=== PATIENT | female | born 1940 | race Caucasian/White ===

== ENCOUNTER 2017-08-20 11:13 | Outpatient (CLI) | payer MEDICARE ==
--- NOTE | 2017-08-20 16:34 | CT ---
CT THORACIC SPINE WITHOUT CONTRAST: Technique: Multiple axial tomograms were obtained through the thoracic spine with multiplanar reconst ructions. History: Follow up compression fracture. Comparison: MRI 06-04-17. That exam revealed edema and mild compression of the T7 vertebra. FINDINGS: Mild anterior wedging of the T7 vertebra is again noted with loss of central and anterior height ron mated in the 30% range. The degree of height loss has progressed slightly since the 06-04-17 exam. The re is some mottled sclerosis within this vertebra. The other thoracic vertebra maintain height and alignment. Degenerative changes are seen with anterio r and lateral osteophytes. Hemangioma is noted involving the T1 vertebra which corresponds to MRI fin dings. No evidence of disc bulge or disc protrusion seen at the T6-7 or T7-8 levels. IMPRESSION: Compression fracture involving the T7 vertebra is again noted. There is also central and anterior hei ght loss which has slightly progressed when compared to the prior MRI. No retropulsion. POS: [facility]
== END 2017-08-20 11:14 | disposition home or self-care (01) ==
LOC: TBSIIMAG 11:13
PROVIDERS: ATTEND Surgery
DX: M48.54XA Collapsed vertebra, not elsewhere classified, thoracic region, initial encounter for fracture (principal)
CPT/HCPCS: 72128

== ENCOUNTER 2019-12-16 11:53 | Outpatient (CLI) | payer MEDICARE ==
--- NOTE | 2019-12-17 11:03 | PET ---
PET CT: HISTORY: An 79-year-old female with moderately differentiated pancreatic adenocarcinoma. Exam requested for i nitial staging. TECHNIQUE: PET scanning with CT attenuation was performed from the base of the brain through the proximal thighs following the intravenous administration of 12.4 mCi [id number] in the left antecubital fossa. CORRELATION: CT abdomen and pelvis of 11/20/2019. FINDINGS: There is hypermetabolic activity in the pancreatic body mass with an SUV of 5.8. No sylvia hypermetabolism is seen in the neck, chest, abdomen, or pelvis. No hypermetabolic pulmonary nodules, liver, adrenal, or skeletal lesions are seen. There are a couple of FDG intense foci in the sigmoid colon with an SUV of 9.1. Also noted is a focu s of intense uptake in the small bowel loop in the mid abdomen just anterior to the abdominal aorta w ith an SUV of 6.7. There is physiologic activity in the GI and tracts. The CT scan used for attenuation correction demonstrates no evidence of pleural effusions or ascites. IMPRESSION: 1. Pancreatic malignancy. 2. Further evaluation with colonoscopy and capsule endoscopy is recommended to evaluate the bowel fi ndings. POS: [facility]ICK[facility]
== END 2019-12-16 11:54 | disposition home or self-care (01) ==
LOC: PET 11:53
PROVIDERS: ATTEND Internal Medicine Hematology & Oncology
DX: C25.9 Malignant neoplasm of pancreas, unspecified (principal)
CPT/HCPCS: 78815; A9552

== ENCOUNTER 2020-02-27 07:21 | Outpatient (CLI) | payer MEDICARE, OTHER ==
[2020-02-27 15:49] LABS: #Eosinphils 0.2 thou/uL (0.0-0.7); #Lymphocytes 2.9 thou/uL (1.20-3.40); #Neutrophils 6.3 thou/uL (1.40-6.50); %Basophils 0.5 % (0.0-1.0); %Eosinophils 1.8 % (0.0-10.0); %Lymphocytes 27.7 % (21.0-51.0); %Monocytes 9.9 % (0.0-10.0); %Neutrophils 60.1 % (42.0-75.0); Hemoglobin 10.9 g/dL (12.0-16.0); Mean Corpuscular HGB CONC 31.9 g/dL (32.0-36.0); Mean Corpuscular Hemoglobin 29.9 pg (27.0-31.0); Mean Corpuscular Volume 93.8 fL (78.0-98.0); Platelet Count 458 thou/uL (130-400); RBC Distribution Width 12.4 % (11.5-14.5); Red Blood Cell (RBC) Count 3.66 mill/uL (4.20-5.40); White Blood Cell (WBC) Count 10.5 thou/uL (4.8-10.8)
--- NOTE | 2020-02-27 16:07 | RAD ---
PA AND LATERAL OF THE CHEST: 02/27/20 INDICATION: Preadmission chest radiograph. COMPARISON: Prior exam dated 02/18/20. FINDINGS: Chronic lung changes are stable appearing. Heart size is normal. The aorta is tortuous. There is mild spondylosis of the thoracic spine. Mild wedge compression abnormality of T8 is stable appearing. IMPRESSION: No acute cardiopulmonary abnormality. POS: [facility]
[2020-02-27 16:12] LABS: Anion Gap 14 mmol/L (10-20); BUN (Urea Nitrogen) 10 mg/dL (9.8-20.1); Calc. Creatinine Clearance 0 mL/min (70-130); Calcium 8.9 mg/dL (7.8-10.44); Carbon Dioxide 21 mmol/L (23-31); Chloride 102 mmol/L (98-107); Estimated GFR-MDRD 51; Glucose 285 mg/dL (83-110); Potassium 3.7 mmol/L (3.5-5.1); Sodium 133 mmol/L (136-145)
[2020-02-28 16:49] LABS: SARS-CoV-2 MS2 Positive; SARS-CoV-2 N Gene Negative; SARS-CoV-2 S Gene Negative; SARS-CoV-2 orf1ab Negative
== END 2020-02-27 07:22 | disposition home or self-care (01) ==
LOC: LABBT 07:21
PROVIDERS: ATTEND Surgery
DX: Z01.818 Encounter for other preprocedural examination (principal); Z11.59 Encounter for screening for other viral diseases; C25.9 Malignant neoplasm of pancreas, unspecified
CPT/HCPCS: 71046; 80048; 85025; U0003; 87635

== ENCOUNTER 2020-03-01 09:38 | Day surgery (SDC) | payer MEDICARE ==
[2020-02-27 14:39] VITALS: BMI 26.4
[2020-03-01] MEDS ORDERED: Propofol 500 MG/50 ML VIAL ONE (10:49)
[2020-03-01] MEDS ORDERED: Lidocaine 1% w/Epinephrine 1:100K 20 ML VIAL ONE (11:03)
[2020-03-01] MEDS ORDERED: Bupivacaine 0.25% HCL 30 ML VIAL ONE (11:03)
--- NOTE | 2020-03-01 12:22 | RAD ---
RADIOGRAPH CHEST 1 VIEW: DATE: 03/01/2020 HISTORY: Status post MediPort placement in 79-year-old female with pancreatic cancer. COMPARISON: 02/27/2020 FINDINGS: The thoracic aorta is tortuous and ectatic. There is no evidence of airspace density, cardiomegaly, p ulmonary edema, or pneumothorax. The lateral costophrenic angles are not effaced. There is a new right vascular access port loops and descending from the right medial neck, with distal tip overlying the right hilum. IMPRESSION: 1) No acute pulmonary findings. 2) ectasia of thoracic aorta. 3) right-sided implantable vascular access port placement without pneumothorax.
[2020-03-01] MEDS ORDERED: Lidocaine 1% PF 5 ML VIAL ONE (13:10)
--- NOTE | 2020-03-01 23:45 | OP ---
DATE OF PROCEDURE: 03/01/2020 PREOPERATIVE DIAGNOSIS: Pancreatic cancer. POSTOPERATIVE DIAGNOSIS: Pancreatic cancer. PROCEDURE PERFORMED: Tunneled central line with subcutaneous port (MediPort). ANESTHESIA: General. ESTIMATED BLOOD LOSS: Minimal. COMPLICATIONS: None. SPECIMEN: None. FINDINGS: Tip of the catheter is at atriocaval junction. DESCRIPTION OF PROCEDURE: The patient was taken to the operating room and laid supine on the operating room table. After general anesthetic was obtained, the bladder, neck, and chest were prepped and draped in a sterile fashion. Local anesthetic was infiltrated over the right internal jugular vein. Internal jugular vein was cannulated using a 22-gauge spinal needle followed by a Seldinger needle. Wire was passed into the superior vena cava under fluoro guidance. A small link was made at the wire entrance side. A separate 3 cm incision was made in the right upper chest. Subcutaneous pocket was made the lower incision, tubing for the MediPort tunnel from the inferior to the superior incision, an introducer sheath was placed over the wire into the superior vena cava under fluoro guidance. The dilator and wire were removed. The end of the catheter sewed into the sheath. The sheath was peeled away. The tip of the catheter was at the atriocaval junction. The MediPort tubing was cut to fit the MediPort at the lower incision, connected to the MediPort, which was sewn to the chest wall in the subcutaneous pocket using Prolene. The MediPort flushes and blaine blood without difficulties, flushed with a heparin solution. The wounds were all irrigated and closed using 3-0 Vicryl, 4-0 Monocryl and Dermabond. The patient was sent to Recovery in stable condition. All instrument counts, needle counts, and lap counts were correct. Job ID: [id number]
--- NOTE | 2020-03-02 11:39 | EKG ---
Test Reason : PREOP Blood Pressure : / mmHG Vent. Rate : 080 BPM Atrial Rate : 080 BPM P-R Int : 172 ms QRS Dur : 072 ms QT Int : 394 ms P-R-T Axes : 049 000 016 degrees QTc Int : 454 ms Normal sinus rhythm Cannot exclude Inferior infarct , age undetermined Low voltage QRS Abnormal ECG Confirmed by JOANN MAYNARD ([id number]) on 03/02/2020 11:39:24 AM Referred By: AMY Confirmed By:JOANN MAYNARD
== END 2020-03-01 13:30 | disposition home or self-care (01) ==
LOC: SDC 09:38
PROVIDERS: ATTEND Surgery
PROC: 0JH60WZ Insertion of Totally Implantable Vascular Access Device into Chest Subcutaneous Tissue and Fascia, Open Approach (ICD-10-PCS; principal; 2020-03-01)
PROC: 02HV33Z Insertion of Infusion Device into Superior Vena Cava, Percutaneous Approach (ICD-10-PCS; 2020-03-01)
PROC: B518ZZA Fluoroscopy of Superior Vena Cava, Guidance (ICD-10-PCS; 2020-03-01)
DX: C25.9 Malignant neoplasm of pancreas, unspecified (principal); K21.9 Gastro-esophageal reflux disease without esophagitis; E78.5 Hyperlipidemia, unspecified; E11.9 Type 2 diabetes mellitus without complications; Z79.4 Long term (current) use of insulin; Z79.82 Long term (current) use of aspirin; Z79.899 Other long term (current) drug therapy; Z88.1 Allergy status to other antibiotic agents; Z88.2 Allergy status to sulfonamides; Z91.048 Other nonmedicinal substance allergy status
CPT/HCPCS: 36416; 71045; 76000; 93005; 93010; C1788; J0690; J1642; J2001; J2704; S0020

== ENCOUNTER 2020-03-31 08:07 | Inpatient (IN) | payer MEDICARE, OTHER ==
--- NOTE | 2020-03-31 08:43 | RAD ---
EXAM: CHEST ONE VIEW HISTORY: Altered mental status. Sepsis alert. Diarrhea. History of pancreatic cancer. COMPARISON: 03/01/2020 FINDINGS: Right-sided Mediport remains in place. The cardiac silhouette and pulmonary vasculature are within no rmal limits. No consolidation or pleural fluid is seen. Chest is stable when compared to prior exam. IMPRESSION: No acute cardiopulmonary process.
[2020-03-31 09:03] LABS: Base Excess-Venous -18.5 mmol/L (-2.0 to 3.0); Bicarbonate (HCO3v) 7.4 mmol/L (22.0-28.0); CO2 Tension (PvCO2) 18.3 mmHg (40.0-50.0); Calcium, Ionized 1.14 mmol/L (See Comments:); Chloride 88 mmol/L (98-107); Hemoglobin - Calc 10.2 g/dL (12.0-16.0); Potassium 5.3 mmol/L (3.5-5.1); Sodium 113 mmol/L (138-145); T. Carbon Dioxide 7.9 mmol/L (22.0-28.0); vO2 Saturation-calc 60.2 % (60.0-85.0)
[2020-03-31 09:03] LABS: Hemoglobin 10.4 g/dL (12.0-16.0); Mean Corpuscular HGB CONC 31.1 g/dL (32.0-36.0); Mean Corpuscular Hemoglobin 29.5 pg (27.0-31.0); Mean Corpuscular Volume 94.9 fL (78.0-98.0); Red Blood Cell (RBC) Count 3.52 mill/uL (4.20-5.40); White Blood Cell (WBC) Count 1.2 thou/uL (4.8-10.8)
[2020-03-31] MEDS ORDERED: Ondansetron PF 4 MG/2 ML Vial ONE (09:08)
[2020-03-31] MEDS ORDERED: Fentanyl 100 MCG/2 ML VIAL ONE ×2 (09:08→10:57)
[2020-03-31] MEDS ORDERED: Insulin Regular 300 UNITS/3 ML VIAL ONE (09:08)
[2020-03-31] MEDS ORDERED: Insulin Regular 100 units/100 ml in NS IVPB SCH (09:15)
[2020-03-31 09:20] LABS: Magnesium 2.1 mg/dL (1.6-2.6); Phosphorus 5.8 mg/dL (2.3-4.7)
[2020-03-31 09:23] LABS: ALT (SGPT) 18 U/L (8-55); AST (SGOT) 9 U/L (5-34); Alkaline Phosphatase 94 U/L (40-110); BUN (Urea Nitrogen) 58 mg/dL (9.8-20.1); Bilirubin, Total 1.1 mg/dL (0.2-1.2); Calc. Creatinine Clearance 0 mL/min (70-130); Calcium 7.6 mg/dL (7.8-10.44); Chloride 91 mmol/L (98-107); Estimated GFR-MDRD 21; Globulin 1.8 g/dL (2.4-3.5); Potassium 5.3 mmol/L (3.5-5.1); Protein, Total 4.8 g/dL (6.0-8.3)
[2020-03-31 09:24] LABS: Band 20 % (5-11); Burr Cells MODERATE= 6-15 cells (100X) (0-1/hpf); Lymphocytes 32 % (21-51); MDiff Complete? YES; Mean Platelet Volume 9.5 fL (7.4-10.4); Metamyelocyte 4 % (0-0); Monocytes 16 % (0-10); Neutrophil 28 % (42-75); Nucleated RBC 2 % (0); Platelet Count 92 thou/uL (130-400); Platelet Morphology Comment Appears Decreased; Polychromasia SLIGHT = 2-3 cells (100X) (0-2/hpf); RBC Distribution Width 12.3 % (11.5-14.5); Toxic Granulation SLIGHT
[2020-03-31 09:25] LABS: Carbon Dioxide Less than 8 mmol/L (23-31); Glucose 729 mg/dL (83-110); Sodium 116 mmol/L (136-145)
--- NOTE | 2020-03-31 10:26 | CT ---
CT ABDOMEN AND PELVIS WITHOUT CONTRAST: Date: 03/31/2020 HISTORY: 79-year-old female with diarrhea, nausea, and vomiting. Patient is undergoing chemotherapy for pancre atic cancer. COMPARISON: 11/20/2019. FINDINGS: Absence of oral and IV contrast reduces the sensitivity of exam, particularly for evaluation of solid organs and bowel. The lung bases are unremarkable. There is interval development of portal venous gas in the liver. The pattern of gas is peripheral. Th ere is pneumatosis in the small bowel sams in the right lower quadrant with a small amount of extral uminal air. There is a small to moderate amount of free fluid in the pelvis. There is colonic diverti culosis. There is thickening of the wall of the descending colon with pericolonic inflammatory change s in the left upper quadrant and mid abdomen. No calcified gallstones are seen. No calculi seen in the kidneys, ureters, or the urinary bladder. No hydroureteronephrosis noted on either side. There are vascular calcifications without evidence of aneurysmal dilatation of the abdominal aorta. A hiatal hernia is present. There are degenerative changes in the spine. IMPRESSION: 1. Portal venous gas, pneumatosis with bowel perforation. Findings are highly suspicious for ischemi c bowel. 2. Colonic diverticulosis with diverticulitis on the left. Discussed over the phone with LAURENCE Winston, in the ER at [address] Bustamante at 10:35 am. CODE CR.
[2020-03-31] MEDS ORDERED: PROPOFOL 200 MG/20 ML VIAL ONE (10:42)
[2020-03-31] MEDS ORDERED: PHENYLEPHRINE-NS 100 MCG/ML 10 ML SYRINGE ONE (10:42)
[2020-03-31] MEDS ORDERED: EPHEDRINE 25 MG/5 ML SYRINGE ONE ×2 (10:42)
[2020-03-31] MEDS ORDERED: Rocuronium Bromide 10 MG/ML (10ML VIAL) ONE (10:42)
[2020-03-31] MEDS ORDERED: Lidocaine 1% PF 5 ML VIAL ONE (10:42)
[2020-03-31] MEDS ORDERED: Succinylcholine Chloride 20 MG/ML 10 ml SYRINGE FS ONE (10:42)
[2020-03-31] MEDS ORDERED: Calcium Chloride 1 GM/10 ML Abboject SYRINGE ONE ×3 (10:42→12:07)
[2020-03-31] MEDS ORDERED: Piperacillin/Tazobactam 4.5 GM VIAL ONE (10:57)
[2020-03-31] MEDS ORDERED: Phenylephrine 10 MG/ML VIAL ONE (11:04)
[2020-03-31] MEDS ORDERED: Ketamine 50 MG/ML (10ML VIAL) ONE (11:04)
[2020-03-31] MEDS ORDERED: Fentanyl 250 MCG/5 ML VIAL ONE (11:04)
[2020-03-31] MEDS ORDERED: Albumin 5% 500 ML ONE ×2 (11:04→12:16)
[2020-03-31] MEDS ORDERED: Midazolam HCl 2 mg/2 ml Vial ONE (11:04)
[2020-03-31 11:06] LABS: Actual Bicarbonate (HCO3a) 5.6 mEq/L (22-28); Analyzer IN Cardio ER; Base Excess (BEa) -20.6 mEq/L (-2.0 to +3.0); Calcium, Ionized (arterial) 1.12 mmol/L (1.12-1.30); Carboxyhemoglobin (COHb) 0.3 gm% (0.0-3.0); Hemoglobin (Hb) 9.9 g/dL (12.0-16.0); O2 Tension (PaO2), arterial 107.5 mmHg (> 60.0); Potassium - ABG Lab 4.07 mmol/L (3.70-5.30)
[2020-03-31 11:11] LABS: pH, Arterial 7.19 (7.35-7.45)
[2020-03-31 11:12] LABS: Puncture Site RRA
[2020-03-31] MEDS ORDERED: Sodium Bicarb 50 MEQ/50 ML VIAL ONE ×3 (11:32→12:07)
[2020-03-31 11:35] LABS: INR-International Normal Ratio 2.2; PTT 28.1 sec (22.9-36.1); Prothrombin Time 24.1 sec (12.0-14.7)
[2020-03-31] MEDS ORDERED: Norepinephrine 4 MG/4 ML VIAL ONE (11:42)
--- NOTE | 2020-03-31 11:54 | PDOC.FPRHP ---
- History of Present Illness Chief Complaint: Abdominal Pain, N/V History of Present Illness: Patient is an 79 yo female who was sent to the emergency department by her oncologist Dr. Gamble due to continued diarrhea, nausea, and vomiting that started approximately 1 week ago on March 23. Yesterday she developed severe abdominal pain which has gotten progressively worse since. She developed some additional SOB this morning which prompted the patient to come to the ER. The patient is currently undergoing chemotherapy for pancreatic cancer. Her last chemo was March 23. Patient currently states she is in severe pain, having difficulty forming sentences secondary to this. Also continues to complain of having some difficulty breathing. Per ED physician, preliminary report of CT abdomen was called in and shows possible bowel perforation and ischemic bowel. Dr. Vicente at bedside evaluating patient during this dictation and preparing to take patient back to OR for emergent exploratory laparotomy. Consents were signed. 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 ED Course: Given Zosyn, Fentanyl, 2L NS bolus, Novolin 6 units/hr insulin drip, Zofran. - Allergies/Adverse Reactions Allergies Allergy/AdvReac Type Severity Reaction Status Date / Time azithromycin Allergy Verified 02/27/20 14:40 cedar leaf Allergy Verified 02/27/20 14:40 cedarwood Allergy Verified 02/27/20 14:40 Sulfa (Sulfonamide Allergy Verified 02/27/20 14:40 Antibiotics) - Home Medications Medication Instructions Recorded Confirmed Type Aspirin [Children's Aspirin] 81 mg PO DAILY 06/03/17 02/27/20 History Esomeprazole Magnesium [NexIUM] 40 mg PO QAM 06/03/17 02/27/20 History Lisinopril [Zestril] 2.5 mg PO DAILY 06/03/17 02/27/20 History Simvastatin [Zocor] 20 mg PO QPM 06/03/17 02/27/20 History glipiZIDE [glipiZIDE XL] 2 tab PO BID-AC 06/03/17 02/27/20 History ALPRAZolam [Xanax] 1 tab PO ASDIR PRN 02/27/20 02/27/20 History Insulin Lispro [Humalog Kwikpen] unit SQ TID 02/27/20 History Lipase/Protease/Amylase [Creon DR 1 tab PO AC 02/27/20 02/27/20 History 36,000 Units] Mometasone/Formoterol 100/5 2 puff INH BID PRN 02/27/20 02/27/20 History [Dulera 100 Mcg/5 Mcg Inhaler] Ondansetron [Zofran ODT] 1 tab PO ASDIR PRN 02/27/20 02/27/20 History Polyethylene Glycol 3350 [Miralax] 17 gm PO DAILY 02/27/20 02/27/20 History Vit A/Vit C/Vit E/Zinc/Copper 1 tablet PO BID 02/27/20 02/27/20 History [PreserVision AREDS] - History PMHx: Pancreatic Cancer, HTN, HLD, IDDM, Anxiety, Sciatica, GERD PSHx: MARVIN-BSO, Tonsillectomy FHx: unobtainable Social: Denies tobacco, EtOH use. 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 - Review of Systems General: reports: weight/appetite/sleep changes (decreased appetite), fatigue. denies: fever/chills ENT: denies: nasal congestion Respiratory: reports: shortness of breath. denies: cough, congestion Cardiovascular: denies: chest pain, palpitation Gastrointestinal: reports: nausea, vomiting, diarrhea, abdominal pain Genitourinary: denies: dysuria Skin: denies: rashes, lesions Musculoskeletal: denies: pain Neurological: reports: weakness. denies: numbness - Vital signs BP: 98.4F HR: 109 RR: 26 Tmax: 98.4F Pox: 95% on RA Wt: 68 kg - Physical Exam Constitutional: awake, alert and oriented (moderate distress) HEENT: normocephalic and atraumatic, EOMI, conjunctiva clear, grossly normal vision, grossly normal hearing -HEENT: dry mucous membranes Neck: supple, no JVD Chest: no-tender to palpation, no lesions Heart: normal S1/S2, no murmurs/rubs/gallops, pulses present, no edema -Heart: tachycardic Lungs: good air movement, no wheezing -Lungs: occasional crackles -Abdomen: severe TTP in all quadrants Musculoskeletal: normal structure, normal tone Neurological: no focal deficit Skin: no rash/lesions Heme/Lymphatic: no unusual bruising or bleeding -Psychiatric: anxious affect FMR H&P: Results - Labs Result Diagrams: 03/31/20 08:30 03/31/20 08:30 Lab results: WBC 1.2 thou/uL (4.8-10.8) L 03/31/20 08:30 Hgb 10.4 g/dL (12.0-16.0) L 03/31/20 08:30 Hct 33.4 % (36.0-47.0) L 03/31/20 08:30 MCV 94.9 fL (78.0-98.0) 03/31/20 08:30 Plt Count 92 thou/uL (130-400) L 03/31/20 08:30 Band Neuts % (Manual) 20 % (5-11) H 03/31/20 08:30 ABG pH 7.19 (7.35-7.45) L* 03/31/20 10:53 ABG pCO2 15.0 mmHg (35.0-45.0) L* 03/31/20 10:53 ABG pO2 107.5 mmHg (> 60.0) H 03/31/20 10:53 VBG pCO2 18.3 mmHg (40.0-50.0) L* 03/31/20 09:00 VBG pO2 36.5 mmHg (35.0-45.0) 03/31/20 09:00 Sodium 116 mmol/L (136-145) L* 03/31/20 08:30 Potassium 5.3 mmol/L (3.5-5.1) H 03/31/20 08:30 Chloride 91 mmol/L (98-107) L 03/31/20 08:30 Carbon Dioxide Less than 8 mmol/L (23-31) L* 03/31/20 08:30 BUN 58 mg/dL (9.8-20.1) H 03/31/20 08:30 Creatinine 2.21 mg/dL (0.6-1.1) H 03/31/20 08:30 Glucose 729 mg/dL (83-110) H* 03/31/20 08:30 Lactic Acid 6.6 mmol/L (0.5-2.2) H* 03/31/20 08:30 Calcium 7.6 mg/dL (7.8-10.44) L 03/31/20 08:30 Total Bilirubin 1.1 mg/dL (0.2-1.2) 03/31/20 08:30 AST 9 U/L (5-34) 03/31/20 08:30 ALT 18 U/L (8-55) 03/31/20 08:30 Alkaline Phosphatase 94 U/L (40-110) 03/31/20 08:30 Serum Total Protein 4.8 g/dL (6.0-8.3) L 03/31/20 08:30 Albumin 3.0 g/dL (3.4-4.8) L 03/31/20 08:30 - Radiology Interpretation CT scan - abdomen Status: image reviewed by me, report reviewed by me (Portal venous gas, pneumatosis with bowel perforation. Findings are highly suspicious for ischemic bowel. Colonic diverticulosis with diverticulitis on the left.) Chest x-ray Status: report reviewed by me (No acute cardiopulmonary process.) FMR H&P: A/P - Problem List (1) Large bowel perforation Current Visit: Yes Status: Acute Code(s): K63.1 - PERFORATION OF INTESTINE ( NONTRAUMATIC) (2) Ischemia, bowel Current Visit: Yes Status: Acute Code(s): K55.9 - VASCULAR DISORDER OF INTESTINE, UNSPECIFIED (3) DKA (diabetic ketoacidoses) Current Visit: Yes Status: Acute Code(s): E11.10 - TYPE 2 DIABETES MELLITUS WITH KETOACIDOSIS WITHOUT COMA Qualifiers: Diabetes mellitus type: type 2 Diabetes mellitus complication detail: without coma Qualified Code(s): E11.10 - Type 2 diabetes mellitus with ketoacidosis without coma (4) Hyponatremia Current Visit: Yes Status: Acute Code(s): E87.1 - HYPO-OSMOLALITY AND HYPONATREMIA (5) Hyperkalemia Current Visit: Yes Status: Acute Code(s): E87.5 - HYPERKALEMIA (6) IDDM (insulin dependent diabetes mellitus) Current Visit: Yes Status: Acute Code(s): NME1236 - (7) Pancreatic cancer Current Visit: Yes Status: Acute Qualifiers: Pancreatic malignancy location: unspecified Qualified Code(s): C25.9 - Malignant neoplasm of pancreas, unspecified - Plan Patient is an 79 yo female who presents with N/V/D and SOB is admitted for suspected bowel perforation and DKA: DKA -admission glucose 729, Beta-hydroxybutyrate 4.42 -admission ABG: pH 7.19, pCO2 15, pO2 107.5, HCO3 7.4, base excess -20.5 -lactic acid 6.6 -admission to CCU, placed DKA protocol -insulin gtt started at 6 u/hr by ED, will continue -glucose checks q1h Bowel Perforation, Ischemic Bowel -symptoms since 03/23, abdominal pain developed 03/29 -CT abd shows ischemic large bowel, free air suggestive of bowel perforation, left sided diverticulitis -Consult General Surgery-Dr. Vicente, appreciate recommendations -plans to take patient from ED directly to OR for exploratory laparotomy -await further recs after surgery RENETTA -likely 2/2 above -admission BUN 58, Cr 2.21 -s/p 2L NS bolus in ED, continue IVF hydration Hyponatremia -admission Na 119, corrected to 126 -follow with serial BMPs per DKA protocol Hyperkalemia -K 5.3 on admission, likely 2/2 DKA -monitor on serial BMPs Thrombocytopenia -Plt 92 on admission, per Dr. Vicente does not need platelet transfusion prior to surgery -likely 2/2 chemo Neutropenia -likely 2/2 chemo -Neutropenic precautions placed Diet: NPO for surgery VTE: pending surgery Code status: FULL PCP: Joshua Dispo: Guarded, admission to CCU. General surgery consulted, plan to take patient to OR now for ex lap, await further recommendations after surgery. DKA protocol in place. Anticipate LOS >48 hrs. Disposition/LOS: Marcelle Hawkins, PGY-2 Addendum - Attending - Attending Attestation Date/Time: 03/31/20 3123 I personally evaluated the patient and discussed the management with Dr. Hawkins. I agree with the History, Examination, Assessment and Plan documented above with any addition or exceptions noted below. Patient with history of Pancreatic cancer s/p Whipple procedure now on chemotherapy with Dr. Gamble presenting with worsening abdominal pain and malaise. Upon lab investigation, patient found to be neutropenic, pseudohyponatremic, severe metabolic acidemia with lactic acidosis, suspected DKA with hyperglycemia to 700s, and RENETTA. This is a change in her labs from the trends over the last few days. CT scan showed suspected intestinal perforation with intestinal ischemia. Patient is being taken emergently to the OR for exploratory laparotomy. She will need aggressive fluid management and management of her DKA. Antibiotics, blood cultures, further mgmt pending Surgery team recs after surgery. Suspect guarded to poor prognosis but that could change depending on how the surgery progresses.
--- NOTE | 2020-03-31 12:18 | CON ---
DATE OF CONSULTATION: 03/31/2020 REQUESTING PHYSICIAN: Terrence Mercedes MD HISTORY OF PRESENT ILLNESS: This is an 79-year-old woman with recent history of pancreatic carcinoma, status post Whipple's, currently on chemotherapy to prevent recurrence. Apparently, the patient is in remission. The patient was recently seen by her oncologist complaining of diarrhea, but no abdominal pain at that time, but she looked well. Over the last 5 days, she started with abdominal pain, which intensified 3 days ago. She now rates the pain at "12/10" and is generalized. The patient was seen in the emergency department this morning with complaint of severe abdominal pain associated with malaise, tachycardia, and tachypnea. She was relatively hypotensive. PAST MEDICAL HISTORY: Pertinent for pancreatic carcinoma, diverticulosis coli, hyperlipidemia, gastroesophageal reflux disease, type 2 diabetes mellitus, and chronic back pain. PAST SURGICAL HISTORY: Significant for recent Whipple procedure 3 months ago, total abdominal hysterectomy with bilateral salpingo-oophorectomy, breast biopsy for benign disease, tonsillectomy and adenoidectomy as a child. She also had a Port-A-Cath placement recently for chemotherapy. SOCIAL HISTORY: She denies any cigarette smoking, ethanol, or illicit drug abuse. PREHOSPITALIZATION MEDICATIONS: Include: 1. Alprazolam 0.25 mg p.o. p.r.n. 2. Aspirin 81 mg p.o. daily. 3. Nexium 40 mg p.o. daily. 4. Glipizide 10 mg p.o. b.i.d. 5. Regular insulin sliding scale. 6. Lisinopril 2.5 mg p.o. daily. 7. Creon DR 36,000 units p.o. a.c. 8. Simvastatin 20 mg p.o. daily. 9. Multiple vitamins. ALLERGIES: 1. AZITHROMYCIN. 2. SULFA DRUGS. REVIEW OF SYSTEMS: Ten-point review of systems is essentially unremarkable except as stated in past medical history and chief complaint. PHYSICAL EXAMINATION: GENERAL: This reveals an 79-year-old, normally-developed woman, who is otherwise coherent and interactive and appears stated age. The patient is alert and oriented x3. She appears to be in acute distress secondary to severe abdominal pain. VITAL SIGNS: Include blood pressure of 109/50, pulse 109, respiratory rate is 26, temperature 98.4 degrees Fahrenheit, oxygen saturation 95% on room air. HEENT: Pupils are equal, round, and reactive to light bilaterally. HEART: Reveals regular rate with sinus tachycardia. No murmurs or gallops auscultated. LUNGS: Clear to auscultation bilaterally. Breathing, regular and nonlabored. ABDOMEN: Soft with diffuse tenderness to palpation and a positive rebound present. Liver and spleen are nonpalpable below costal margin. EXTREMITIES: Reveal 2+ radial and pedal pulses bilaterally. No ankle edema is present. NEUROLOGIC: Reveals no focal deficits present. LABORATORY FINDINGS: Today include CBC with 1200 white blood cells, hemoglobin and hematocrit 10.4 and 33.4 respectively. Platelet count is 92,000. Her white blood cell count was 10,500 on 02/27/2020, at which time, her platelet count was 458, 000. Metabolic profile today; sodium 116, potassium 5.3, chloride is 91, bicarb is 8 , BUN 58, creatinine is 2.21, glucose is 729. Lactic acid 6.6. Calcium is 7.6. Phosphorus is 5.8. Magnesium is 2.1. AST and ALT are normal at 9 and 18 respectively. Beta-hydroxybutyrate is elevated at 4.42. Please note that creatinine yesterday was 1.57 and was 1.13 on 03/24/2020. I have personally reviewed the CT scan of the abdomen and pelvis, which is remarkable for extensive portal venous gas with pneumatosis intestinalis involving a loop of small bowel with punctate extraluminal gas suggestive of perforation. Also noted is extensive calcification of the aorta, celiac and superior mesenteric artery at origin in this noncontrast CT scan of the abdomen and pelvis. There is diverticulosis coli with thickened bowel wall, which could be reactive to the current intraperitoneal process versus an acute sigmoid colon diverticulitis. IMPRESSION: 1. Acute ischemic bowel necrosis. 2. Acute peritonitis secondary to #1. 3. Acute kidney injury. 4. Acute diabetic ketoacidosis. 5. Acute neutropenia. 6. Acute thrombocytopenia. 7. Acute lactic acidosis secondary to #3 above. 8. Pseudohyponatremia. PLAN: 1. Exploratory laparotomy with bowel resection. 2. Continue with aggressive fluid resuscitation and insulin to treat the DKA. 3. Consider postoperative anticoagulation. Above findings and plan have been discussed with the patient and her power of erisa attorney at bedside. I have informed the patient of the risks and benefits of the proposed surgery to include, but not limited to, bleeding, infection, injury to bowel or surrounding structures. Abdomen will be left open today with the plan to return to the operating room for second-look prior to re-establishing bowel continuity. The patient is made aware that there is high likelihood that she will remain on mechanical ventilatory support postoperatively. She indicates understanding of information given. I have answered their questions. The patient has granted consent for this surgical intervention. Thank you again Dr. Mercedes for allowing me the opportunity to participate in the care of this patient. Total Critical Care time is 70 minutes. Job ID: [id number]
[2020-03-31 12:27] LABS: INR-International Normal Ratio 2.7; PTT 32.6 sec (22.9-36.1); Prothrombin Time 28.3 sec (12.0-14.7)
--- NOTE | 2020-03-31 13:03 | OP ---
DATE OF PROCEDURE: 03/31/2020 PREOPERATIVE DIAGNOSES: 1. Acute ischemic bowel necrosis. 2. Acute peritonitis secondary to #1. 3. Acute diabetic ketoacidosis secondary to #1. 4. Acute post-chemotherapy neutropenia. 5. Acute thrombocytopenia. POSTOPERATIVE DIAGNOSES: 1. Acute ischemic bowel necrosis. 2. Acute peritonitis secondary to #1. 3. Acute diabetic ketoacidosis secondary to #1. 4. Acute post-chemotherapy neutropenia. 5. Acute thrombocytopenia. PROCEDURES PERFORMED: 1. Exploratory laparotomy. 2. Partial small-bowel resection. 3. Abdominal washout. 4. Temporary abdominal closure with wound VAC. ANESTHESIA: General endotracheal. ESTIMATED BLOOD LOSS: 20 mL. FLUIDS GIVEN: 3000 mL crystalloids and 500 mL of 5% albumin. COUNTS: Sponge and instrument counts were verified as correct x2. COMPLICATIONS: None apparent at the time of operation. INDICATIONS FOR OPERATION: This is an 79-year-old woman, recently diagnosed with pancreatic carcinoma, in remission, on chemotherapy for suppression. The patient presented with a 3- to 5-day history of worsening abdominal pain, which she now rates at 12/10. Clinical and radiographic examinations were consistent with acute ischemic bowel necrosis, for which the patient was brought to the operating room for exploration. The findings are consistent with necrotic segment of jejunum, measuring approximately 75 cm in length. DESCRIPTION OF PROCEDURE: Informed consent was obtained from the patient who was brought to the operating room and placed in supine position. Following general anesthesia, a Saldana catheter was inserted and placed to bedside drain. Nasogastric tube inserted and placed to wall suction. Abdomen was sterilely prepped and draped in the usual fashion. A midline incision was made using a 10 scalpel. Incision was carried through subcutaneous tissues and maintained hemostasis using cautery. Fascia was incised in line of the incision using cautery, exposing the peritoneum beneath, which was grasped x2 with hemostats. The peritoneal cavity was sharply entered using Metzenbaum scissors. The incision was then extended superiorly and inferiorly. A Bookwalter retractor was put in place to gain exposure. Small bowel was run from the ligament of Treitz down to midjejunum where the bowel was necrotic to a length of approximately 75 cm. We created a rent through the mesentery of the small bowel proximal and distal to the involved segment. Through these rent, WALTER stapler was introduced and bowel was divided. Mesentery of the specimen was serially divided using LigaSure device with good hemostasis. Specimen was passed off the operative field for transmission to Pathology. Small bowel was then run distal to this involved segment all the way down to the ileocecal junction. The large intestine inspected from the cecum through the ascending, transverse, descending, sigmoid colon, and rectum. No other pathology was evident. Finding no other pathology, exploration was terminated. The abdomen was irrigated with saline. Small bowel returned to normal anatomic location. I then used an ABThera dressing to cover the viscera. Next, a wound VAC sponge was placed over this. An external wound VAC dressing was drawn over the entire abdomen and connected to vacuum assisted device with good suction at 25 mmHg. The patient tolerated this operation without any apparent complication and was returned to the intensive care unit in critical, but stable condition. Job ID: [id number]
[2020-03-31] MEDS ORDERED: HUMULIN R 100 UNITS in Sodium Chloride 0.9% 100 ML IVPB SCH (13:12)
[2020-03-31] MEDS ORDERED: Electrolyte Replacement Protoc 1 EACH EACH IVPB ONE (13:12)
[2020-03-31] MEDS ORDERED: Ventilator Sedation Protocol 1 EACH FS ONE (13:12)
[2020-03-31] MEDS ORDERED: NS 0.9% w/ 20 MEQ KCL 1,000 ML IV PRN ×2 (13:12)
[2020-03-31] MEDS ORDERED: D5 1/2 NS w/20 mEq KCL 1,000 ML IV PRN (13:12)
[2020-03-31] MEDS ORDERED: Dextrose 5 %-0.45 % NaCl 1,000 ML IV PRN (13:12)
[2020-03-31] MEDS ORDERED: Sodium Chloride 0.9% 1,000 ML IV PRN ×4 (13:12)
[2020-03-31] MEDS ORDERED: Morphine 4 MG/ML VIAL ONE (13:18)
[2020-03-31] MEDS ORDERED: Morphine 2 MG/ML VIAL SLOW IVP PRN (13:22)
[2020-03-31] MEDS ORDERED: Propofol BOLUS 1,000 MG/100 ML VIAL IV PRN (13:22)
[2020-03-31] MEDS ORDERED: Fentanyl BOLUS 250 ML IVPB PRN (13:22)
[2020-03-31] MEDS ORDERED: Propofol 1,000 MG/100 ML VIAL IV PRN (13:22)
[2020-03-31] MEDS ORDERED: Lorazepam 2 MG/ML VIAL SLOW IVP PRN (13:22)
[2020-03-31] MEDS ORDERED: DISCONTINUE PREVIOUS NARCOTIC PAIN MEDICATIONS AND BENZODIAZEPINES FS SCH (13:22)
[2020-03-31 13:23] LABS: Actual Bicarbonate (HCO3a) 12.9 mEq/L (22-28); Base Excess (BEa) -13.9 mEq/L (-2.0 to +3.0); CO2 Tension 33.7 mmHg (35.0-45.0); Calcium, Ionized (arterial) 1.36 mmol/L (1.12-1.30); Hemoglobin (Hb) 8.5 g/dL (12.0-16.0); O2 Tension (PaO2), arterial 246.7 mmHg (> 60.0); Potassium - ABG Lab 3.19 mmol/L (3.70-5.30)
[2020-03-31 13:26] LABS: ALV-art Gradient 138.975 (0-20); Puncture Site LINE
[2020-03-31] MEDS ORDERED: Electrolyte Replacement Protocol FS PRN (13:30)
[2020-03-31] MEDS: Sodium Bicarb 50 MEQ/50 ML Abboject 8.4% SYRINGE ONE (13:35)
[2020-03-31] MEDS: fentaNYL Citrate/PF 2,000 MCG in Sodium Chloride 0.9% 60 ML IV SCH (13:42)
[2020-03-31 13:47] LABS: Hemoglobin 8.2 g/dL (12.0-16.0); Platelet Count 69 thou/uL (130-400)
[2020-03-31] MEDS: Heparin 25,000 units/D5W 500 ML IVPB SCH (13:55)
[2020-03-31] MEDS: Heparin 10,000 UNITS/ 10 ML VIAL SLOW IVP SCH (14:02)
[2020-03-31 14:09] LABS: Anion Gap 18 mmol/L (10-20); BUN (Urea Nitrogen) 51 mg/dL (9.8-20.1); Calc. Creatinine Clearance 0 mL/min (70-130); Carbon Dioxide 14 mmol/L (23-31); Chloride 101 mmol/L (98-107); Estimated GFR-MDRD 27; Glucose 353 mg/dL (83-110); Potassium 3.2 mmol/L (3.5-5.1); Sodium 130 mmol/L (136-145)
[2020-03-31] MEDS: Sodium Chloride 0.9% 1,000 ML IV SCH ×2 (14:30→15:20)
[2020-03-31] MEDS ORDERED: Potassium Chloride 40 MEQ in Sodium Chloride 0.9% 250 ML 250 ML IVPB SCH (14:30)
[2020-03-31 15:14] LABS: Anion Gap 16 mmol/L (10-20); BUN (Urea Nitrogen) 46 mg/dL (9.8-20.1); Calc. Creatinine Clearance 35 mL/min (70-130); Carbon Dioxide 17 mmol/L (23-31); Chloride 104 mmol/L (98-107); Estimated GFR-MDRD 32; Glucose 294 mg/dL (83-110); Magnesium 1.5 mg/dL (1.6-2.6); Sodium 135 mmol/L (136-145)
[2020-03-31 15:19] LABS: Phosphorus 1.7 mg/dL (2.3-4.7); Potassium 2.4 mmol/L (3.5-5.1); Troponin I 0.026 ng/mL (< 0.028)
[2020-03-31] MEDS ORDERED: Hydrocortisone Sod Succ/PF 100 mg/2 ml Vial IVP SCH (15:45)
[2020-03-31] MEDS ORDERED: Magnesium Sulfate 3 GM in Sodium Chloride 0.9% 250 ML 250 ML IVPB SCH ×3 (15:45→17:30)
[2020-03-31] MEDS ORDERED: Albumin 5% 250 ML ONE (16:22)
[2020-03-31] MEDS ORDERED: Potassium Phosphate 30 MMOL in Sodium Chloride 0.9% 250 ML 250 ML IVPB SCH (16:45)
[2020-03-31] MEDS: Hydrocortisone Sod Succ/PF 100 mg/2 ml Vial IVP SCH (17:25)
[2020-03-31] MEDS: Piperacillin/Tazobactam 3.375 GM in Sodium Chloride 0.9% 100 ML IVPB SCH ×2 (17:38→22:04)
[2020-03-31 17:46] LABS: Anion Gap 16 mmol/L (10-20); BUN (Urea Nitrogen) 49 mg/dL (9.8-20.1); Calc. Creatinine Clearance 34 mL/min (70-130); Calcium 8.4 mg/dL (7.8-10.44); Carbon Dioxide 16 mmol/L (23-31); Chloride 104 mmol/L (98-107); Estimated GFR-MDRD 30; Glucose 271 mg/dL (83-110); Sodium 133 mmol/L (136-145)
[2020-03-31 17:55] LABS: Potassium 2.5 mmol/L (3.5-5.1)
[2020-03-31 18:35] LABS: Potassium 2.6 mmol/L (3.5-5.1)
[2020-03-31 19:34] LABS: Lactic Acid 8.8 mmol/L (0.5-2.2)
[2020-03-31 19:37] LABS: PTT Greater than 250.0 sec (22.9-36.1)
[2020-03-31 19:40] LABS: Troponin I 0.025 ng/mL (< 0.028)
[2020-03-31] MEDS ORDERED: Sodium Chloride 0.9% 500 ML IV SCH (20:00)
[2020-03-31 21:35] LABS: PTT 139.5 sec (22.9-36.1)
[2020-03-31 21:38] LABS: Anion Gap 15 mmol/L (10-20); BUN (Urea Nitrogen) 44 mg/dL (9.8-20.1); Calc. Creatinine Clearance 42 mL/min (70-130); Calcium 8.3 mg/dL (7.8-10.44); Carbon Dioxide 18 mmol/L (23-31); Chloride 107 mmol/L (98-107); Estimated GFR-MDRD 39; Glucose 148 mg/dL (83-110); Sodium 137 mmol/L (136-145)
[2020-03-31 21:40] LABS: Potassium 2.8 mmol/L (3.5-5.1)
[2020-03-31] MEDS: Potassium Chloride 40 MEQ in Premix Bag 1 BAG IVPB SCH (22:04)
[2020-03-31 23:56] LABS: Actual Bicarbonate (HCO3a) 15.5 mEq/L (22-28); Calcium, Ionized (arterial) 1.13 mmol/L (1.12-1.30); Carboxyhemoglobin (COHb) 0.2 gm% (0.0-3.0); O2 Tension (PaO2), arterial 101.7 mmHg (> 60.0); Potassium - ABG Lab 3.22 mmol/L (3.70-5.30); pH, Arterial 7.52 (7.35-7.45)
[2020-03-31 23:59] LABS: CO2 Tension 19.5 mmHg (35.0-45.0)
[2020-04-01] LABS: ALV-art Gradient 87.825 (0-20); Puncture Site ALINE
[2020-04-01] MEDS: Potassium Chloride 40 MEQ in Premix Bag 1 BAG IVPB SCH (00:05)
[2020-04-01] MEDS: Hydrocortisone Sod Succ/PF 100 mg/2 ml Vial IVP SCH (00:05)
[2020-04-01 00:10] LABS: Lactic Acid 5.2 mmol/L (0.5-2.2)
[2020-04-01] MEDS ORDERED: Sodium Chloride 0.9% 500 ML IV SCH (01:15)
[2020-04-01] MEDS ORDERED: Norepinephrine 8 MG/0.9% NS 250 ML IVPB SCH (01:32)
[2020-04-01 05:07] LABS: Lactic Acid 3.4 mmol/L (0.5-2.2)
[2020-04-01] MEDS: Piperacillin/Tazobactam 3.375 GM in Sodium Chloride 0.9% 100 ML IVPB SCH ×4 (05:12→22:13)
[2020-04-01 05:42] LABS: Hemoglobin 9.3 g/dL (12.0-16.0); Mean Corpuscular HGB CONC 33.9 g/dL (32.0-36.0); Mean Corpuscular Hemoglobin 29.6 pg (27.0-31.0); Mean Corpuscular Volume 87.4 fL (78.0-98.0); Mean Platelet Volume 11.6 fL (7.4-10.4); Platelet Count 55 thou/uL (130-400); RBC Distribution Width 12.4 % (11.5-14.5); Red Blood Cell (RBC) Count 3.15 mill/uL (4.20-5.40); White Blood Cell (WBC) Count 0.9 thou/uL (4.8-10.8)
[2020-04-01 06:06] LABS: ALT (SGPT) 14 U/L (8-55); AST (SGOT) 20 U/L (5-34); Albumin 2.9 g/dL (3.4-4.8); Alkaline Phosphatase 55 U/L (40-110); Anion Gap 15 mmol/L (10-20); BUN (Urea Nitrogen) 45 mg/dL (9.8-20.1); Bilirubin, Total 2.6 mg/dL (0.2-1.2); Calc. Creatinine Clearance 46 mL/min (70-130); Calcium 7.7 mg/dL (7.8-10.44); Carbon Dioxide 15 mmol/L (23-31); Chloride 109 mmol/L (98-107); Estimated GFR-MDRD 44; Globulin 1.4 g/dL (2.4-3.5); Glucose 133 mg/dL (83-110); Magnesium 2.1 mg/dL (1.6-2.6); Phosphorus 3.2 mg/dL (2.3-4.7); Potassium 4.2 mmol/L (3.5-5.1); Protein, Total 4.3 g/dL (6.0-8.3); Sodium 135 mmol/L (136-145)
[2020-04-01 06:24] LABS: Band 6 % (5-11); Lymphocytes 44 % (21-51); MDiff Complete? YES; Monocytes 24 % (0-10); Neutrophil 24 % (42-75); Platelet Morphology Comment Appears Decreased; Reactive Lymphocytes 2 % (0-10)
[2020-04-01 07:09] LABS: Actual Bicarbonate (HCO3a) 16.2 mEq/L (22-28); Calcium, Ionized (arterial) 1.08 mmol/L (1.12-1.30); Carboxyhemoglobin (COHb) 0.1 gm% (0.0-3.0); Hemoglobin (Hb) 8.5 g/dL (12.0-16.0); O2 Tension (PaO2), arterial 99.3 mmHg (> 60.0); Potassium - ABG Lab 3.86 mmol/L (3.70-5.30); pH, Arterial 7.49 (7.35-7.45)
[2020-04-01] MEDS: Pantoprazole 40 MG VIAL IVP SCH (08:07)
[2020-04-01] MEDS ORDERED: Calcium Chloride 13.6 MEQ in Sodium Chloride 0.9% 100 ML IVPB SCH (08:15)
[2020-04-01 08:17] LABS: CO2 Tension 21.9 mmHg (35.0-45.0)
[2020-04-01 08:18] LABS: Puncture Site ALINE
[2020-04-01 08:20] LABS: ALV-art Gradient 87.225 (0-20)
[2020-04-01] MEDS ORDERED: Prevnar 13-Val Conj/PF 0.5 ML SYRINGE IM ONE (09:00)
--- NOTE | 2020-04-01 09:10 | PDOC.FM ---
- Subjective Subjective: Patient intubated, has light sedation with some alertness (opens eyes when you start talking to her). Some moaning when replacing bedsheet over her abdomen. Has had approx. 1000 ML output from wound vac overnight. UOP average of 30 mL/ hr. Night RN attempted to stop Levophed overnight with BP systolic dropping to 70 and so was restarted, currently titrated Levophed up to 4 units. Night RN also reports that temp dropped to 95.5F with rectal temp of 93.8F overnight, has improved this morning. Insulin gtt stopped at approx. 0030 when sugar 89, but then next sugar 230 and so restarted drip around 0400 with insulin at 2.5 units/hr. Heparin gtt also currently running. - Objective MAR Reviewed: Yes Vital Signs & Weight: Vital Signs (12 hours) Temp Pulse Resp BP 04/01/20 08:00 98.2 F 24 H 04/01/20 07:03 99 105/39 L 04/01/20 06:00 24 H 04/01/20 04:00 98.2 F 24 H 04/01/20 02:00 24 H 04/01/20 01:00 97.1 F L 04/01/20 00:00 96.0 F L 24 H 03/31/20 22:00 93.8 F L 24 H Weight Weight 78 kg Most Recent Monitor Data Heart Rate from ECG 92 NIBP 104/56 NIBP BP-Mean 72 Respiration from ECG 24 SpO2 98 I&O: 03/31/20 04/01/20 04/02/20 06:59 06:59 06:59 Intake Total 5387.9 100 Output Total 2090 95 Balance 3297.9 5 Result Diagrams: 04/01/20 04:00 04/01/20 04:00 Phys Exam - Physical Examination intubated, light sedation HEENT: moist MMs Neck: supple Respiratory: clear to auscultation bilateral Cardiovascular: no significant murmur tachycardic wound vac in place over surgical site, significant TTP, hypoactive BS Musculoskeletal: no edema, pulses present light sedation, opens eyes to verbal stimulation Skin: no rash Dx/Plan (1) Large bowel perforation Code(s): K63.1 - PERFORATION OF INTESTINE (NONTRAUMATIC) Status: Acute (2) Ischemia, bowel Code(s): K55.9 - VASCULAR DISORDER OF INTESTINE, UNSPECIFIED Status: Acute (3) DKA (diabetic ketoacidoses) Code(s): E11.10 - TYPE 2 DIABETES MELLITUS WITH KETOACIDOSIS WITHOUT COMA Status: Acute Qualifiers: Diabetes mellitus type: type 2 Diabetes mellitus complication detail: without coma Qualified Code(s): E11.10 - Type 2 diabetes mellitus with ketoacidosis without coma (4) Hyponatremia Code(s): E87.1 - HYPO-OSMOLALITY AND HYPONATREMIA Status: Acute (5) Hyperkalemia Code(s): E87.5 - HYPERKALEMIA Status: Acute (6) IDDM (insulin dependent diabetes mellitus) Code(s): [id number] - Status: Acute (7) Pancreatic cancer Status: Acute Qualifiers: Pancreatic malignancy location: unspecified Qualified Code(s): C25.9 - Malignant neoplasm of pancreas, unspecified - Plan Plan: Patient is an 79 yo female who presents with N/V/D and SOB is admitted for suspected bowel perforation and DKA: DKA -admission glucose 729, Beta-hydroxybutyrate 4.42 -attempted off insulin drip around 0030 with sugars subsequently rising to 230-250, drip restarted at 2.5 units/hr -Beta hydroxybutyrate improved to 0.27 this AM -admission ABG: pH 7.19, pCO2 15, pO2 107.5, HCO3 7.4, base excess -20.5 -lactic acid 6.6 > 3.4 -admission to CCU, placed DKA protocol which ended around 0030 on 04/01 -glucose checks q1h Bowel Perforation, Ischemic Bowel -symptoms since 03/23, abdominal pain developed 03/29 -CT abd shows ischemic large bowel, free air suggestive of bowel perforation, left sided diverticulitis -Consult General Surgery-Dr. Vicente, appreciate recommendations -exploratory laparotomy on 03/31 with approx. 2 feet necrotic bowel removed -further surgery planned for 04/02 RENETTA -likely 2/2 above -admission BUN 58, Cr 2.21 -this AM BUN 45, Cr 1.18 -s/p 2L NS bolus in ED, continue IVF hydration Hyponatremia -admission Na 119, corrected to 126 -follow with serial BMPs Hyperkalemia -K 5.3 on admission, likely 2/2 DKA -monitor on serial BMPs Pancreatic Cancer -previously had whipple procedure -Consult Oncology, Dr. Gamble, appreciate recs -Dr. Gamble started Granix daily -hold off on any further chemotherapy Thrombocytopenia -Plt 92 on admission, per Dr. Duvalju does not need platelet transfusion prior to surgery -likely 2/2 chemo Neutropenia -likely 2/2 chemo -Neutropenic precautions placed -WBC 1.2 > 0.9 this AM Diet: NPO VTE: Heparin gtt Code status: FULL PCP: Joshua Tubes: ETT Lines: central line placed 03/31 Dispo: Guarded, admission to CCU. General surgery consulted, plan to take patient to OR again on 04/02, await further recommendations. Continue to monitor glucose checks. Anticipate discharge in >48 hrs. Addendum - Attending - Attending Attestation Date/Time: 04/01/20 9119 I personally evaluated the patient and discussed the management with Dr. Hawkins. I agree with the History, Examination, Assessment and Plan documented above with any addition or exceptions noted below. Patient continues to be critically ill. She is POD1 s/p ExLap with small bowel resection due to ischemic injury. She is no longer in DKA. She continues to have severe hypotension requiring Levophed, which is not helping with gut perfusion. MPOA updated. Monitor blood sugars and further mgmt per Surgery team.
--- NOTE | 2020-04-01 09:22 | CON ---
DATE OF CONSULTATION: 04/01/2020 HISTORY OF PRESENT ILLNESS: Ms. Miramontes is an 79-year-old female with a history of stage III pancreatic adenocarcinoma, which was recently resected via Whipple approximately 3 months prior to this admission. She was started on adjuvant chemotherapy 3 weeks ago with Xeloda and gemcitabine and presented to my office the day before the admission with complaints of 2 to 3 days of diarrhea as well as some cramping abdominal pain. She did ambulate into the office on that day and her vitals were stable. She was given IV fluids, but notably her sodium came back quite low that evening at 119. I called the patient that evening and instructed her to be admitted to the hospital that night or the next morning and she came to the emergency room the next morning around 8 a.m. On that presentation, she had had increasing abdominal pain that she had gotten much worse over the last 24 hours. She notably had ischemic colitis on CT scan with a perforation and was also in diabetic ketoacidosis with a lactic acidosis. She was taken to the operating room immediately and 2 feet of small bowel was found to be because of ischemia. This was resected and is now healing via secondary intention. She is currently on a ventilator, but is complaining of pain and is arousable. Notably, the chemotherapy that she is on has caused some pancytopenia as well as can cause diarrhea, which was thought to be the cause of this prior to the admission. PAST MEDICAL HISTORY: 1. Stage III pancreatic adenocarcinoma, currently in remission, receiving adjuvant chemotherapy with Xeloda and gemcitabine. 2. Diabetes mellitus, exacerbated by recent Whipple. 3. Hypertension. 4. Hypercholesterolemia. 5. Peripheral vascular disease. 6. Anxiety. 7. Sciatica. 8. Gastroesophageal reflux disease. PAST SURGICAL HISTORY: She has had a MARVIN-BSO as well as a tonsillectomy and the recent Whipple. CURRENT MEDICATIONS: 1. Fentanyl drip for pain and sedation. 2. Insulin drip. 3. Propofol drip. 4. Zosyn 3.375 g IV q.6 hours. 5. Protonix 40 mg IV daily. 6. Levophed drip, titrated for blood pressure. 7. Morphine IV p.r.n. 8. Granix 480 mcg subcu given yesterday. ALLERGIES: AZITHROMYCIN, CEDAR, SULFA. 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 She denies tobacco or alcohol use. REVIEW OF SYSTEMS: Unobtainable secondary to her being on the ventilator. Please see the history of present illness. PHYSICAL EXAMINATION: VITAL SIGNS: Current blood pressure 104/56, on Levophed, pulse 84, O2 saturation 100% on the ventilator, and respiratory rate 20 to 24. GENERAL: She is arousable and does answer when I ask if she has pain, to which she says yes. NECK: Supple without lymphadenopathy. CARDIOVASCULAR: Regular rhythm, somewhat tachy. LUNGS: Clear to auscultation anteriorly. ABDOMEN: Not examined due to it is dressed. EXTREMITIES: No edema. No cyanosis. LABORATORY DATA: White blood cell count 0.9, hemoglobin 9.3, platelets 55. INR 2.7, PTT greater than 250, but she is on heparin. Sodium 135, potassium 4.2, chloride 109, CO2 15, BUN 45, creatinine 1.1, glucose 133, calcium 7.7, phosphorus 3.2, total bilirubin 2.6, AST 20, ALT 14, total protein 4.3, albumin 2.9. CT of the abdomen and pelvis done on this admission showed portal venous gas with pneumatosis and bowel perforation, highly suspicious for ischemic bowel. ASSESSMENT: Ms. Miramontes is an 79-year-old female with: 1. History of stage III pancreatic cancer, currently on adjuvant chemotherapy with Xeloda and gemcitabine. 2. Acute bowel perforation secondary to ischemic colitis. 3. Hypertension and hypercholesterolemia. 4. Anxiety. 5. Leukopenia and thrombocytopenia secondary to chemotherapy as well as consumption. PLAN: 1. I have discussed the case with Dr. Vicente as well as the patient's primary care physician. The etiology of the ischemia is unclear and likely unrelated to chemotherapy. This has obviously been resected and we will have to see how she does over the next several days to see if she improves. Her kidney function is holding, which is a good sign. Her liver function tests are stable, although her bilirubin is slightly elevated. 2. I have initiated Granix daily, I suspect her white blood cell count will improve over the next few days. 3. We will watch her blood counts closely, she may need a platelet transfusion if she has to go back to the operating room tomorrow. 4. Obviously, she will not receive any further chemotherapy at this time, we will discuss this with her family. 5. We will follow peripherally and make sure that her blood counts do recover. Job ID: [id number]
[2020-04-01] MEDS ORDERED: Dextrose 5% in Water 1,000 ML IV PRN (09:23)
[2020-04-01] MEDS ORDERED: Dextrose 50% Abboject 50 ML SYRINGE SLOW IVP PRN (09:23)
[2020-04-01] MEDS ORDERED: Albumin 25% 25 GM/100 ML BOT IVPB SCH (09:25)
[2020-04-01] MEDS ORDERED: Sodium Bicarb 50 MEQ/50 ML Abboject 8.4% SYRINGE IVP SCH (09:25)
[2020-04-01] MEDS: Sodium Chloride 0.9% 1,000 ML IV SCH ×2 (10:17→14:35)
[2020-04-01 14:48] LABS: Lactic Acid 2.1 mmol/L (0.5-2.2)
[2020-04-01 14:54] LABS: ALT (SGPT) 17 U/L (8-55); AST (SGOT) 30 U/L (5-34); Albumin 3.1 g/dL (3.4-4.8); Alkaline Phosphatase 50 U/L (40-110); Anion Gap 15 mmol/L (10-20); BUN (Urea Nitrogen) 42 mg/dL (9.8-20.1); Bilirubin, Total 2.2 mg/dL (0.2-1.2); Calc. Creatinine Clearance 45 mL/min (70-130); Calcium 8.1 mg/dL (7.8-10.44); Carbon Dioxide 18 mmol/L (23-31); Chloride 110 mmol/L (98-107); Estimated GFR-MDRD 43; Globulin 1.1 g/dL (2.4-3.5); Glucose 199 mg/dL (83-110); Magnesium 2.1 mg/dL (1.6-2.6); Phosphorus 3.8 mg/dL (2.3-4.7); Potassium 4.6 mmol/L (3.5-5.1); Protein, Total 4.2 g/dL (6.0-8.3); Sodium 138 mmol/L (136-145)
--- NOTE | 2020-04-01 15:59 | PRG ---
DATE OF SERVICE: 04/01/2020 SUBJECTIVE: The patient is an 79-year-old woman, who is postoperative day #1, status post exploratory laparotomy, partial small-bowel resection with temporary abdominal closure. The surgery was for ischemic bowel necrosis. The patient was also noted to have DKA secondary to ischemic bowel necrosis. DKA has resolved. By this morning, she was only on 1 unit of insulin per hour. Blood glucose was in the 130s. She is sedated on fentanyl at 75 mcg/hour this morning. With that, she awakens to touch, moves all extremities, and follows commands. Urinary output is adequate for the patient's age and weight. OBJECTIVE: VITAL SIGNS: This morning included blood pressure 100/55, pulse is 97, respiratory rate 24, maximum temperature in the last 24 hours is 98.7 degrees Fahrenheit, oxygen saturation is 98% on FiO2 of 40%. HEENT: Pupils are equal, round, and reactive to light and accommodation. She has no jugular venous distention noted. HEART: Reveals regular rate and rhythm. No murmurs or gallops auscultated. LUNGS: Clear to auscultation bilaterally. Her breathing is regular and nonlabored. ABDOMEN: Soft and nondistended. Wound VAC is in place, returns large amount of serous fluid. NEUROLOGIC: Reveals no focal deficits present. LABORATORY FINDINGS: Today includes a CBC with 900 white blood cells, hemoglobin and hematocrit 9.3 and 27.5 respectively. Platelet count is 55,000. Arterial blood gas; pH 7.49, pCO2 of 22, PO2 of 99, base excess -6.0, ionized calcium 1.08. Metabolic profile; sodium is 135, potassium 4.2, chloride is 109, bicarb is 15, BUN is 45, creatinine is 1.18, glucose 133. Lactic acid is normal at 2.1, this is a significant improvement from a high 9.4 yesterday. AST and ALT remain normal at 20 and 14 respectively. IMPRESSION: 1. Postop day #1, status post exploratory laparotomy, partial bowel resection for ischemic bowel necrosis. There is no clinical evidence of ongoing ischemic insult. 2. Acute kidney injury, resolving. 3. Resolved diabetic ketoacidosis. 4. Acute hypocalcemia. 5. Acute blood loss anemia. 6. Acute neutropenia. 7. Acute thrombocytopenia. 8. Acute respiratory failure, stable. PLAN: 1. Continue with full mechanical ventilator support and begin ventilatory wean as tolerated. 2. We will wean vasopressor support off, monitor the patient's mean arterial pressure and end-organ perfusion as endpoint. 3. Correct abnormal electrolytes. 4. There is no clinical indication for blood transfusion at this time. 5. Continue with heparin infusion due to this patient's significant risk for further ischemic insult given diffuse atherosclerotic vascular disease. 6. The patient will return to the operating room tomorrow for second-look laparotomy and possible re-establishment of bowel continuity at that time. We will return to the operating room earlier if a physiologic derangement evolves. TIME SPENT: Total critical care time is 45 minutes. Job ID: [id number]
[2020-04-01] MEDS: HumaLOG 300 UNITS/3 ML VIAL SC PRN ×2 (16:11→20:16)
--- NOTE | 2020-04-01 16:59 | PDOC.PALPN ---
Palliative Progress Note - Subjective sedated, responds to stimulation. Mechanical ventilation, wound vac to abdomen. - Objective Vital Signs: Vital Signs - Most Recent Temp Pulse Resp BP Pulse Ox 98.5 F 102 H 12 112/36 L 96 04/01/20 16:00 04/01/20 14:19 04/01/20 16:00 04/01/20 14:19 04/01/20 08:00 - Physical Exam Constitutional: encephalitic, ill appearing HEENT: moist MMs Respiratory: no wheezing, unlabored breathing Deviation from normal: mechanical ventilation Cardiovascular: RRR Deviation from normal: wound vac to abdominal surgical wound site Genitourinary: plaza catheter Musculoskeletal: no cyanosis, no clubbing Neurology: no focal deficits Skin: cap refill <2 seconds, normal turgor Deviation from normal: sedated - Assessment (1) Palliative care encounter Code(s): Z51.5 - ENCOUNTER FOR PALLIATIVE CARE Current Visit: Yes Status: Acute (2) DKA (diabetic ketoacidoses) Code(s): E11.10 - TYPE 2 DIABETES MELLITUS WITH KETOACIDOSIS WITHOUT COMA Current Visit: Yes Status: Acute Qualifiers: Diabetes mellitus type: type 2 Diabetes mellitus complication detail: without coma Qualified Code(s): E11.10 - Type 2 diabetes mellitus with ketoacidosis without coma (3) IDDM (insulin dependent diabetes mellitus) Code(s): [id number] - Current Visit: Yes Status: Acute (4) Ischemia, bowel Code(s): K55.9 - VASCULAR DISORDER OF INTESTINE, UNSPECIFIED Current Visit: Yes Status: Acute (5) Large bowel perforation Code(s): K63.1 - PERFORATION OF INTESTINE (NONTRAUMATIC) Current Visit: Yes Status: Acute - Plan Plan: Palliative coordinated family meeting with Sisters, Dr Vicente, Dr Hawkins, Jordon Hollis PA, Father Gerald. Overview of presentation, surgery, current status, and plan for repair of bowel. Questions answered. Emotional Support, Therapeutic Listening. Will ensure blue tooth speaker placed in room to facilitate communication to patient from supportive friends and family. [40] minutes spent on this encounter with >50% of the time in counseling and coordination of care. - ROS Non Response: due to endotracheal tube, due to mental status
[2020-04-01 18:04] LABS: PTT 204.3 sec (22.9-36.1)
[2020-04-02] MEDS: HumaLOG 300 UNITS/3 ML VIAL SC PRN ×5 (00:22→20:45)
[2020-04-02] MEDS: Piperacillin/Tazobactam 3.375 GM in Sodium Chloride 0.9% 100 ML IVPB SCH ×4 (04:07→22:27)
[2020-04-02] MEDS: Sodium Chloride 0.9% 1,000 ML IV SCH ×2 (04:09→15:53)
[2020-04-02 05:19] LABS: Phosphorus 3.3 mg/dL (2.3-4.7)
[2020-04-02 05:23] LABS: ALT (SGPT) 18 U/L (8-55); AST (SGOT) 28 U/L (5-34); Albumin 2.8 g/dL (3.4-4.8); Alkaline Phosphatase 57 U/L (40-110); Anion Gap 12 mmol/L (10-20); BUN (Urea Nitrogen) 46 mg/dL (9.8-20.1); Bilirubin, Total 1.4 mg/dL (0.2-1.2); Calc. Creatinine Clearance 45 mL/min (70-130); Calcium 7.3 mg/dL (7.8-10.44); Carbon Dioxide 20 mmol/L (23-31); Chloride 111 mmol/L (98-107); Estimated GFR-MDRD 43; Globulin 1.3 g/dL (2.4-3.5); Glucose 232 mg/dL (83-110); Magnesium 2.2 mg/dL (1.6-2.6); Protein, Total 4.1 g/dL (6.0-8.3); Sodium 139 mmol/L (136-145)
[2020-04-02 05:28] LABS: Band 22 % (5-11); Hemoglobin 8.6 g/dL (12.0-16.0); Hypochromia SLIGHT = 6-15 cells (100X) (0-5/hpf); Lymphocytes 44 % (21-51); MDiff Complete? YES; Mean Corpuscular HGB CONC 32.6 g/dL (32.0-36.0); Mean Corpuscular Volume 89.1 fL (78.0-98.0); Mean Platelet Volume 11.7 fL (7.4-10.4); Metamyelocyte 4 % (0-0); Monocytes 14 % (0-10); Neutrophil 16 % (42-75); Platelet Count 45 thou/uL (130-400); Platelet Morphology Comment Appears Decreased; RBC Distribution Width 12.5 % (11.5-14.5); Red Blood Cell (RBC) Count 2.96 mill/uL (4.20-5.40); White Blood Cell (WBC) Count 1.3 thou/uL (4.8-10.8)
[2020-04-02] MEDS: Pantoprazole 40 MG VIAL IVP SCH (08:41)
[2020-04-02] MEDS ORDERED: Furosemide 40 MG/4 ML VIAL ONE (08:44)
--- NOTE | 2020-04-02 08:48 | PDOC.FM ---
- Subjective Subjective: Patient intubated, has light sedation with precedex and has some alertness upon stimulation. Has had approx. 500 ML output from wound vac overnight. UOP average of 35 mL/hr. Levophed drip stopped around 1600 yesterday. BP systolic holding around 90. Insulin gtt stopped yesterday morning and transitioned to Humalog sliding scale. Heparin gtt stopped at around 0345 this morning in preparation for surgery. Patient's night RN reports patient with significant/ severe abdominal pain overnight. 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 Additionally some nuns in [place] available by phone. Met with surgeon Dr. Vicente & his team, Palliative Care team, Father Gerald , and myself. Dr. Vicente provided care plan in detail with all those present. - Objective MAR Reviewed: Yes Vital Signs & Weight: Vital Signs (12 hours) Temp Pulse Resp BP 04/02/20 07:16 76 04/02/20 06:00 17 04/02/20 04:00 98.6 F 22 H 04/02/20 02:15 86 124/66 04/02/20 02:00 17 04/02/20 00:36 87 109/49 L 04/02/20 00:00 98.0 F 15 04/01/20 22:00 15 04/01/20 21:56 113 H 110/54 L Weight Admit Weight 78 kg Weight 78 kg Most Recent Monitor Data Heart Rate from ECG 79 NIBP 90/49 NIBP BP-Mean 62 Respiration from ECG 18 SpO2 96 I&O: 04/01/20 04/02/20 04/03/20 06:59 06:59 06:59 Intake Total 5387.9 3158.3 Output Total 2090 977 Balance 3297.9 2181.3 Result Diagrams: 04/02/20 04:10 04/02/20 04:10 Phys Exam - Physical Examination Constitutional: NAD HEENT: moist MMs Neck: no JVD, supple Respiratory: no wheezing ventilated breath sounds throughout Cardiovascular: RRR, no significant murmur grossly TTP Musculoskeletal: no edema, pulses present Deviation from normal: sedated but arousable Skin: no rash, normal turgor Dx/Plan (1) Large bowel perforation Code(s): K63.1 - PERFORATION OF INTESTINE (NONTRAUMATIC) Status: Acute (2) Ischemia, bowel Code(s): K55.9 - VASCULAR DISORDER OF INTESTINE, UNSPECIFIED Status: Acute (3) DKA (diabetic ketoacidoses) Code(s): E11.10 - TYPE 2 DIABETES MELLITUS WITH KETOACIDOSIS WITHOUT COMA Status: Acute Qualifiers: Diabetes mellitus type: type 2 Diabetes mellitus complication detail: without coma Qualified Code(s): E11.10 - Type 2 diabetes mellitus with ketoacidosis without coma (4) Hyponatremia Code(s): E87.1 - HYPO-OSMOLALITY AND HYPONATREMIA Status: Acute (5) Hyperkalemia Code(s): E87.5 - HYPERKALEMIA Status: Acute (6) IDDM (insulin dependent diabetes mellitus) Code(s): [id number] - Status: Acute (7) Pancreatic cancer Status: Acute Qualifiers: Pancreatic malignancy location: unspecified Qualified Code(s): C25.9 - Malignant neoplasm of pancreas, unspecified - Plan Plan: Patient is an 79 yo female who presents with N/V/D and SOB is admitted for suspected bowel perforation and DKA: DKA, resolved -admission glucose 729, Beta-hydroxybutyrate 4.42 -insulin drip stopped at 0900 on 04/01, started SC Humalog SSI moderate scale -Beta hydroxybutyrate improved to 0.27 on 04/01 -admission ABG: pH 7.19, pCO2 15, pO2 107.5, HCO3 7.4, base excess -20.5 -lactic acid 6.6 > 3.4 -admission to CCU, placed DKA protocol which ended around 0030 on 04/01 -glucose checks q4h Bowel Perforation, Ischemic Bowel -symptoms since 03/23, abdominal pain developed 03/29 -CT abd shows ischemic large bowel, free air suggestive of bowel perforation, left sided diverticulitis -Consult General Surgery-Dr. Vicente, appreciate recommendations -exploratory laparotomy on 03/31 with approx. 2 feet necrotic bowel removed -further surgery planned for this morning, will also anticipate another surgery on Thursday 04/05 pending results from today RENETTA -likely 2/2 above -admission BUN 58, Cr 2.21 -this AM BUN 46, Cr 1.20 -s/p 2L NS bolus in ED, continue IVF hydration Hyponatremia -admission Na 119, corrected to 126 -follow with serial BMPs Hyperkalemia -K 5.3 on admission, likely 2/2 DKA -monitor on serial BMPs Pancreatic Cancer -previously had whipple procedure -Consult Oncology, Dr. Gamble, appreciate recs -Dr. Gamble started Granix daily -hold off on any further chemotherapy Thrombocytopenia -Plt 92 on admission, was down to 45 this AM -likely 2/2 chemo Neutropenia -likely 2/2 chemo -Neutropenic precautions placed -WBC 1.2 > 0.9 > 1.3 this AM Social: Palliative Care team consulted to discuss goals of care. Sister Sameera is MPOA for patient, presents with advanced directive documents signed by patient. Family meeting held 04/01 with all patient's provider team in attendance, discussed plan of care moving forward. Sister Sameera requests frequent updates. Diet: NPO VTE: Heparin gtt (currently held for surgery) Code status: FULL PCP: Joshua MPOA: "Sister Sameera", cell [phone] Tubes: ETT Lines: central line placed 03/31 Dispo: Guarded, admission to CCU. General surgery consulted, plan to take patient to OR again this morning, await further recommendations. Continue to monitor glucose checks. Anticipate discharge in >48 hrs. Addendum - Attending - Attending Attestation Date/Time: 04/02/20 1130 I personally evaluated the patient and discussed the management with Dr. Hawkins. I agree with the History, Examination, Assessment and Plan documented above with any addition or exceptions noted below. Patient overall stable. Off Levophed and off insulin drip. BS a little high but covering currently with SSI. Back to OR today and further mgmt pending that procedure.
[2020-04-02] MEDS ORDERED: Furosemide 40 MG/4 ML VIAL SLOW IVP SCH (09:00)
[2020-04-02] MEDS ORDERED: Fentanyl 100 MCG/2 ML VIAL ONE (09:33)
[2020-04-02] MEDS ORDERED: Insulin Glargine 10 UNITS in Pre-Filled Syringe 1 EACH SC SCH (10:00)
--- NOTE | 2020-04-02 10:05 | PRG ---
DATE OF SERVICE: 04/02/2020 SUBJECTIVE: Ms. Miramontes is an 79-year-old woman, postop day #2 status post exploratory laparotomy, partial small bowel resection for ischemic bowel necrosis. The patient is awake and alert on mechanical ventilator support. She is on no vasopressor or inotropic support. Urinary output is adequate for the patient's age and weight. OBJECTIVE: VITAL SIGNS: This morning include blood pressure 104/56, pulse is 79, respiratory rate is 17, maximum temperature in last 24 hours is 98.7 degrees Fahrenheit, and oxygen saturation is 100% on FiO2 of 30%. HEENT: Bilateral scleral edema. NECK: She has no jugular venous distention noted. HEART: Regular rate and rhythm. No murmurs or gallops auscultated. LUNGS: Clear to auscultation bilaterally. Her breathing is regular and nonlabored. ABDOMEN: Soft, moderately distended. Wound VAC is in place, returns moderate amount of serous fluid. SKIN: She has generalized anasarca. NEUROLOGIC: No focal deficits present. LABORATORY FINDINGS: Today include a CBC with 1300 white blood cells, hemoglobin and hematocrit stable at 8.6 and 26.3 respectively. Platelet count is 45,000. Metabolic profile; sodium is 139, potassium is 4.0, chloride is 111, bicarb is 20, BUN is 46, creatinine is 1.20, glucose is 232, calcium is 7.3, and magnesium is 2.2. Total bilirubin is 1.4, AST and ALT are 28 and 18 respectively. Serum cortisol level is 39.30. Lactic acid is 2.0. IMPRESSION: 1. Ischemic bowel necrosis, postop day #2 status post exploratory laparotomy and partial bowel resection. 2. Resolved acute kidney injury. 3. Acute hyperglycemia. 4. Acute blood loss anemia, stable. 5. Acute respiratory failure, improving. 6. Acute septic shock, resolved. 7. Resolved diabetic ketoacidosis. PLAN: 1. Return to the operating room today for second-look laparotomy and possible re-establish bowel continuity. 2. Continue with mechanical ventilator support until the patient is stable postoperatively. 3. The patient will be given some diuretics this morning and monitor urinary output as endpoint. Total critical care time : 35 minutes Job ID: [id number] MTDD
[2020-04-02] MEDS ORDERED: PHENYLEPHRINE-NS 100 MCG/ML 10 ML SYRINGE ONE ×2 (11:07→11:59)
[2020-04-02] MEDS ORDERED: Glycopyrrolate 0.2 MG/ML 5 ML SYRINGE ONE (11:59)
[2020-04-02] MEDS ORDERED: EPHEDRINE 25 MG/5 ML SYRINGE ONE (11:59)
[2020-04-02] MEDS ORDERED: Esmolol 100 MG/10 ML VIAL ONE (11:59)
--- NOTE | 2020-04-02 12:41 | RAD ---
Chest AP view INDICATION: Respiratory failure and aspiration COMPARISON: March 31, 2020 FINDINGS: Lungs: There is new airspace opacity within the posterior medial right lower lobe which can be seen with aspiration pneumonitis. Superimposed on chronic lung changes. Cardiac silhouette: The cardiomediastinal silhouette appears within normal limits. Pulmonary vasculature: Normal Pleural spaces: There are tiny bilateral pleural effusions Upper abdomen: There is a feeding tube and gastric catheter in place. The feeding tube projects in t he region of the jejunum. Gastric catheter projects in the region of the gastric body. Osseous structures: No acute osseous abnormality. Additional findings: Patient is intubated with the ET tube tip seen at the thoracic inlet. IMPRESSION: Right lower lobe airspace opacities suspicious for aspiration pneumonitis.. Interval intubation, gastric catheter and feeding tube placement. Small bilateral pleural effusions are new
--- NOTE | 2020-04-02 12:44 | RAD ---
KUB INDICATION: Feeding tube COMPARISON: None FINDINGS: Bowel gas: Nonspecific. There is gaseous distention of loops of small and large bowel without overt e vidence of obstruction. Lung bases: Not well seen Additional findings: There is a Dobbhoff feeding tube tip projecting in the region of the jejunum. Ga stric catheter projects in the region of the gastric body. Osseous structures: No acute osseous abnormality is demonstrated. IMPRESSION: 1. . ET tube and gastric catheter as above.
[2020-04-02 13:41] LABS: Hemoglobin 10.4 g/dL (12.0-16.0); Platelet Count 40 thou/uL (130-400)
--- NOTE | 2020-04-02 14:32 | PDOC.MOPN ---
Interval History: remains sedated on vent. - Vital Signs Vital Signs: Vital Signs (12 hours) Temp Pulse Resp Pulse Ox 04/02/20 14:17 107 H 04/02/20 12:00 98.9 F 21 H 04/02/20 10:00 20 04/02/20 08:00 97.4 F L 21 H 97 04/02/20 07:16 76 04/02/20 06:00 17 04/02/20 04:00 98.6 F 22 H Weight Admit Weight 171 lb 15.369 oz Weight 171 lb 15.369 oz Most Recent Monitor Data Heart Rate from ECG 85 NIBP 110/57 NIBP BP-Mean 74 Respiration from ECG 20 SpO2 97 - Physical Exam General: No acute distress Lungs: Clear to auscultation, Normal air movement Cardiovascular: Regular rate, Normal S1, Normal S2, No murmurs, Gallops, Rubs Abdomen: Other Neurological: Other - Labs Result Diagrams: 04/02/20 13:31 04/02/20 04:10 Lab results: Laboratory Results - last 24 hr 04/02/20 13:31: Hgb 10.4 L, Hct 31.0 L, Plt Count 40 L 04/02/20 08:52: POC Glucose 212 H 04/02/20 08:23: Cortisol 39.30 04/02/20 08:22: Lactic Acid 2.0 04/02/20 04:21: POC Glucose 230 H 04/02/20 04:10: Phosphorus 3.3 04/02/20 04:10: Sodium 139, Potassium 4.0, Chloride 111 H, Carbon Dioxide 20 L, Anion Gap 12, BUN 46 H, Creatinine 1.20 H, Estimated GFR (MDRD) 43, Glucose 232 H, Calcium 7.3 L, Magnesium 2.2, Total Bilirubin 1.4 H, AST 28, ALT 18, Alkaline Phosphatase 57, Serum Total Protein 4.1 L, Albumin 2.8 L, Globulin 1.3 L, Albumin/Globulin Ratio 2.2 04/02/20 04:10: WBC 1.3 L, RBC 2.96 L, Hgb 8.6 L, Hct 26.3 L, MCV 89.1, MCH 29.0 , MCHC 32.6, RDW 12.5, Plt Count 45 L, MPV 11.7 H, Neutrophils % (Manual) 16 L, Band Neuts % (Manual) 22 H, Lymphocytes % (Manual) 44, Monocytes % (Manual) 14 H , Metamyelocytes % (Man) 4 H, Hypochromia SLIGHT = 6-15 cells, Plt Morphology Comment Appears Decreased L 04/02/20 01:43: APTT 108.2 H 04/02/20 00:17: POC Glucose 240 H 04/01/20 20:19: POC Glucose 240 H 04/01/20 20:01: APTT 69.4 H 04/01/20 17:37: APTT 204.3 H* 04/01/20 16:14: POC Glucose 222 H 04/01/20 14:09: Sodium 138, Potassium 4.6, Chloride 110 H, Carbon Dioxide 18 L, Anion Gap 15, BUN 42 H, Creatinine 1.20 H, Estimated GFR (MDRD) 43, Glucose 199 H, Calcium 8.1, Phosphorus 3.8, Magnesium 2.1, Total Bilirubin 2.2 H, AST 30, ALT 17, Alkaline Phosphatase 50, Serum Total Protein 4.2 L, Albumin 3.1 L, Globulin 1.1 L, Albumin/Globulin Ratio 2.8 H 04/01/20 14:09: Lactic Acid 2.1 04/01/20 12:10: POC Glucose 149 H 04/01/20 06:04: POC Glucose 136 H 04/01/20 05:24: POC Glucose 131 H 04/01/20 04:03: POC Glucose 135 H 04/01/20 03:19: POC Glucose 106 04/01/20 02:21: POC Glucose 97 Status: lab reviewed by me A/P - Problem (1) Large bowel perforation Current Visit: Yes Code(s): K63.1 - PERFORATION OF INTESTINE (NONTRAUMATIC) Status: Acute (2) Pancreatic cancer Current Visit: Yes Status: Acute Qualifiers: Pancreatic malignancy location: unspecified Qualified Code(s): C25.9 - Malignant neoplasm of pancreas, unspecified - Plan Plan: 1. Continue granix daily 2. monitor CBC, transfuse prn. 3. supportive care
[2020-04-02 17:19] LABS: ALV-art Gradient 180.175 (0-20); Actual Bicarbonate (HCO3a) 15.1 mEq/L (22-28); Base Excess (BEa) -8.3 mEq/L (-2.0 to +3.0); CO2 Tension 24.5 mmHg (35.0-45.0); Calcium, Ionized (arterial) 1.06 mmol/L (1.12-1.30); Carboxyhemoglobin (COHb) 0.2 gm% (0.0-3.0); Hemoglobin (Hb) 9.7 g/dL (12.0-16.0); O2 Tension (PaO2), arterial 74.4 mmHg (> 60.0); Potassium - ABG Lab 3.21 mmol/L (3.70-5.30); Puncture Site RRA; pH, Arterial 7.41 (7.35-7.45)
--- NOTE | 2020-04-02 17:36 | OP ---
DATE OF PROCEDURE: 04/02/2020 PREOPERATIVE DIAGNOSIS: Ischemic bowel necrosis, status post previous laparotomy with partial small-bowel resection. POSTOPERATIVE DIAGNOSES: 1. Ischemic bowel necrosis, status post previous laparotomy with partial small-bowel resection. 2. Ischemic necrosis of small segment anterior wall, small-bowel. PROCEDURES PERFORMED: 1. Second-look exploratory laparotomy. 2. Excision of ischemic small-bowel wall with primary enterorrhaphy. 3. Primary jejunojejunostomy. 4. Placement of feeding nasojejunal tube. 5. Abdominal washout and closure. ANESTHESIA: General endotracheal. ESTIMATED BLOOD LOSS: 25 mL. FLUIDS GIVEN: 700 mL crystalloid. COUNTS: Sponge and instrument counts were verified as correct x2. COMPLICATIONS: None apparent. INDICATIONS FOR PROCEDURE: An 79-year-old woman who 48 hours ago underwent exploratory laparotomy and partial resection for ischemic bowel necrosis. She was returned to operating room today for second-look. Findings are consistent with viable staple ends of the small bowel. There is also ischemic necrotic anterior wall of the small bowel approximately 20 cm from the most distal staple line. DESCRIPTION OF PROCEDURE: Informed consent was obtained from the patient's power of defense attorney. The patient was brought to the operating room and placed in supine position. Following general anesthesia, previous Saldana catheter was placed to bedside drain. Nasogastric tube placed to wall suction. External wound VAC dressing was removed, and abdomen was sterilely prepped and draped in usual fashion. The internal wound VAC dressings were then removed. Peritoneal cavity was entered and explored in all 4 quadrants. The previous staple lines were noted intact and viable. There is a segment of bowel with a small anterior wall necrosis approximately 20 cm from the most distal staple line. This was wedged out and the bowel was closed primarily using interrupted sutures of 3-0 silk vertically and imbricated with a second row of interrupted sutures of 3-0 silk. The abdominal cavity was then copiously irrigated clear with saline solution. The previous staple ends of the jejunum were approximated in a [id number] fashion using interrupted sutures of 3-0 silk. Enterotomies were made at both apices, through which free ends of WALTER stapler was introduced and a functional end-to-end, but anatomic [id number] jejunojejunostomy was perfected. Common enterotomy was closed using a reload of WALTER stapler. Resultant mesenteric defect was closed using a running stitch of 2-0 Vicryl. Again, the abdominal cavity was irrigated in all 4 quadrants. A large piece of Seprafilm was placed in the deep pelvis prior to returning small bowel to normal anatomic location. A second piece of Seprafilm was placed over this and omentum was drawn over remainder of the viscera. At this juncture, a feeding nasojejunal tube was inserted by Anesthesia, the tip of which was palpated by myself within the gastric lumen. I manipulated tip of this catheter into proximal small bowel without resistance. Finding no other pathology, exploration was terminated. All sponges and instruments were removed and accounted for. Fascia was approximated in midline using a running stitch of #1 single stranded PDS. Subcutaneous tissues were pulse lavaged with 5 L of sterile saline. I decided to temporary close the skin using wound VAC. Wound VAC sponge was placed over the fascia. External wound VAC dressing was drawn over this and connected to vacuum assisted device with good suction. The patient tolerated the operation without any apparent complication and returned to the intensive care unit in stable condition. Job ID: [id number]
[2020-04-02] MEDS ORDERED: Calcium Chloride 1 GM/10 ML Abboject SYRINGE ONE ×2 (17:42)
[2020-04-02] MEDS ORDERED: Sodium Bicarb 50 MEQ/50 ML Abboject 8.4% SYRINGE ONE (17:42)
[2020-04-02 17:46] LABS: Hemoglobin 9.6 g/dL (12.0-16.0); Mean Corpuscular Hemoglobin 30.3 pg (27.0-31.0); Mean Corpuscular Volume 89.2 fL (78.0-98.0); RBC Distribution Width 12.7 % (11.5-14.5); Red Blood Cell (RBC) Count 3.18 mill/uL (4.20-5.40)
[2020-04-02] MEDS ORDERED: Sodium Bicarb 50 MEQ/50 ML Abboject 8.4% SYRINGE IVP SCH (18:00)
[2020-04-02] MEDS ORDERED: Calcium Chloride 1 GM/10 ML Abboject SYRINGE IVP SCH (18:00)
[2020-04-02] MEDS ORDERED: Potassium Chloride 40 MEQ in Premix Bag 1 BAG IVPB SCH (18:00)
[2020-04-02 18:06] LABS: Anion Gap 13 mmol/L (10-20); BUN (Urea Nitrogen) 47 mg/dL (9.8-20.1); Calc. Creatinine Clearance 41 mL/min (70-130); Carbon Dioxide 18 mmol/L (23-31); Chloride 113 mmol/L (98-107); Estimated GFR-MDRD 39; Glucose 218 mg/dL (83-110); Magnesium 1.8 mg/dL (1.6-2.6); Phosphorus 2.9 mg/dL (2.3-4.7); Potassium 3.2 mmol/L (3.5-5.1); Sodium 141 mmol/L (136-145)
[2020-04-02 18:07] LABS: Troponin I 0.023 ng/mL (< 0.028)
[2020-04-02 18:09] LABS: Band 18 % (5-11); Burr Cells SLIGHT = 2-5 cells (100X) (0-1/hpf); Eosinophils 2 % (0-10); Large Platelets SLIGHT; Lymphocytes 30 % (21-51); MDiff Complete? YES; Mean Platelet Volume 13.2 fL (7.4-10.4); Metamyelocyte 14 % (0-0); Monocytes 20 % (0-10); Myelocyte 4 % (0-0); Neutrophil 8 % (42-75); Ovalocytes SLIGHT = 2-5 cells (100X) (0-1/hpf); Platelet Count 34 thou/uL (130-400); Platelet Morphology Comment Appears Decreased; Polychromasia SLIGHT = 2-3 cells (100X) (0-2/hpf); Reactive Lymphocytes 4 % (0-10)
[2020-04-02] MEDS ORDERED: Magnesium 2 GM/50 ML 2 GM in Premix Bag 1 BAG IVPB SCH (19:00)
[2020-04-03] MEDS: fentaNYL Citrate/PF 2,000 MCG in Sodium Chloride 0.9% 60 ML IV SCH (00:05)
[2020-04-03] MEDS ORDERED: Furosemide 20 MG/2 ML VIAL SLOW IVP SCH (02:15)
[2020-04-03] MEDS ORDERED: Metoprolol Tartrate 5 MG/5 ML VIAL IVP SCH (02:15)
[2020-04-03 02:18] LABS: Prothrombin Time 22.9 sec (12.0-14.7)
[2020-04-03] MEDS: Heparin 10,000 UNITS/ 10 ML VIAL SLOW IVP SCH (03:07)
[2020-04-03 03:14] LABS: Phosphorus 3.9 mg/dL (2.3-4.7)
[2020-04-03 03:15] LABS: ALT (SGPT) 15 U/L (8-55); AST (SGOT) 16 U/L (5-34); Albumin 2.8 g/dL (3.4-4.8); Alkaline Phosphatase 54 U/L (40-110); Anion Gap 15 mmol/L (10-20); BUN (Urea Nitrogen) 45 mg/dL (9.8-20.1); Bilirubin, Total 1.3 mg/dL (0.2-1.2); Calc. Creatinine Clearance 38 mL/min (70-130); Calcium 7.5 mg/dL (7.8-10.44); Carbon Dioxide 18 mmol/L (23-31); Chloride 116 mmol/L (98-107); Estimated GFR-MDRD 36; Globulin 1.4 g/dL (2.4-3.5); Glucose 158 mg/dL (83-110); Magnesium 2.2 mg/dL (1.6-2.6); Potassium 3.2 mmol/L (3.5-5.1); Protein, Total 4.2 g/dL (6.0-8.3); Sodium 146 mmol/L (136-145)
[2020-04-03] MEDS: Heparin 25,000 units/D5W 500 ML IVPB SCH (03:15)
[2020-04-03 03:29] LABS: Band 20 % (5-11); Hemoglobin 8.5 g/dL (12.0-16.0); Lymphocytes 30 % (21-51); MDiff Complete? YES; Mean Corpuscular HGB CONC 32.6 g/dL (32.0-36.0); Mean Corpuscular Hemoglobin 29.2 pg (27.0-31.0); Mean Corpuscular Volume 89.3 fL (78.0-98.0); Mean Platelet Volume 13.7 fL (7.4-10.4); Metamyelocyte 22 % (0-0); Monocytes 10 % (0-10); Myelocyte 8 % (0-0); Neutrophil 10 % (42-75); Platelet Count 32 thou/uL (130-400); Platelet Morphology Comment Appears Decreased; RBC Distribution Width 12.6 % (11.5-14.5); Red Blood Cell (RBC) Count 2.93 mill/uL (4.20-5.40); White Blood Cell (WBC) Count 1.1 thou/uL (4.8-10.8)
[2020-04-03] MEDS: Sodium Chloride 0.9% 1,000 ML IV SCH (03:29)
[2020-04-03] MEDS ORDERED: Potassium Chloride 40 MEQ in Premix Bag 1 BAG IVPB SCH (04:45)
[2020-04-03] MEDS: Piperacillin/Tazobactam 3.375 GM in Sodium Chloride 0.9% 100 ML IVPB SCH ×4 (05:05→23:37)
--- NOTE | 2020-04-03 06:51 | PDOC.FM ---
- Subjective Subjective: Pt intubated, appears to be in no distress. She follows commands. - Objective Vital Signs & Weight: Vital Signs (12 hours) Temp Pulse Resp Pulse Ox 04/03/20 06:00 25 H 04/03/20 04:00 98.5 F 04/03/20 02:37 83 04/03/20 02:00 18 04/03/20 00:26 97 18 97 04/03/20 00:25 101 H 04/03/20 00:00 98.6 F 18 04/02/20 22:09 93 04/02/20 22:00 18 04/02/20 20:00 99.1 F 20 98 04/02/20 19:31 126 H 27 H 97 Weight Admit Weight 78 kg Weight 83 kg Most Recent Monitor Data Heart Rate from ECG 116 NIBP 109/45 NIBP BP-Mean 66 Respiration from ECG 23 SpO2 97 I&O: 04/01/20 04/02/20 04/03/20 06:59 06:59 06:59 Intake Total 5387.9 3158.3 4070.0 Output Total 2090 977 3015 Balance 3297.9 2181.3 1055.0 Result Diagrams: 04/03/20 09:14 04/03/20 02:19 Phys Exam - Physical Examination Constitutional: NAD HEENT: sclera anicteric, TM's clear Neck: no JVD, supple Respiratory: no wheezing, clear to auscultation bilateral Cardiovascular: no significant murmur, irregular tachy Gastrointestinal: soft, non-tender Musculoskeletal: pulses present Neurological: moves all 4 limbs intubated Psychiatric: normal affect Deviation from normal: intubated Skin: no rash, normal turgor Dx/Plan (1) Ischemia, bowel Code(s): K55.9 - VASCULAR DISORDER OF INTESTINE, UNSPECIFIED Status: Acute (2) DKA (diabetic ketoacidoses) Code(s): E11.10 - TYPE 2 DIABETES MELLITUS WITH KETOACIDOSIS WITHOUT COMA Status: Acute Qualifiers: Diabetes mellitus type: type 2 Diabetes mellitus complication detail: without coma Qualified Code(s): E11.10 - Type 2 diabetes mellitus with ketoacidosis without coma (3) Hyperkalemia Code(s): E87.5 - HYPERKALEMIA Status: Acute (4) Hyponatremia Code(s): E87.1 - HYPO-OSMOLALITY AND HYPONATREMIA Status: Acute (5) IDDM (insulin dependent diabetes mellitus) Code(s): GWX8748 - Status: Acute (6) Large bowel perforation Code(s): K63.1 - PERFORATION OF INTESTINE (NONTRAUMATIC) Status: Acute (7) Palliative care encounter Code(s): Z51.5 - ENCOUNTER FOR PALLIATIVE CARE Status: Acute (8) Pancreatic cancer Status: Acute Qualifiers: Pancreatic malignancy location: unspecified Qualified Code(s): C25.9 - Malignant neoplasm of pancreas, unspecified - Plan Plan: Patient is an 79 yo female who presents with N/V/D and SOB is admitted for suspected bowel perforation and DKA: Afib with RVR A- pt is hemodynamically stable and starting on amiodarone drip this AM per surgery team P- amiodrip -anticoagulation per surgery team considering recent surgeries -will consider cardiology consult Bowel Perforation, Ischemic Bowel A- s/p two laprotomies on 03/31 and 04/03 with approx. 2 feet necrotic bowel removed jejunostomy. Pt seems to be doing well though still intubated. CT abd shows ischemic large bowel, free air suggestive of bowel perforation, left sided diverticulitis. Consult General Surgery-Dr. Vicente, appreciate recommendations P- mgmt and diet per surgery RENETTA A- likely 2/2 above. initial improvement, admission BUN 58, Cr 2.21. May be slightly volume down P- monitor Cr and I/Os, consider IVF Neutropenia and Thrombocytopenia 2/2 chemo/Pancreatic Cancer A- previously had whipple procedure P- Consult Oncology, Dr. Gamble, appreciate recs. Dr. Gamble started Granix daily. hold off on any further chemotherapy Hyponatremia -resolved Hyperkalemia -resolved, now hypokalemic will monitor electrolytes and replace as needed DKA, resolved -resolved Social: Palliative Care team consulted to discuss goals of care. Sister Sameera is MPOA for patient, presents with advanced directive documents signed by patient. Family meeting held 04/01 with all patient's provider team in attendance, discussed plan of care moving forward. Sister Sameera requests frequent updates. Diet: NPO VTE: Heparin Code status: FULL PCP: Joshua MPOA: "Sister Sameera", cell [phone] Tubes: ETT Lines: central line placed 03/31 Dispo: Guarded Addendum - Attending - Attending Attestation Date/Time: 04/03/20 [id number] I personally evaluated the patient and discussed the management with Dr. Houser. I agree with the History, Examination, Assessment and Plan documented above with any addition or exceptions noted below. Patient overall stable. Having some hypernatremia with tube feed initiation, recommend increasing free water flushes. Her blood sugars are overall stable on current regimen. General surgery is managing the rest of her active issues.
[2020-04-03] MEDS: Amiodarone 450 MG in Dextrose 5% in Water 250 ML IVPB SCH ×2 (07:25→16:04)
[2020-04-03] MEDS: Acetaminophen 500 MG TAB PER TUBE SCH ×3 (08:08→21:08)
[2020-04-03] MEDS: Metolazone 2.5 MG TAB PO SCH (08:09)
[2020-04-03] MEDS: Pantoprazole 40 MG VIAL IVP SCH (08:09)
[2020-04-03] MEDS: Insulin Glargine 10 UNITS in Pre-Filled Syringe 1 EACH SC SCH (08:09)
[2020-04-03] MEDS ORDERED: Digoxin 0.5 MG/2 ML AMP ONE (08:21)
[2020-04-03] MEDS ORDERED: Furosemide 40 MG/4 ML VIAL ONE (08:21)
[2020-04-03] MEDS ORDERED: Vasopressin 40 UNIT, Admixture Fee 1 EACH in Sodium Chloride 0.9% 98 ML IV SCH (09:00)
[2020-04-03] MEDS ORDERED: Calcium Chloride 1 GM/10 ML Abboject SYRINGE IVP SCH (09:00)
--- NOTE | 2020-04-03 09:11 | RAD ---
RADIOGRAPH CHEST 1 VIEW: DATE: 04/03/2020 TIME: 4:55 AM HISTORY: 79-year-old female with "congestive heart failure" COMPARISON: 04/02/2020 12:26 PM FINDINGS: The heart size is normal. Therefore, this is unlikely to represent congestive heart failure. Again noted is the left pleural effusion. No pulmonary edema. Left lung is relatively well aerated, except for mild left perihilar densities. Mild haziness at right medial lung base remains. Right IJ implantable vascular access port, endotracheal tube, esophagogastric tube, and Dobbhoff feed ing tube, remain. No pneumothorax. No interval change. IMPRESSION: No interval change.
[2020-04-03 09:29] LABS: Hemoglobin 9.2 g/dL (12.0-16.0); Platelet Count 28 thou/uL (130-400)
[2020-04-03 11:45] LABS: INR-International Normal Ratio 2.1; Prothrombin Time 23.1 sec (12.0-14.7)
[2020-04-03 11:46] LABS: PTT 60.8 sec (22.9-36.1)
--- NOTE | 2020-04-03 12:12 | PRG ---
DATE OF SERVICE: 04/03/2020 SUBJECTIVE: Ms. Miramontes is an 79-year-old woman, postoperative day #1, status post second-look exploratory laparotomy with enteroenterostomy, following partial small bowel resection for ischemic bowel necrosis. The patient remains on mechanical ventilator support. Overnight, she developed acute atrial fibrillation with rapid ventricular response and currently, on amiodarone by continuous infusion, rate is better controlled now. Otherwise, the patient is sedated with fentanyl at 40 mcg/hour. She moves all extremities. Follows commands. OBJECTIVE: VITAL SIGNS: This morning include blood pressure 89/51, pulse 105 and irregular, respiratory rate is 38, maximum temperature last 24 hours is 99.6 degrees Fahrenheit, and oxygen saturations 93% on FiO2 of 40% with a PEEP of 5. HEENT: Pupils are equal, round, and reactive to light bilaterally. NECK: She has no jugular venous distention noted. HEART: Reveals irregular rate and irregular rhythm. LUNGS: Reveal scattered rhonchi. Breathing, regular and nonlabored. ABDOMEN: Soft and nondistended. Wound VAC remains in place, returns scant amount of serous fluid. She has no peritoneal signs on examination. NEUROLOGIC: Reveals no focal deficits present. LABORATORY DATA: Laboratory findings today include a CBC with white blood cells 1100, hemoglobin and hematocrit remain stable at 8.5 and 26.1 respectively. Platelet count is 32,000. Metabolic profile; sodium 146, potassium 3.2, chloride is 116, bicarb is 18, BUN 45, creatinine is 1.42, glucose is 158, magnesium is 2.2, phosphorus is 3.9, and total bilirubin is 1.3. Chest x-ray reveals small bilateral pleural effusions, cardiomegaly, and increasing perihilar vascular markings. IMPRESSION: 1. Postop day #1, status post re-exploratory laparotomy with abdominal closure following enteroenterostomy. 2. Acute atrial fibrillation with rapid ventricular response. 3. Acute congestive heart failure exacerbation. 4. Acute hypokalemia. 5. Acute kidney injury. PLAN: 1. Continue with full mechanical ventilator support until the patient is hemodynamically stable. 2. The patient will be started on vasopressin drip to maintain better blood pressure. We will initiate gentle diuresis. 3. We will correct abnormal electrolytes. 4. Continue with amiodarone by continuous infusion and resume anticoagulation. 5. The patient was mobilized to a chair. 6. Initiate physical and occupational therapy. Total critical care time is 35 minutes. Job ID: [id number]
[2020-04-03] MEDS ORDERED: DOBUTamine 500 mg/250 ml 250 ML IVPB SCH (12:45)
[2020-04-03] MEDS: HumaLOG 300 UNITS/3 ML VIAL SC PRN ×3 (16:15→23:36)
[2020-04-03] MEDS ORDERED: Aluminum & Magnesium Hydroxide 60 ML, Lidocaine 2% Viscous Solution 30 ML, diphenhydrAM... SSW PRN (16:18)
[2020-04-03 18:23] LABS: INR-International Normal Ratio 2.3; Prothrombin Time 24.9 sec (12.0-14.7)
[2020-04-03 18:24] LABS: PTT 79.2 sec (22.9-36.1)
[2020-04-04 00:01] LABS: INR-International Normal Ratio 2.4; Prothrombin Time 25.6 sec (12.0-14.7)
--- NOTE | 2020-04-04 01:51 | PRG ---
DATE OF SERVICE: 04/04/2020 SUBJECTIVE: The patient remains in the critical care unit. She is status post re-exploratory laparotomy with abdominal closure following enteroenterostomy postop day one. Early this morning, she developed atrial fibrillation with a rapid ventricular response, and she was started on amiodarone. She also was having some hypotension necessitating her being started on vasopressin. Throughout the day, she has done well. She has continued to make adequate urine. She was able to be up out of bed into a neuro chair. She has had multiple loose stools and is tolerating small amount of tube feeds at this time. OBJECTIVE: VITAL SIGNS: At the time of my visit, her vital signs were stable. She was afebrile. She was resting comfortably in bed. She would open her eyes with gentle verbal stimuli and noted that she was not in pain. LUNGS: Clear to auscultation bilaterally. HEART: Irregularly irregular consistent with her atrial fibrillation. ABDOMEN: Soft, nondistended with active bowel sounds. Her dressing was clean, dry, and intact. Her wound VAC appeared to be functioning properly with serous drainage noted. EXTREMITIES: Neurovascularly intact x4. ASSESSMENT: 1. Status post re-exploratory laparotomy with abdominal closure following enteroenterostomy, postop day 1. 2. Acute atrial fibrillation with rapid ventricular response, stable. 3. Acute congestive heart failure exacerbation, stable. PLAN: Plan will be to continue supportive care including vasopressin, amiodarone, and heparin drips. Repeat labs in the morning and continue to follow her. The patient will likely start weaning to extubate in the next day or so. Job ID: [id number]
[2020-04-04 03:24] LABS: Band 4 % (5-11); Hemoglobin 7.9 g/dL (12.0-16.0); Hypochromia SLIGHT = 6-15 cells (100X) (0-5/hpf); Lymphocytes 48 % (21-51); MDiff Complete? YES; Mean Corpuscular HGB CONC 32.9 g/dL (32.0-36.0); Mean Corpuscular Hemoglobin 30.1 pg (27.0-31.0); Mean Corpuscular Volume 91.6 fL (78.0-98.0); Mean Platelet Volume 14.1 fL (7.4-10.4); Monocytes 36 % (0-10); Neutrophil 12 % (42-75); Platelet Count 32 thou/uL (130-400); Platelet Morphology Comment Appears Decreased; RBC Distribution Width 13.3 % (11.5-14.5); Red Blood Cell (RBC) Count 2.64 mill/uL (4.20-5.40); White Blood Cell (WBC) Count 1.5 thou/uL (4.8-10.8)
[2020-04-04 03:47] LABS: ALT (SGPT) 13 U/L (8-55); AST (SGOT) 12 U/L (5-34); Albumin 2.4 g/dL (3.4-4.8); Alkaline Phosphatase 52 U/L (40-110); Anion Gap 20 mmol/L (10-20); BUN (Urea Nitrogen) 53 mg/dL (9.8-20.1); Calc. Creatinine Clearance 27 mL/min (70-130); Calcium 7.5 mg/dL (7.8-10.44); Carbon Dioxide 13 mmol/L (23-31); Chloride 114 mmol/L (98-107); Estimated GFR-MDRD 22; Globulin 1.6 g/dL (2.4-3.5); Glucose 195 mg/dL (83-110); Magnesium 2.1 mg/dL (1.6-2.6); Potassium 2.7 mmol/L (3.5-5.1); Sodium 144 mmol/L (136-145)
[2020-04-04] MEDS ORDERED: Potassium Chloride 40 MEQ in Premix Bag 1 BAG IVPB SCH ×3 (04:00→12:15)
[2020-04-04] MEDS ORDERED: Albumin 25% 25 GM/100 ML BOT IVPB SCH (04:00)
[2020-04-04] MEDS: Piperacillin/Tazobactam 3.375 GM in Sodium Chloride 0.9% 100 ML IVPB SCH ×4 (04:13→22:48)
[2020-04-04] MEDS: Acetaminophen 500 MG TAB PER TUBE SCH ×4 (04:20→20:54)
[2020-04-04] MEDS: HumaLOG 300 UNITS/3 ML VIAL SC PRN ×2 (04:39→09:25)
--- NOTE | 2020-04-04 07:32 | PDOC.FM ---
- Subjective Subjective: Pt intubated. Did well overnight. Surg team added dobutamine and vasopressin yesterday. - Objective Vital Signs & Weight: Vital Signs (12 hours) Temp Pulse Resp Pulse Ox 04/04/20 07:14 115 H 15 96 04/04/20 06:00 21 H 04/04/20 04:00 97.6 F 20 04/04/20 02:48 139 H 04/04/20 02:00 18 04/04/20 00:29 93 22 H 100 04/04/20 00:27 98 04/04/20 00:00 20 04/03/20 22:44 104 H 04/03/20 22:00 20 04/03/20 20:00 97.1 F L 19 99 Weight Admit Weight 78 kg Weight 81.1 kg Most Recent Monitor Data Heart Rate from ECG 118 NIBP 134/59 NIBP BP-Mean 84 Respiration from ECG 19 SpO2 98 I&O: 04/03/20 04/04/20 04/05/20 06:59 06:59 06:59 Intake Total 4070.0 2198.9 Output Total 3015 2335 Balance 1055.0 -136.1 Result Diagrams: 04/04/20 02:45 04/04/20 02:45 Phys Exam - Physical Examination Constitutional: NAD HEENT: moist MMs, sclera anicteric Neck: no JVD, supple Respiratory: no wheezing, no rales Cardiovascular: no significant murmur, irregular Gastrointestinal: soft, non-tender Musculoskeletal: no edema, pulses present Neurological: non-focal, moves all 4 limbs Psychiatric: normal affect Deviation from normal: intubated Skin: no rash, normal turgor Dx/Plan (1) Ischemia, bowel Code(s): K55.9 - VASCULAR DISORDER OF INTESTINE, UNSPECIFIED Status: Acute (2) DKA (diabetic ketoacidoses) Code(s): E11.10 - TYPE 2 DIABETES MELLITUS WITH KETOACIDOSIS WITHOUT COMA Status: Acute Qualifiers: Diabetes mellitus type: type 2 Diabetes mellitus complication detail: without coma Qualified Code(s): E11.10 - Type 2 diabetes mellitus with ketoacidosis without coma (3) Hyperkalemia Code(s): E87.5 - HYPERKALEMIA Status: Acute (4) Hyponatremia Code(s): E87.1 - HYPO-OSMOLALITY AND HYPONATREMIA Status: Acute (5) IDDM (insulin dependent diabetes mellitus) Code(s): MOF1668 - Status: Acute (6) Large bowel perforation Code(s): K63.1 - PERFORATION OF INTESTINE (NONTRAUMATIC) Status: Acute (7) Palliative care encounter Code(s): Z51.5 - ENCOUNTER FOR PALLIATIVE CARE Status: Acute (8) Pancreatic cancer Status: Acute Qualifiers: Pancreatic malignancy location: unspecified Qualified Code(s): C25.9 - Malignant neoplasm of pancreas, unspecified - Plan Plan: Patient is an 79 yo female who presents with N/V/D and SOB is admitted for suspected bowel perforation and DKA: new onset Afib with RVR A- pt on amio drip, vasopressin, and dobutamin per surgical team. vitals are stable today P- will consider switching amio to digoxin for afib as amio is negative inotrop and may be contributing to low BPs -will consult cardiology for new onset afib -anticoagulation per surgery team considering recent surgeries, currently on heparin gtt per surgery for perioperative clot Ppx Bowel Perforation, Ischemic Bowel A- s/p two laprotomies on 03/31 and 04/03 with approx. 2 feet necrotic bowel removed jejunostomy. Pt seems to be doing well though still intubated. CT abd shows ischemic large bowel, free air suggestive of bowel perforation, left sided diverticulitis. Consult General Surgery-Dr. Vicente, appreciate recommendations. pt getting tube feeds P- mgmt and diet per surgery -diet per surgical mgmt RENETTA A- likely 2/2 above and low BPs yesterday. initial improvement, admission BUN 58 , Cr 2.21. May be slightly volume down P- monitor Cr and I/Os, consider IVF Neutropenia and Thrombocytopenia 2/2 chemo/Pancreatic Cancer A- previously had whipple procedure P- Consult Oncology, Dr. Gamble, appreciate recs. Dr. Gamble started Granix daily. hold off on any further chemotherapy Hyponatremia -resolved Hypokalemia -electrolyte replacement protocol, continue to monitor DKA, resolved -resolved Social: Palliative Care team consulted to discuss goals of care. Sister Sameera is MPOA for patient, presents with advanced directive documents signed by patient. Family meeting held 04/01 with all patient's provider team in attendance, discussed plan of care moving forward. Sister Sameera requests frequent updates. Diet: NPO VTE: Heparin gtt Code status: FULL PCP: Joshua MAXWELLA: "Sister Sameera", cell [phone] Tubes: ETT Lines: central line placed 03/31 Dispo: Guarded Addendum - Attending - Attending Attestation Date/Time: 04/04/20 [id number] I personally evaluated the patient and discussed the management with Dr. Houser. I agree with the History, Examination, Assessment and Plan documented above with any addition or exceptions noted below. Patient overall stable. We are managing her blood sugars which are stable. The trauma service is managing her post op course as well as her current Afib RVR. She is on Amiodarone, a known negative inotropic agent. Once she became hypotensive, likely from the amiodarone, she was started by the trauma service on Vasopressin and Dobutamine. I would recommend discontinuing the Amiodarone and we could likely control her HR with Diltiazem which would not have as drastic effect on her BP necessitating the Vasopressin and Dobutamine. She has good UOP. Further mgmt per Trauma service. Evidence of worsening renal function as well as hypokalemia, suspect the patient is having some volume issues and/or a mild bump in values from her short period of hypotension.
[2020-04-04] MEDS: Metolazone 2.5 MG TAB PO SCH (07:40)
[2020-04-04] MEDS: Insulin Glargine 10 UNITS in Pre-Filled Syringe 1 EACH SC SCH (09:25)
[2020-04-04] MEDS: Pantoprazole 40 MG VIAL IVP SCH (09:25)
[2020-04-04 09:36] LABS: Hemoglobin 7.6 g/dL (12.0-16.0); Mean Corpuscular HGB CONC 32.6 g/dL (32.0-36.0); Mean Corpuscular Hemoglobin 30.3 pg (27.0-31.0); Mean Corpuscular Volume 93.1 fL (78.0-98.0); Mean Platelet Volume 13.9 fL (7.4-10.4); Platelet Count 35 thou/uL (130-400); RBC Distribution Width 13.1 % (11.5-14.5); Red Blood Cell (RBC) Count 2.51 mill/uL (4.20-5.40); White Blood Cell (WBC) Count 1.3 thou/uL (4.8-10.8)
[2020-04-04 09:40] LABS: Anion Gap 20 mmol/L (10-20); BUN (Urea Nitrogen) 54 mg/dL (9.8-20.1); Calc. Creatinine Clearance 26 mL/min (70-130); Calcium 7.6 mg/dL (7.8-10.44); Carbon Dioxide 14 mmol/L (23-31); Chloride 113 mmol/L (98-107); Estimated GFR-MDRD 21; Glucose 192 mg/dL (83-110); Magnesium 2.1 mg/dL (1.6-2.6); Phosphorus 4.1 mg/dL (2.3-4.7); Potassium 3.1 mmol/L (3.5-5.1); Sodium 144 mmol/L (136-145)
[2020-04-04 10:04] LABS: Band 9 % (5-11); Burr Cells MARKED = >16 cells (100X) (0-1/hpf); Eosinophils 6 % (0-10); Hypochromia MARKED = >30 cells (100X) (0-5/hpf); Lymphocytes 38 % (21-51); MDiff Complete? YES; Metamyelocyte 3 % (0-0); Monocytes 31 % (0-10); Neutrophil 11 % (42-75); Platelet Morphology Comment Appears Decreased; Polychromasia SLIGHT = 2-3 cells (100X) (0-2/hpf); Reactive Lymphocytes 2 % (0-10); Target Cells MODERATE= 6-15 cells (100X) (0-1/hpf)
[2020-04-04] MEDS ORDERED: Sodium Bicarbonate 150 MEQ in Dextrose 5% in Water 1,000 ML IV SCH (12:15)
--- NOTE | 2020-04-04 12:23 | RAD ---
PORTABLE CHEST ONE VIEW: HISTORY: Line placement. FINDINGS: Gastric tubes and endotracheal tube and right central line and injection port remain in place. There is placement of a left subclavian catheter, the tip of which extends into the distal superior vena ca va. No pneumothorax or pleural effusion or other acute process. Stable to slightly improved perihilar and parenchymal changes. No pneumothorax. IMPRESSION: Placement of left subclavian catheter without pneumothorax or pleural effusion. Some increased markin gs, particularly in the perihilar region, showing slight improvement. Continue short-term followup. POS: [facility]
--- NOTE | 2020-04-04 12:36 | PRG ---
DATE OF SERVICE: 04/04/2020 SUBJECTIVE: Ms. Miramontes is an 79-year-old woman, status post exploratory laparotomy with partial bowel resection for ischemic bowel necrosis. She is awake, on mechanical ventilator support today. She moves all extremities. Follows commands. Although she is having bowel movements from trophic tube feeds, there is large residual from the nasogastric tube which is also tube feed tinged. She remains on vasopressin at 2.4 units/hour. Urinary output is adequate for the patient's age and weight. She is on dobutamine 2.5 mcg/kg per minute. OBJECTIVE: VITAL SIGNS: This morning include blood pressure 126/63, pulse 153 and irregular, respiratory rate is 19, maximum temperature in last 24 hours is 98.6 degrees Fahrenheit, oxygen saturation is 100% on FiO2 of 50%. HEENT: Pupils are equal, round, and reactive to light bilaterally. HEART: Reveals irregular rate and irregular rhythm, in atrial fibrillation with rapid ventricular response, on amiodarone by continuous infusion. LUNGS: Reveal scattered rhonchi. Breathing regular and nonlabored. ABDOMEN: Soft, nondistended. Wound VAC is in place. No output of fluids today. Bowel sounds are present in all 4 quadrants. She has no peritoneal signs on examination. NEUROLOGIC: Reveals no focal deficits present. LABORATORY FINDINGS: Today include a CBC with 1300 white blood cells, hemoglobin and hematocrit are 7.6 and 23.4 respectively, platelet count is 35,000. Metabolic profile; sodium 144, potassium 3.1, chloride is 113, bicarb is 14, BUN is 54, creatinine is 2.21, glucose is 192, magnesium is 2.1, and phosphorus is 4.1. IMPRESSION: 1. Postoperative day #2, status post re-exploratory laparotomy, enteroenterostomy, and abdominal closure for ischemic bowel necrosis. 2. Acute respiratory failure, improving. 3. Acute kidney injury. 4. Acute hypokalemia. 5. Atrial fibrillation with rapid ventricular response. 6. Acute blood loss anemia. 7. Thrombocytopenia. PLAN: 1. The patient will be transfused with 1 unit of packed red blood cells. 2. We will hold tube feeds and start TPN at this time. 3. We will wean and extubate the patient as tolerated. 4. Correct abnormal electrolytes. 5. We will monitor the patient's urinary output and renal function as endpoint of our resuscitation. TIME SPENT: Total critical care time is 35 minutes. Job ID: [id number]
--- NOTE | 2020-04-04 13:18 | PDOC.MOPN ---
Interval History: off ventilator today, c/o some pain but is not entirely oriented - Vital Signs Vital Signs: Vital Signs (12 hours) Temp Pulse Pulse Resp BP Pulse Ox 04/04/20 12:45 97.4 F L 144 H 18 91/42 L 98 04/04/20 11:00 97.5 F L 142 H 31 H 113/58 L 100 04/04/20 10:45 97.4 F L 153 H 28 H 126/63 96 04/04/20 10:27 146 H 04/04/20 10:00 26 H 04/04/20 08:00 97.4 F L 22 H 04/04/20 07:14 115 H 15 96 04/04/20 06:00 21 H 04/04/20 04:00 97.6 F 20 04/04/20 02:48 139 H 04/04/20 02:00 18 Weight Admit Weight 171 lb 15.369 oz Weight 178 lb 12.718 oz Most Recent Monitor Data Heart Rate from ECG 129 NIBP 89/53 NIBP BP-Mean 65 Respiration from ECG 18 SpO2 98 - Physical Exam General: Other (no acute distress, responds to voice and says hello but does not answer questions appropriately) HEENT: Atraumatic Lungs: Clear to auscultation Cardiovascular: Regular rate, Other (tachy) Abdomen: Other (wound vac in place, tender, nut no r/g) Extremities: Other (1-2+ edema jeanie LEs) Psych/Mental Status: Other (still seems to be coming off sedation) - Labs Result Diagrams: 04/04/20 08:55 04/04/20 08:55 Lab results: Laboratory Results - last 24 hr 04/04/20 09:30: Blood Type A POSITIVE, Antibody Screen NEGATIVE, Crossmatch See Detail 04/04/20 09:25: POC Glucose 155 H 04/04/20 08:55: APTT 72.3 H 04/04/20 08:55: WBC 1.3 L, RBC 2.51 L, Hgb 7.6 L, Hct 23.4 L, MCV 93.1, MCH 30.3 , MCHC 32.6, RDW 13.1, Plt Count 35 L, MPV 13.9 H, Neutrophils % (Manual) 11 L, Band Neuts % (Manual) 9, Lymphocytes % (Manual) 38, Reactive Lymphs % 2, Monocytes % (Manual) 31 H, Eosinophils % (Manual) 6, Metamyelocytes % (Man) 3 H , Lymphocytes # Not Reportable, Hypochromia MARKED = >30 cells H, Plt Morphology Comment Appears Decreased L, Polychromasia SLIGHT = 2-3 cells, Target Cells MODERATE= 6-15 cells H, Rosanne Cells MARKED = >16 cells H 04/04/20 08:55: Sodium 144, Potassium 3.1 L, Chloride 113 H, Carbon Dioxide 14 L , Anion Gap 20, BUN 54 H, Creatinine 2.21 H, Estimated GFR (MDRD) 21, Glucose 192 H, Calcium 7.6 L, Phosphorus 4.1, Magnesium 2.1 04/04/20 02:45: APTT 38.1 H 04/04/20 02:45: Phosphorus 4.0 04/04/20 02:45: Sodium 144, Potassium 2.7 L*, Chloride 114 H, Carbon Dioxide 13 L, Anion Gap 20, BUN 53 H, Creatinine 2.14 H, Estimated GFR (MDRD) 22, Glucose 195 H, Calcium 7.5 L, Magnesium 2.1, Total Bilirubin 1.0, AST 12, ALT 13, Alkaline Phosphatase 52, Serum Total Protein 4.0 L, Albumin 2.4 L, Globulin 1.6 L, Albumin/Globulin Ratio 1.5 04/04/20 02:45: WBC 1.5 L, RBC 2.64 L, Hgb 7.9 L, Hct 24.1 L, MCV 91.6, MCH 30.1 , MCHC 32.9, RDW 13.3, Plt Count 32 L, MPV 14.1 H, Neutrophils % (Manual) 12 L, Band Neuts % (Manual) 4 L, Lymphocytes % (Manual) 48, Monocytes % (Manual) 36 H , Hypochromia SLIGHT = 6-15 cells, Plt Morphology Comment Appears Decreased L 04/03/20 23:43: PT 25.6 H, INR 2.4, APTT 159.0 H* 04/03/20 23:39: POC Glucose 223 H 04/03/20 21:35: POC Glucose 248 H 04/03/20 18:06: PT 24.9 H, INR 2.3, APTT 79.2 H 04/03/20 16:14: POC Glucose 227 H 04/03/20 12:40: POC Glucose 200 H 04/03/20 10:00: POC Glucose 203 H 04/03/20 00:05: POC Glucose 150 H 04/02/20 20:48: POC Glucose 162 H 04/02/20 16:02: POC Glucose 214 H 04/02/20 13:35: POC Glucose 187 H 03/31/20 12:24: Crossmatch See Detail A/P - Problem (1) Pancytopenia due to chemotherapy Current Visit: Yes Code(s): D61.810 - ANTINEOPLASTIC CHEMOTHERAPY INDUCED PANCYTOPENIA Status: Acute (2) Ischemia, bowel Current Visit: Yes Code(s): K55.9 - VASCULAR DISORDER OF INTESTINE, UNSPECIFIED Status: Acute (3) Large bowel perforation Current Visit: Yes Code(s): K63.1 - PERFORATION OF INTESTINE (NONTRAUMATIC) Status: Acute (4) Pancreatic cancer Current Visit: Yes Status: Acute Qualifiers: Pancreatic malignancy location: unspecified Qualified Code(s): C25.9 - Malignant neoplasm of pancreas, unspecified (5) Anxiety Current Visit: Yes Code(s): F41.9 - ANXIETY DISORDER, UNSPECIFIED Status: Acute - Plan Plan: 1. cont to wean sedation, consider anxiolytics if necessary 2. cont neupogen 3. transfuse prn 4. cont abx 5. appreciate surgical ICU support
[2020-04-04 15:13] LABS: Anion Gap 19 mmol/L (10-20); BUN (Urea Nitrogen) 57 mg/dL (9.8-20.1); Calc. Creatinine Clearance 25 mL/min (70-130); Calcium 7.7 mg/dL (7.8-10.44); Carbon Dioxide 14 mmol/L (23-31); Chloride 115 mmol/L (98-107); Estimated GFR-MDRD 21; Glucose 137 mg/dL (83-110); Potassium 3.4 mmol/L (3.5-5.1); Sodium 145 mmol/L (136-145)
[2020-04-04] MEDS ORDERED: Sodium Bicarb 50 MEQ/50 ML Abboject 8.4% SYRINGE IVP SCH ×2 (15:15→20:15)
[2020-04-04] MEDS ORDERED: Calcium Chloride 1 GM/10 ML Abboject SYRINGE IVP SCH ×2 (15:15→20:15)
[2020-04-04] MEDS: Heparin 25,000 units/D5W 500 ML IVPB SCH (15:56)
[2020-04-04] MEDS: Heparin 10,000 UNITS/ 10 ML VIAL SLOW IVP SCH (15:57)
[2020-04-04] MEDS ORDERED: Potassium Chloride 20 MEQ in Premix Bag 1 BAG IVPB SCH (16:00)
[2020-04-04 16:29] LABS: Hemoglobin 8.1 g/dL (12.0-16.0); Platelet Count 27 thou/uL (130-400)
[2020-04-04] MEDS ORDERED: Digoxin 0.5 MG/2 ML AMP SLOW IVP SCH (16:45)
[2020-04-04] MEDS: Amiodarone 450 MG in Dextrose 5% in Water 250 ML IVPB SCH (17:25)
[2020-04-04] MEDS ORDERED: Sodium Chloride 0.9% 500 ML IV SCH (18:00)
[2020-04-04] MEDS ORDERED: traMADol HCl 50 MG TAB PO PRN (18:41)
[2020-04-04 19:04] LABS: Actual Bicarbonate (HCO3a) 14.4 mEq/L (22-28); Base Excess (BEa) -10.6 mEq/L (-2.0 to +3.0); CO2 Tension 28.8 mmHg (35.0-45.0); Calcium, Ionized (arterial) 1.15 mmol/L (1.12-1.30); Carboxyhemoglobin (COHb) 0.3 gm% (0.0-3.0); Hemoglobin (Hb) 8.7 g/dL (12.0-16.0); O2 Tension (PaO2), arterial 67.5 mmHg (> 60.0); Potassium - ABG Lab 4.13 mmol/L (3.70-5.30); pH, Arterial 7.32 (7.35-7.45)
[2020-04-04 19:06] LABS: Puncture Site LR
[2020-04-04 19:59] LABS: Lactic Acid 8.8 mmol/L (0.5-2.2)
[2020-04-04] MEDS ORDERED: Fentanyl 100 MCG/2 ML VIAL SLOW IVP SCH (21:45)
[2020-04-04] MEDS: Sodium Acetate 2 mEq/ml 40 MEQ, Sodium Chloride 30 MEQ, Potassium Chloride 20 MEQ, Pota... IV SCH (22:29)
--- NOTE | 2020-04-04 23:19 | CON ---
DATE OF CONSULTATION: 04/04/2020 INDICATION FOR CONSULTATION: An 79-year-old female, who is status post small bowel resection due to necrotic bowel, who went into atrial fibrillation with rapid ventricular response. We were asked to see her for the atrial fibrillation. HISTORY OF PRESENT ILLNESS: This is an 79-year-old female, who has stage III pancreatic cancer and underwent a recent Whipple procedure and also chemotherapy , has been readmitted with small-bowel obstruction and laparoscopic evaluation, was found to have necrotic bowel and underwent small bowel resection due to the ischemia and necrosis. After surgical procedure, I believe it was yesterday or the day before, she has now developed atrial fibrillation with rapid ventricular response. She has had no history in the past of atrial fibrillation. She was seen [place] [address] Mejia and had a stress test, I do not have the results of that, but I am assuming it was unremarkable. She also had an echocardiogram at that time, which showed an ejection fraction of 50% to 55% with mild diastolic dysfunction and mild tricuspid valve regurgitation. She underwent an echocardiogram on this admission, which showed an ejection fraction of 60% to 65%. She was tachycardic during the procedure and may have been on dobutamine at that time, it is unclear. She also had trace mitral and tricuspid valve regurgitation. At this time, with atrial fibrillation, her heart rate has been anywhere in the 130s to 140s. The blood pressure is also on the low side in the 80s. Previously, she was intubated after surgery, but now she is extubated, but she is unable to give any history. She can barely talk and does appear to be very ill. PAST MEDICAL HISTORY: Significant for the pancreatic cancer, small bowel necrosis with resection, diabetes, hypertension, peripheral vascular disease, gastroesophageal reflux disease, history of sciatica, anxiety, total abdominal hysterectomy, and bilateral salpingo-oophorectomy. 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 There is no alcohol or tobacco abuse. FAMILY HISTORY: Noncontributory at this time. ALLERGIES: SHE IS ALLERGIC TO SULFA, CODEINE, AND AZITHROMYCIN. MEDICATIONS: At this time include, 1. Amiodarone IV. 2. She is on etomidate. 3. She is on dobutamine. 4. Fentanyl. 5. Heparin for DVT prophylaxis. 6. She is also on insulin. 7. She is on piperacillin. 8. She is getting potassium replacement. 9. She has also been given sodium bicarb in the unit. 10. She has also been given albumin. 11. I will give her now 0.5 of digoxin. We will continue that and two more doses of 0.25 for a total dose of 1 mg of IV digoxin, then we will hold that medication. 12. She is also on ipratropium/albuterol. 13. She is on Zaroxolyn as needed, I think she was given at least 1 dose, I am not sure if that is a daily medication. 14. She is on Protonix. 15. She has also been given Granix via Dr. Gamble and she is on pain medications. FAMILY HISTORY: Noncontributory. Allergies as mentioned, sulfa, and azithromycin. REVIEW OF SYSTEMS: Not obtainable at this time. PHYSICAL EXAMINATION: GENERAL: Reveals an elderly female, who appears to be ill, uncomfortable. VITAL SIGNS: Blood pressure at this time is 90/40, heart rate is 135, respiratory rate is 21, and O2 saturation 98%. HEENT: She has an NG tube in the nares, otherwise I do not see any significant abnormalities. The carotid pulses are present. CARDIOVASCULAR: Reveals an irregular rapid rate. I do not hear any gross murmurs, heaves, thrills, bruits, or rubs. CHEST: Clear to auscultation. ABDOMEN: Surgical dressing in place. I do not hear any bowel sounds. EXTREMITIES: Show 2+ lower extremity edema. NEUROLOGIC: It is hard to determine. She is unable to get out of the bed. She could barely speak, so whether or not she is coherent or whether she is truly aware of her surroundings and what has happened is unclear, but otherwise I do not see any gross focal motor deficits that are appreciated. DIAGNOSTIC DATA: EKG shows atrial fibrillation with rapid ventricular response. Her chest x-ray did not show any acute findings. LABORATORY DATA: Showed a WBC of 1.3, hemoglobin 7.6, hematocrit was 23.4, platelet count 35,000. Sodium was 145, potassium 3.4, bicarb was 14, BUN 57, and creatinine is 2.28. Troponin I was 0.023 and BNP was 112. IMPRESSION: 1. An elderly female with stage III pancreatic cancer, who presented with necrotic bowel, small bowel, which underwent resection. This will be dealt with by the Surgery Department. 2. Atrial fibrillation with rapid ventricular response. She has been placed on IV amiodarone. I would agree with this. We will also stop the dobutamine as this may be contributing some to the tachycardia. We will add digoxin. We will only just give her a loading dose and hopefully, this will resolve the problem and once the blood pressure is more stable, we could start her on some beta blockers, but at this time, the blood pressure is too low to tolerate that. It may come up once we stop some of the other medications such as the dobutamine as well, and if necessary, may need to stop the amiodarone. She did not have atrial fibrillation when she came to the hospital, so hopefully she will be able to be converted out of it rather quickly, but she has been placed, I believe, on heparin. 3. Pancytopenia associated most likely with her chemotherapy due to the pancreatic cancer. 4. Renal insufficiency, uncertain if the etiology of this maybe contributing to overall some dehydration. She does appear to be somewhat prerenal. 5. Diabetes. The diabetes will be dealt with also by the primary service. The blood sugar has been in the 130s to 190 range. At this time, we will continue to monitor her very carefully. We will control the heart rate with the atrial fibrillation. Further care of the patient will be by Dr. Mejia when he visits with her tomorrow. Job ID: [id number] MTDD
--- NOTE | 2020-04-05 00:21 | PRG ---
DATE OF SERVICE: 04/04/2020 SUBJECTIVE: Patient was seen this evening during rounds. She was sitting up in bed. Earlier today, she was extubated. She reports that she was having some abdominal pain. Abdomen was tender with wound VAC in place. The patient did have some upper airway secretions which Nursing was having little difficulty clearing. Otherwise, she was oxygenating well and not tachypneic. The patient with lower hemodynamics this evening. Dr. Vicente has ordered 500 mL of normal saline to be given tonight. OBJECTIVE: VITAL SIGNS: Temperature 97.2, pulse 110, respirations 21, oxygen saturation 96% on nasal cannula, blood pressure 92/48. GENERAL: Ill and weak-appearing elderly female, sitting up in bed with no signs of acute pulmonary distress. CARDIAC: Equal chest rise and fall. Clear breath sounds bilaterally with associated upper airway rattle. No signs of acute respiratory distress. CARDIAC: Irregular rate and rhythm, currently in atrial fibrillation. No murmurs, gallops, or rubs. GASTROINTESTINAL: Abdomen is soft, tender to palpation and nondistended. Wound VAC in place with no output in canister. EXTREMITIES: 2+ pulses in all extremities. Gross motor and sensation intact. She has edematous extremities throughout. NEUROLOGIC: GCS is 14, -1 for verbal. LABORATORY FINDINGS: Hemoglobin 8.1, from 7.6; hematocrit 24.8, from 23.4; platelets 27, from 35. DIAGNOSTIC FINDINGS: There are no new diagnostic findings to report. ASSESSMENT: 1. Postop day #4 status post exploratory laparotomy with partial small-bowel resection, abdominal washout, and temporary abdominal closure. She is also postop day #2 status post second-look ex-lap excision of ischemic small-bowel wall with primary enterography, primary jejunostomy, placement of feeding NG tube, and abdominal washout and closure. 2. Ischemic bowel with perforation, now postop. 3. Diabetic ketoacidosis, resolved. 4. Atrial fibrillation with rapid ventricular response, persistent. 5. Acute kidney injury, worsening. 6. Thrombocytopenia, worsening. 7. History of pancreatic cancer, on chemo, status post Whipple, diabetes, diverticulosis, gastroesophageal reflux disease, and hyperlipidemia. PLAN: Continue amnio drip. Continue IV antibiotics. Continue TPN and bicarb drip. Total fluid aimed to be 150 an hour. Urinary output goal is 40 an hour. Nursing has been asked to notify Trauma if urinary output goal is not reached for 2 hours in a row. Continue heparin drip. We will give the patient one time dose of 50 mcg of fentanyl for acute breakthrough pain control. We will hold morphine for now as she is too hypotensive. We have tried oral tramadol as the patient needs additional pain medications. Dr. Muir of Cardiology did see the patient today and gave her a one-time dose of digoxin. She also recommended stopping the dobutamine, which was done earlier today. Further recommendations will depend on the patient's hemodynamics going forward. Job ID: [id number]
[2020-04-05] MEDS: Amiodarone 450 MG in Dextrose 5% in Water 250 ML IVPB SCH ×3 (00:51→18:09)
[2020-04-05] MEDS: HumaLOG 300 UNITS/3 ML VIAL SC PRN ×2 (00:54→06:03)
[2020-04-05] MEDS: Morphine 2 MG/ML VIAL SLOW IVP PRN ×2 (01:02→06:40)
[2020-04-05] MEDS: Acetaminophen 500 MG TAB PER TUBE SCH ×4 (03:06→20:50)
[2020-04-05 05:01] LABS: Phosphorus 3.9 mg/dL (2.3-4.7)
[2020-04-05 05:04] LABS: Platelet Count 26 thou/uL (130-400)
[2020-04-05 05:05] LABS: ALT (SGPT) 11 U/L (8-55); AST (SGOT) 17 U/L (5-34); Albumin 2.8 g/dL (3.4-4.8); Alkaline Phosphatase 45 U/L (40-110); Anion Gap 22 mmol/L (10-20); BUN (Urea Nitrogen) 63 mg/dL (9.8-20.1); Bilirubin, Total 1.8 mg/dL (0.2-1.2); Calc. Creatinine Clearance 22 mL/min (70-130); Calcium 8.4 mg/dL (7.8-10.44); Carbon Dioxide 17 mmol/L (23-31); Chloride 112 mmol/L (98-107); Estimated GFR-MDRD 18; Globulin 1.5 g/dL (2.4-3.5); Glucose 300 mg/dL (83-110); Hemoglobin 8.3 g/dL (12.0-16.0); Magnesium 2.1 mg/dL (1.6-2.6); Mean Corpuscular HGB CONC 33.4 g/dL (32.0-36.0); Mean Corpuscular Hemoglobin 30.1 pg (27.0-31.0); Mean Corpuscular Volume 90.2 fL (78.0-98.0); Mean Platelet Volume 14.6 fL (7.4-10.4); Potassium 3.9 mmol/L (3.5-5.1); Protein, Total 4.3 g/dL (6.0-8.3); RBC Distribution Width 13.4 % (11.5-14.5); Red Blood Cell (RBC) Count 2.75 mill/uL (4.20-5.40); Sodium 147 mmol/L (136-145); White Blood Cell (WBC) Count 2.3 thou/uL (4.8-10.8)
[2020-04-05 05:29] LABS: Band 22 % (5-11); Lymphocytes 22 % (21-51); MDiff Complete? YES; Metamyelocyte 1 % (0-0); Monocytes 20 % (0-10); Myelocyte 1 % (0-0); Neutrophil 34 % (42-75); Platelet Morphology Comment Appears Decreased
--- NOTE | 2020-04-05 05:46 | PDOC.FM ---
- Subjective Subjective: Unwell this morning. She is moaning in pain, her mouth is dry and she cannot talk. She was able to answer yes/no with head motions. - Objective MAR Reviewed: Yes Vital Signs & Weight: Vital Signs (12 hours) Temp Pulse Resp Pulse Ox 04/05/20 04:00 97.6 F 04/05/20 00:25 114 H 18 97 04/05/20 00:00 97.5 F L 04/04/20 20:00 97.2 F L 97 04/04/20 18:30 117 H 16 96 Weight Admit Weight 78 kg Weight 84.7 kg Most Recent Monitor Data Heart Rate from ECG 104 NIBP 123/53 NIBP BP-Mean 76 Respiration from ECG 19 SpO2 92 I&O: 04/03/20 04/04/20 04/05/20 06:59 06:59 06:59 Intake Total 4070.0 2198.9 4072 Output Total 3015 2335 2027 Balance 1055.0 -136.1 2045 Result Diagrams: 04/05/20 03:55 04/05/20 11:08 Phys Exam - Physical Examination Appears in pain Dry mucus membranes Neck: no JVD, supple Respiratory: no wheezing, no rales, no rhonchi, clear to auscultation bilateral Cardiovascular: no significant murmur Tachy Gastrointestinal: soft TTP. Wound vac in place to midline wound. Musculoskeletal: pulses present 2+ edema BLE Neurological: moves all 4 limbs Skin: no rash, normal turgor Dx/Plan (1) HTN (hypertension) Code(s): I10 - ESSENTIAL (PRIMARY) HYPERTENSION Status: Acute (2) HLD (hyperlipidemia) Code(s): E78.5 - HYPERLIPIDEMIA, UNSPECIFIED Status: Acute (3) GERD (gastroesophageal reflux disease) Code(s): K21.9 - GASTRO-ESOPHAGEAL REFLUX DISEASE WITHOUT ESOPHAGITIS Status: Acute (4) Atrial fibrillation with rapid ventricular response Code(s): I48.91 - UNSPECIFIED ATRIAL FIBRILLATION Status: Acute (5) Thrombocytopenia Code(s): D69.6 - THROMBOCYTOPENIA, UNSPECIFIED Status: Acute (6) IDDM (insulin dependent diabetes mellitus) Code(s): UKR4231 - Status: Acute (7) Ischemia, bowel Code(s): K55.9 - VASCULAR DISORDER OF INTESTINE, UNSPECIFIED Status: Acute (8) Large bowel perforation Code(s): K63.1 - PERFORATION OF INTESTINE (NONTRAUMATIC) Status: Acute (9) Pancreatic cancer Status: Acute Qualifiers: Pancreatic malignancy location: unspecified Qualified Code(s): C25.9 - Malignant neoplasm of pancreas, unspecified - Plan Plan: New onset Afib with RVR - Cardiology consulted 04/04/2020. - Was previously on Amiodarone gtt, Dobutamine gtt, and Vasopressin gtt. Received loading Digoxin dose 04/04. Discontinued dobutamine 04/04. Still on Amiodarone. -anticoagulation per surgery team considering recent surgeries, currently on heparin gtt per surgery for perioperative clot Ppx Bowel Perforation, Ischemic Bowel - s/p two ex-laps on 03/31 and 04/03 with approx. 2 feet necrotic bowel removed. Wound vac in place. - TPN initiated 04/04/20. - diet per surgical mgmt RENETTA, worsening - Cr 2.54 Neutropenia and Thrombocytopenia 2/2 chemo/Pancreatic Cancer - previously had whipple procedure - Consult Oncology, Dr. Gamble, appreciate recs. Dr. Gamble started Granix daily. Chemotherapy on hold. Hypernatremia - patient is likely volume depleted. Hypokalemia -electrolyte replacement protocol, continue to monitor DKA, resolved -resolved Hyponatremia, resolved. Social: Palliative Care team consulted to discuss goals of care. Sister Sameera is MPOA for patient, presents with advanced directive documents signed by patient. Family meeting held 04/01 with all patient's provider team in attendance, discussed plan of care moving forward. Sister Sameera requests frequent updates. Intubated 03/31-04/04. Now extubated on 2L NC overnight, is currently on HFNC after desaturating during bed bathing. Diet: TPN VTE: Heparin gtt Code status: FULL PCP: Joshua ARREOLAA: "Sister Sameera", cell [phone] Lines: central line placed 03/31 Dispo: Guarded Addendum - Attending - Attending Attestation Date/Time: 04/05/20 0201 I personally evaluated the patient and discussed the management with Dr. Clay. I agree with the History, Examination, Assessment and Plan documented above with any addition or exceptions noted below. I saw patient after washout this morning. She was intubated and sedated. Will f/ u gen surg recs. HIT ab ordered due to low platelets. May need to consider alternative anticoagulation given low platelets.
[2020-04-05] MEDS: Piperacillin/Tazobactam 3.375 GM in Sodium Chloride 0.9% 100 ML IVPB SCH ×2 (06:01→12:46)
[2020-04-05] MEDS ORDERED: Furosemide 40 MG/4 ML VIAL SLOW IVP SCH (08:15)
[2020-04-05] MEDS ORDERED: Phenylephrine 10 MG/ML VIAL ONE (09:32)
[2020-04-05] MEDS ORDERED: Fentanyl 100 MCG/2 ML VIAL ONE (09:32)
[2020-04-05] MEDS ORDERED: Famotidine/PF 20 mg/2ml Vial ONE (09:32)
[2020-04-05] MEDS: Pantoprazole 40 MG VIAL IVP SCH (09:35)
--- NOTE | 2020-04-05 09:36 | RAD ---
PORTABLE CHEST 1 VIEW: DATE: 04/05/2020. TIME: 6:01 AM. HISTORY: Increased oxygen demand. FINDINGS: Comparison is made with the exam of previous day. The endotracheal tube has been removed in the interim. The remainder of the lines and tubes are ot herwise unchanged in position. There are mild infiltrates of the lung bases with accompanying small effusions. No pneumothoraces are seen. POS: [facility]
[2020-04-05] MEDS: HUMULIN R 100 UNITS in Sodium Chloride 0.9% 100 ML IVPB SCH ×2 (09:37→16:07)
--- NOTE | 2020-04-05 10:37 | PRG ---
DATE OF SERVICE: 04/05/2020 SUBJECTIVE: I am seeing Ms. Miramontes this morning 79-year-old woman, who recently underwent exploratory laparotomy, partial bowel resection for ischemic bowel necrosis. Overnight, urinary output responding only to fluid boluses. This morning, she is awake and complaining of severe abdominal pain. She is still having loose bowel movements. She is on no vasopressor or inotropic support. OBJECTIVE: VITAL SIGNS: This morning include blood pressure 140/66, pulse is 96 and irregular, respiratory rate is 23, maximum temperature in last 24 hours is 97.6 degrees Fahrenheit, and oxygen saturation is 96% on 50% high-flow nasal cannula oxygen. HEENT: Pupils equal, round, reactive to light and accommodation. She has mild bilateral scleral edema. NECK: She has no jugular venous distention noted. HEART: Reveals irregular rate and irregular rhythm. LUNGS: Reveals bibasilar rhonchi. Breathing regular and nonlabored. ABDOMEN: Soft, diffusely tender to palpation. Wound VAC remains in place. NEUROLOGIC: Reveals no focal deficits present. LABORATORY FINDINGS: Today include a CBC with 2300 white blood cells, hemoglobin and hematocrit are stable at 8.3 and 24.9 respectively. Platelet count is low at 26,000. Metabolic profile; sodium 147, potassium is 3.9, chloride is 112, bicarb is 17, BUN is 63, creatinine is 2.54, glucose is 300 on TPN. Lactic acid is elevated at 10.0, phosphorus 3.9, and magnesium is 2.1. IMPRESSIONS: 1. Acute lactic acidosis. I suspect ongoing ischemia. 2. Acute kidney injury likely secondary to #1. 3. Acute atrial fibrillation with rapid ventricular response, better rate control. 4. Acute hyperglycemia, likely stress induced made worse obviously by TPN, rule out recurrent diabetic ketoacidosis I doubt. 5. Acute hyponatremia. PLAN: 1. Discussed with the patient's power of energy attorney. We will need to return to the operating room today for re-exploratory laparotomy. 2. Continued fluid resuscitation using serum lactate and renal function as endpoint of our resuscitation. Total critical care time here is 40 minutes. Job ID: [id number]
[2020-04-05 11:20] LABS: Actual Bicarbonate (HCO3a) 14.7 mEq/L (22-28); Base Excess (BEa) -12.4 mEq/L (-2.0 to +3.0); Calcium, Ionized (arterial) 1.12 mmol/L (1.12-1.30); Carboxyhemoglobin (COHb) 0.6 gm% (0.0-3.0); Hemoglobin (Hb) 8.2 g/dL (12.0-16.0); O2 Tension (PaO2), arterial 70.7 mmHg (> 60.0); Potassium - ABG Lab 3.13 mmol/L (3.70-5.30)
--- NOTE | 2020-04-05 11:21 | OP ---
DATE OF PROCEDURE: 04/05/2020 PREOPERATIVE DIAGNOSES: 1. Ischemic bowel necrosis status post partial small-bowel resection. 2. Acute lactic acidosis, suspicious for recurrent ischemic bowel necrosis. POSTOPERATIVE DIAGNOSES: 1. Ischemic bowel necrosis status post partial small-bowel resection. 2. No gross evidence of recurrent ischemic bowel necrosis. OPERATIONS PERFORMED: 1. Exploratory laparotomy. 2. Abdominal washout. 3. Temporary abdominal closure with wound VAC. ANESTHESIA: General endotracheal. ESTIMATED BLOOD LOSS: Negligible. FLUIDS GIVEN: 500 mL of crystalloids. COUNTS: Sponge and instrument counts were verified as correct x2. COMPLICATIONS: None apparent at the time of operation. INDICATIONS FOR OPERATION: This is an 79-year-old woman who previously underwent exploratory laparotomy with partial small-bowel resection for ischemic bowel necrosis. Overnight, she developed worsening lactic acidemia and worsening acute kidney injury. Suspected recurrent ischemic bowel necrosis, for which the patient was brought to the operating room for exploration. Findings are consistent with intact previous enteroenterostomy as well as intact previous enterorrhaphy. There is no evidence of recurrent ischemia, bowel obstruction, or perforation. DESCRIPTION OF PROCEDURE: Informed consent was obtained from the patient's power of environmental attorney. The patient was brought to the operating room and placed in supine position. Following general anesthesia, the external wound VAC dressing was removed, and abdomen was sterilely prepped and draped in the usual fashion. Fascial sutures were excised and a Bookwalter retractor was put in place to gain exposure to the peritoneal cavity. The abdomen was explored in all 4 quadrants. Only moderate amount of straw-colored ascites was evacuated. Small bowel was run from the ligament of Treitz down to the ileocecal junction. No active pathology noted. The previous jejunojejunal anastomosis was inspected and was intact and patent. No evidence of anastomotic breakdown. The previous enterorrhaphy site was also inspected. No evidence of bowel breakdown or perforation present. The large intestine was then inspected from the cecum through the ascending, transverse, descending, and sigmoid colon and rectum. No pathology identified here. Finding no other pathology, exploration was terminated. The abdomen was copiously irrigated in all 4 quadrants. Small bowel was returned to a normal anatomic location. Omentum was drawn over remainder of the viscera. ABThera dressing was used to cover the viscera. A wound VAC sponge was placed over this. A wound VAC dressing was drawn over the entire abdomen and connected to vacuum assisted device at 25 mmHg. The patient tolerated this operation without any apparent complication and was returned to recovery room in critical, but stable condition. Job ID: [id number]
[2020-04-05 11:26] LABS: Puncture Site ALINE
[2020-04-05] MEDS ORDERED: Succinylcholine Chloride 20 MG/ML 10 ml SYRINGE FS ONE (11:29)
[2020-04-05] MEDS ORDERED: PHENYLEPHRINE-NS 100 MCG/ML 10 ML SYRINGE ONE (11:29)
[2020-04-05 11:43] LABS: ALT (SGPT) 11 U/L (8-55); AST (SGOT) 17 U/L (5-34); Albumin 2.8 g/dL (3.4-4.8); Alkaline Phosphatase 46 U/L (40-110); Anion Gap 20 mmol/L (10-20); BUN (Urea Nitrogen) 63 mg/dL (9.8-20.1); Bilirubin, Total 1.6 mg/dL (0.2-1.2); Calc. Creatinine Clearance 23 mL/min (70-130); Calcium 7.8 mg/dL (7.8-10.44); Carbon Dioxide 14 mmol/L (23-31); Chloride 113 mmol/L (98-107); Estimated GFR-MDRD 18; Glucose 396 mg/dL (83-110); Potassium 3.4 mmol/L (3.5-5.1); Protein, Total 4.2 g/dL (6.0-8.3); Sodium 144 mmol/L (136-145)
[2020-04-05 11:49] LABS: Troponin I 0.044 ng/mL (< 0.028)
[2020-04-05] MEDS ORDERED: Potassium Chloride 20 MEQ in Premix Bag 1 BAG IVPB SCH ×2 (12:00→18:15)
[2020-04-05] MEDS ORDERED: Sodium Bicarb 50 MEQ/50 ML Abboject 8.4% SYRINGE IVP SCH ×2 (12:00→16:15)
[2020-04-05] MEDS: fentaNYL Citrate/PF 2,000 MCG in Sodium Chloride 0.9% 60 ML IV SCH (12:12)
[2020-04-05] MEDS: Metolazone 2.5 MG TAB PO SCH (12:43)
[2020-04-05] MEDS: Sodium Bicarbonate 150 MEQ in Dextrose 5% in Water 1,000 ML IV SCH (12:57)
[2020-04-05 13:38] LABS: Lactic Acid 9.3 mmol/L (0.5-2.2)
[2020-04-05] MEDS: Piperacillin/Tazobactam 2.25 GM in Sodium Chloride 0.9% 100 ML IVPB SCH ×2 (14:56→22:04)
--- NOTE | 2020-04-05 15:11 | PDOC.FMACP ---
Advance Care Planning - Problem (1) Palliative care encounter Status: Acute Code(s): Z51.5 - ENCOUNTER FOR PALLIATIVE CARE (2) DKA (diabetic ketoacidoses) Status: Acute Code(s): E11.10 - TYPE 2 DIABETES MELLITUS WITH KETOACIDOSIS WITHOUT COMA Qualifiers: Diabetes mellitus type: type 2 Diabetes mellitus complication detail: without coma Qualified Code(s): E11.10 - Type 2 diabetes mellitus with ketoacidosis without coma (3) IDDM (insulin dependent diabetes mellitus) Status: Acute Code(s): XLH1782 - (4) Ischemia, bowel Status: Acute Code(s): K55.9 - VASCULAR DISORDER OF INTESTINE, UNSPECIFIED (5) Large bowel perforation Status: Acute Code(s): K63.1 - PERFORATION OF INTESTINE (NONTRAUMATIC) - Note Participants: surrogate decision-maker, gag writer, palliative care Summary: Advanced Care Planning was discussed with patient GAYTAHRI Brasher, allowed an opportunity to decline. The diagnosis, prognosis and goals of care were discussed. Appropriate forms and documentation to accomplish the goals of care were discussed. All questions were answered. The Palliative Care Team will continue to assist with completion of any outstanding forms as identified. had completed Directive to Physician, which were reviewed. Currently desire is to remain with full resuscitation and aggressive measures. Time Spent (mins): 20
--- NOTE | 2020-04-05 16:07 | PDOC.MOPN ---
Interval History: intubated and sedated. - Vital Signs Vital Signs: Vital Signs (12 hours) Temp Pulse Pulse Resp BP BP Pulse Ox 04/05/20 15:30 97.6 F 108 H 21 H 116/35 L 95 04/05/20 14:18 110 H 04/05/20 12:00 20 94 L 04/05/20 11:08 101 H 123/100 H 04/05/20 08:00 96 04/05/20 07:51 96 04/05/20 07:49 96 23 H 96 Weight Admit Weight 171 lb 15.369 oz Weight 186 lb 11.704 oz Most Recent Monitor Data Heart Rate from ECG 100 NIBP 115/58 NIBP BP-Mean 77 Respiration from ECG 20 SpO2 95 - Physical Exam General: No acute distress Cardiovascular: Regular rate Abdomen: Other Neurological: Other - Labs Result Diagrams: 04/05/20 03:55 04/05/20 11:08 Lab results: Laboratory Results - last 24 hr 04/05/20 13:20: POC Glucose 368 H 04/05/20 13:09: Lactic Acid 9.3 H* 04/05/20 12:20: POC Glucose 412 H 04/05/20 11:16: Specimen Type ARTERIAL, Puncture Site JAY, Bicarbonate Actual 14.7 L, ABG pH 7.20 L*, ABG pCO2 39.0, ABG pO2 70.7 H, ABG O2 Sat (Measured) 91.2 L, ABG O2 Content 10.5 L, ABG Base Excess -12.4 L, ABG Hematocrit 24.0 L, ABG Hemoglobin 8.2 L, ABG Oxyhemoglobin 90.4 L, ABG Carboxyhemoglobin 0.6, ABG Methemoglobin 0.30, ABG Deoxyhemoglobin 8.7 H, Cj Test NOT DONE, A-a O2 Gradient 379.650 H, Sodium 143, Potassium 3.13 L, Chloride 114 H, Ionized Calcium 1.12, Mode of Support AC, Mechanical Rate 14, Inspired O2 70, Tidal Volume 450, PEEP or CPAP 5.0 04/05/20 11:09: POC Glucose 372 H 04/05/20 11:08: Troponin I 0.044 H 04/05/20 11:08: Sodium 144, Potassium 3.4 L, Chloride 113 H, Carbon Dioxide 14 L , Anion Gap 20, BUN 63 H, Creatinine 2.54 H, Estimated GFR (MDRD) 18, Glucose 396 H, Calcium 7.8, Phosphorus 4.0, Magnesium 2.0, Total Bilirubin 1.6 H, Direct Bilirubin 1.0 H, AST 17, ALT 11, Alkaline Phosphatase 46, Serum Total Protein 4.2 L, Albumin 2.8 L 04/05/20 11:08: B-Hydroxybutyrate 0.15 04/05/20 09:39: POC Glucose 386 H 04/05/20 03:55: Lactic Acid 10.0 H* 04/05/20 03:55: Phosphorus 3.9 04/05/20 03:55: Sodium 147 H, Potassium 3.9, Chloride 112 H, Carbon Dioxide 17 L , Anion Gap 22 H, BUN 63 H, Creatinine 2.54 H, Estimated GFR (MDRD) 18, Glucose 300 H, Calcium 8.4, Magnesium 2.1, Total Bilirubin 1.8 H, AST 17, ALT 11, Alkaline Phosphatase 45, Serum Total Protein 4.3 L, Albumin 2.8 L, Globulin 1.5 L, Albumin/Globulin Ratio 1.9 04/05/20 03:55: WBC 2.3 L, RBC 2.75 L, Hgb 8.3 L, Hct 24.9 L, MCV 90.2, MCH 30.1 , MCHC 33.4, RDW 13.4, Plt Count 26 L*, MPV 14.6 H, Neutrophils % (Manual) 34 L , Band Neuts % (Manual) 22 H, Lymphocytes % (Manual) 22, Monocytes % (Manual) 20 H, Metamyelocytes % (Man) 1 H, Myelocytes % 1 H, Lymphocytes # Not Reportable , Plt Morphology Comment Appears Decreased L 04/05/20 03:35: APTT 93.1 H 04/05/20 00:58: POC Glucose 208 H 04/04/20 21:57: APTT 93.5 H 04/04/20 19:35: POC Glucose 137 H 04/04/20 19:30: Lactic Acid 8.8 H* 04/04/20 18:52: Specimen Type ARTERIAL, Puncture Site LR, Bicarbonate Actual 14.4 L, ABG pH 7.32 L, ABG pCO2 28.8 L, ABG pO2 67.5 H, ABG O2 Sat (Measured) 92.9 L, ABG O2 Content 11.4 L, ABG Base Excess -10.6 L, ABG Hematocrit 26.0 L, ABG Hemoglobin 8.7 L, ABG Oxyhemoglobin 92.4 L, ABG Carboxyhemoglobin 0.3, ABG Methemoglobin 0.20, ABG Deoxyhemoglobin 7.1 H, Cj Test POSITIVE, A-a O2 Gradient 96.140 H, Sodium 145, Potassium 4.13, Chloride 116 H, Ionized Calcium 1.15, Mode of Support NC, Inspired O2 28 04/04/20 16:19: POC Glucose 134 H 04/04/20 16:10: Hgb 8.1 L, Hct 24.8 L, Plt Count 27 L* 04/04/20 13:13: POC Glucose 134 H 04/04/20 09:30: Blood Type A POSITIVE, Antibody Screen NEGATIVE, Crossmatch See Detail 04/04/20 04:43: POC Glucose 176 H Status: lab reviewed by me A/P - Problem (1) Large bowel perforation Current Visit: Yes Code(s): K63.1 - PERFORATION OF INTESTINE (NONTRAUMATIC) Status: Acute (2) Pancreatic cancer Current Visit: Yes Status: Acute Qualifiers: Pancreatic malignancy location: unspecified Qualified Code(s): C25.9 - Malignant neoplasm of pancreas, unspecified - Plan Plan: appreciated Dr. Vicente assistance continue supportive care
[2020-04-05] MEDS ORDERED: Calcium Chloride 13.6 MEQ in Sodium Chloride 0.9% 100 ML IVPB SCH (16:15)
[2020-04-05] MEDS ORDERED: Hydrocortisone Sod Succ/PF 100 mg/2 ml Vial IVP SCH (16:30)
[2020-04-05 16:54] LABS: Actual Bicarbonate (HCO3v) 19 mEq/L (22-28); Calcium, Ionized (venous) 1.13 mmol/L (1.16-1.32); Chloride (ABG LAB) 111 mmol/L (98-106); Hemoglobin (Hb) 8.9 g/dL (11.7-16.1); Potassium - ABG Lab 3.04 mmol/L (3.70-5.30); Sodium 145.7 mmol/L (133-146)
[2020-04-05 16:55] LABS: pH (venous) 7.24 (7.32-7.43)
--- NOTE | 2020-04-05 17:22 | PRG ---
DATE OF SERVICE: 04/05/2020 HISTORY: Ms. Miramontes continues to be intubated and sedated. She is off pressors today. She is currently on IV amiodarone, TPN, IV fluids, and she is receiving packed red blood cells. REVIEW OF SYSTEMS: Unobtainable. PHYSICAL EXAMINATION: VITAL SIGNS: Blood pressure 116/35, pulse 110, and respirations 20. LUNGS: Clear to auscultation. HEART: Regular rate and rhythm. ABDOMEN: No bowel sounds present. EXTREMITIES: No edema. PERTINENT LABORATORY DATA: Hemoglobin 8.3 and platelet count 26,000. IMPRESSION: 1. Small bowel perforation, status post resection of ischemic bowel. 2. Atrial fibrillation. 3. Anemia, requiring packed red blood cells. 4. Respiratory failure. RECOMMENDATIONS: From a heart rate standpoint, the patient is stable. Heart rate is in the 90s to 100s. Her noninvasive cardiac output is 7.1 with appropriate cardiac index. She is not requiring pressors. Continue IV amiodarone for now. Avoid anticoagulation therapy due to low platelet count. The patient's status is guarded. Job ID: [id number]
[2020-04-05 17:41] LABS: Troponin I 0.039 ng/mL (< 0.028)
[2020-04-05 17:51] LABS: Anion Gap 19 mmol/L (10-20); BUN (Urea Nitrogen) 64 mg/dL (9.8-20.1); Calc. Creatinine Clearance 26 mL/min (70-130); Carbon Dioxide 20 mmol/L (23-31); Chloride 114 mmol/L (98-107); Estimated GFR-MDRD 20; Glucose 180 mg/dL (83-110); Magnesium 1.8 mg/dL (1.6-2.6); Phosphorus 3.5 mg/dL (2.3-4.7); Potassium 3.3 mmol/L (3.5-5.1); Sodium 150 mmol/L (136-145)
[2020-04-05 17:58] LABS: Lactic Acid 8.7 mmol/L (0.5-2.2)
[2020-04-05] MEDS ORDERED: Norepinephrine 16 MG, Admixture Fee 1 EACH in Dextrose 5% in Water 250 ML IVPB SCH (18:00)
[2020-04-05] MEDS: Norepinephrine 16 MG, Admixture Fee 1 EACH in Dextrose 5% in Water 250 ML IVPB SCH (18:32)
[2020-04-05] MEDS ORDERED: Magnesium 2 GM/50 ML 2 GM in Premix Bag 1 BAG IVPB SCH (19:15)
[2020-04-05] MEDS ORDERED: Fluconazole In NaCl,Iso-Osm 400 MG in Premix Bag 1 BAG IVPB SCH (20:00)
[2020-04-05] MEDS ORDERED: Vancomycin 1.5 GRAM/300 ML BAG 1.5 GM in Premix Bag 1 BAG IVPB SCH (20:00)
[2020-04-05] MEDS: Potassium Chloride 20 MEQ in Premix Bag 1 BAG IVPB SCH ×2 (20:09→20:59)
[2020-04-05] MEDS: Hydrocortisone Sod Succ/PF 100 mg/2 ml Vial IVP SCH (22:04)
[2020-04-05] MEDS: CALCIUM GLUCONATE IV SCH (22:05)
[2020-04-05] MEDS: [UNRECOGNIZED DRUG - OTHER] IV SCH (22:05)
[2020-04-05] MEDS: POTASSIUM PHOSPHATE IV SCH (22:05)
[2020-04-05] MEDS: POTASSIUM ACETATE IV SCH (22:05)
--- NOTE | 2020-04-05 23:29 | PRG ---
DATE OF SERVICE: 04/05/2020 SUBJECTIVE: The patient was seen this evening in the CCU. She is intubated and sedated. She is on the ventilator and looks comfortable. The patient currently on vaso and levo as well as fentanyl drip. Antibiotics include Zosyn and fluconazole. Heart rate controlled with amnio drip, glucose controlled with insulin drip. The patient is postoperative day #0, status post ex-lap washout and temporary closure of the abdomen with a wound VAC. Postoperatively, the patient's urinary output has greatly improved. She does have a metabolic acidosis that has been resolving. Lactic acid has improved today. We will closely continue to monitor her urinary output. OBJECTIVE: VITAL SIGNS: Temperature 97.8, pulse 104, respirations 16 on the ventilator, oxygen saturation 95% on ventilator, blood pressure 131/44. GENERAL: Ill-appearing elderly female, lying in bed, intubated and sedated with no signs of acute distress. PULMONARY: Equal chest rise and fall. No signs of acute respiratory distress. CARDIAC: Irregular rate and rhythm. ABDOMEN: Soft, mildly distended. Wound VAC is in place with serosanguineous output in canister. EXTREMITIES: Gross motor and sensation intact. She has edema throughout her extremities, which is stable from yesterday. NEUROLOGIC: GCS is 11T. LABORATORY FINDINGS: There are no new laboratory findings to discuss. DIAGNOSTIC FINDINGS: There are no new diagnostic findings to discuss. ASSESSMENT: 1. Status post ischemic bowel with perforation, now postop day #0. 2. Diabetic ketoacidosis, resolved. 3. Atrial fibrillation with rapid ventricular response, now rate controlled. 4. Acute kidney injury, slightly worse this morning, however, improving this evening. 5. Thrombocytopenia, stable. 6. Acute postoperative respiratory failure. 7. Acute metabolic lactic acidosis, improving. 8. History of pancreatic cancer, currently on chemo and status post Whipple, diabetes, diverticulitis, gastroesophageal reflux disease, and hyperlipidemia. PLAN: Continue intubation and sedation overnight. Continue bicarb drip and TPN. Continue levo and vaso. Monitor urinary output closely. Goal urinary output is 40 mL an hour. We will repeat blood work in the morning, including an ABG and lactic acid. Job ID: [id number]
[2020-04-05] MEDS: Sodium Acetate 2 mEq/ml 40 MEQ, Sodium Chloride 30 MEQ, Potassium Chloride 20 MEQ, Pota... IV SCH (23:54)
[2020-04-06] MEDS: HUMULIN R 100 UNITS in Sodium Chloride 0.9% 100 ML IVPB SCH ×2 (03:09→15:19)
[2020-04-06] MEDS: Sodium Bicarbonate 150 MEQ in Dextrose 5% in Water 1,000 ML IV SCH ×2 (03:10→12:15)
[2020-04-06] MEDS: Acetaminophen 500 MG TAB PER TUBE SCH ×4 (04:16→20:28)
[2020-04-06] MEDS: Hydrocortisone Sod Succ/PF 100 mg/2 ml Vial IVP SCH ×4 (04:17→21:56)
[2020-04-06] MEDS: Piperacillin/Tazobactam 2.25 GM in Sodium Chloride 0.9% 100 ML IVPB SCH ×3 (05:06→21:59)
[2020-04-06 05:44] LABS: Hemoglobin 9.9 g/dL (12.0-16.0); Mean Corpuscular HGB CONC 32.4 g/dL (32.0-36.0); Mean Corpuscular Hemoglobin 29.9 pg (27.0-31.0); Mean Corpuscular Volume 92.2 fL (78.0-98.0); Mean Platelet Volume 14.5 fL (7.4-10.4); Platelet Count 11 thou/uL (130-400); RBC Distribution Width 14.1 % (11.5-14.5); Red Blood Cell (RBC) Count 3.32 mill/uL (4.20-5.40); White Blood Cell (WBC) Count 4.4 thou/uL (4.8-10.8)
[2020-04-06 05:52] LABS: Lactic Acid 6.2 mmol/L (0.5-2.2)
[2020-04-06 05:53] LABS: ALT (SGPT) 12 U/L (8-55); AST (SGOT) 21 U/L (5-34); Albumin 2.3 g/dL (3.4-4.8); Alkaline Phosphatase 52 U/L (40-110); Anion Gap 19 mmol/L (10-20); BUN (Urea Nitrogen) 66 mg/dL (9.8-20.1); Bilirubin, Total 1.7 mg/dL (0.2-1.2); Calc. Creatinine Clearance 28 mL/min (70-130); Calcium 7.8 mg/dL (7.8-10.44); Carbon Dioxide 22 mmol/L (23-31); Chloride 109 mmol/L (98-107); Estimated GFR-MDRD 22; Globulin 1.6 g/dL (2.4-3.5); Glucose 117 mg/dL (83-110); Magnesium 2.2 mg/dL (1.6-2.6); Potassium 3.7 mmol/L (3.5-5.1); Protein, Total 3.9 g/dL (6.0-8.3); Sodium 146 mmol/L (136-145)
[2020-04-06 05:54] LABS: Phosphorus 3.2 mg/dL (2.3-4.7)
[2020-04-06 06:12] LABS: Band 28 % (5-11); Hypochromia SLIGHT = 6-15 cells (100X) (0-5/hpf); Lymphocytes 26 % (21-51); MDiff Complete? YES; Metamyelocyte 2 % (0-0); Monocytes 24 % (0-10); Neutrophil 20 % (42-75); Nucleated RBC 3 % (0); Platelet Morphology Comment Appears Decreased; Target Cells SLIGHT = 2-5 cells (100X) (0-1/hpf)
--- NOTE | 2020-04-06 06:24 | PDOC.FM ---
- Subjective Subjective: Intubated and sedated. Does not respond to stimuli. - Objective MAR Reviewed: Yes Vital Signs & Weight: Vital Signs (12 hours) Temp Pulse Resp BP Pulse Ox 04/06/20 06:00 25 H 04/06/20 04:00 97.6 F 22 H 04/06/20 02:24 106 H 125/57 L 04/06/20 02:00 23 H 04/06/20 00:43 101 H 125/65 04/06/20 00:00 97.7 F 23 H 04/05/20 22:01 98 145/66 H 04/05/20 22:00 23 H 04/05/20 20:00 97.7 F 23 H 99 04/05/20 18:28 103 H 104/53 L Weight Admit Weight 78 kg Weight 85.3 kg Most Recent Monitor Data Heart Rate from ECG 98 NIBP 113/61 NIBP BP-Mean 78 Respiration from ECG 20 SpO2 94 I&O: 04/04/20 04/05/20 04/06/20 06:59 06:59 06:59 Intake Total 2198.9 4479 6073.1 Output Total 2335 2067 2908 Balance -136.1 2412 3165.1 Result Diagrams: 04/06/20 13:52 04/06/20 13:52 Phys Exam - Physical Examination Constitutional: NAD HEENT: sclera anicteric Neck: no JVD Respiratory: no wheezing, no rales, no rhonchi, clear to auscultation bilateral Cardiovascular: RRR, no significant murmur, no rub Gastrointestinal: soft Midline wound vac in place. Musculoskeletal: no edema, pulses present Skin: no rash, normal turgor Dx/Plan (1) HTN (hypertension) Code(s): I10 - ESSENTIAL (PRIMARY) HYPERTENSION Status: Acute (2) HLD (hyperlipidemia) Code(s): E78.5 - HYPERLIPIDEMIA, UNSPECIFIED Status: Acute (3) GERD (gastroesophageal reflux disease) Code(s): K21.9 - GASTRO-ESOPHAGEAL REFLUX DISEASE WITHOUT ESOPHAGITIS Status: Acute (4) Atrial fibrillation with rapid ventricular response Code(s): I48.91 - UNSPECIFIED ATRIAL FIBRILLATION Status: Acute (5) Thrombocytopenia Code(s): D69.6 - THROMBOCYTOPENIA, UNSPECIFIED Status: Acute (6) IDDM (insulin dependent diabetes mellitus) Code(s): UMT1038 - Status: Acute (7) Ischemia, bowel Code(s): K55.9 - VASCULAR DISORDER OF INTESTINE, UNSPECIFIED Status: Acute (8) Large bowel perforation Code(s): K63.1 - PERFORATION OF INTESTINE (NONTRAUMATIC) Status: Acute (9) Pancreatic cancer Status: Acute Qualifiers: Pancreatic malignancy location: unspecified Qualified Code(s): C25.9 - Malignant neoplasm of pancreas, unspecified - Plan Plan: Neuro: -Pain control and sedation with Fentanyl drip Cardiovascular: -Pt has CVP monitor. -On Levophed and Vasopressin for pressure support. - Atrial fibrillation with RVR - on amiodarone drip at 0.5. Rate has been low 100s. -Cardiology consulted. Appreciate recommendations. Respiratory: -Intubated and sedated s/p 3rd exploratory laparotomy 04/05/2020. -Mechanical ventilation: AC. Rate 20. TV 450mL. FiO2 60%. Peep 10. -On duonebs jerry q 6 hr. Gastrointestinal: -Patient has NG tube, Rectal tube, and TPN. -Stress ulcer ppx with pantoprazole 40mg IV daily. -s/p Ex lap from bowel perforation 2/ bowel ischemia: wound vac to abdomen draining clear, red-tinged fluid. -General surgery on board. Renal/: -Saldana in place. -Sodium bicarb gtt @ 100ml/hour. -Albumin gtt -Hypernatremic: Sodium 150 > 146 today. -oliguria is improving. -Acute kidney injury. Creatinine is improving 2.54 > 2.13. Hematologic: -Platelets continue to decline, 11 this morning. -HIT labs ordered. -On heparin gtt for perioperative clot prophylaxis. Per chart review, Dr. Vicente changed from Heparin gtt to Eliquis 2.5mg BID. -Recommend discontinuing heparin in light of profound thrombocytopenia. -Hematology/Oncology consulted, appreciate recommendations. -Patient has recent history of pancreatic cancer, s/p whipple procedure. Endocrine: -On insulin gtt @ 3u/hour -On hydrocortisone BID Infectious disease: -On Zosyn 2/2 bowel perforation and multiple intraabdominal surgeries. -On IV fluconazole. PPX: -Protonix 40mg daily. 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 Palliative Care team consulted to discuss goals of care. Sister Sameera is MPOA for patient, presents with advanced directive documents signed by patient. Family meeting held 04/01 with all patient's provider team in attendance, discussed plan of care moving forward. Sister Sameera requests frequent updates. Disposition: Inpatient CCU. Prognosis guarded. Addendum - Attending - Attending Attestation Date/Time: 04/06/20 1610 I personally evaluated the patient and discussed the management with Dr. Clay. I agree with the History, Examination, Assessment and Plan documented above with any addition or exceptions noted below. Switched from heparin to eliquis due to low platelets. patient still responds to verbal stimuli off sedation. Will discuss with mPOA later today to discuss goals of care going forward. her overall prognosis is guarded.
[2020-04-06] MEDS ORDERED: LYTES IN TPN IVPB PRN (06:46)
[2020-04-06 07:20] LABS: Base Excess (BEa) -1.8 mEq/L (-2.0 to +3.0); CO2 Tension 39.1 mmHg (35.0-45.0); Calcium, Ionized (arterial) 1.09 mmol/L (1.12-1.30); Carboxyhemoglobin (COHb) 0.1 gm% (0.0-3.0); Hemoglobin (Hb) 10.3 g/dL (12.0-16.0); O2 Tension (PaO2), arterial 61.5 mmHg (> 60.0); Potassium - ABG Lab 3.76 mmol/L (3.70-5.30); pH, Arterial 7.39 (7.35-7.45)
[2020-04-06 07:25] LABS: Puncture Site LINR
[2020-04-06 07:26] LABS: ALV-art Gradient 317.425 (0-20)
[2020-04-06] MEDS: Heparin 25,000 units/D5W 500 ML IVPB SCH (07:57)
[2020-04-06] MEDS: Vasopressin 20 UNIT, Admixture Fee 1 EACH in Sodium Chloride 0.9% 50 ML IV SCH (08:32)
[2020-04-06] MEDS: Pantoprazole 40 MG VIAL IVP SCH (08:33)
[2020-04-06] MEDS: Saccharomyces boulardii 250 MG CAP PO SCH (08:33)
[2020-04-06] MEDS: Amiodarone 450 MG in Dextrose 5% in Water 250 ML IVPB SCH ×2 (08:33→22:39)
--- NOTE | 2020-04-06 08:44 | RAD ---
RADIOGRAPH CHEST 1 VIEW: Date: 04/06/2020 Time: 4:18 a.m. HISTORY: An 79-year-old female status post intubation for respiratory failure. COMPARISON: 04/05/2020, 6:01 a.m. FINDINGS: The endotracheal tube has been replaced, with distal tip in the mid thoracic trachea. Dobbhoff feedi ng tube and esophagogastric tube, as well as right IJ implantable vascular access port, remain. No c ardiomegaly. Patchy mixed interstitial and alveolar infiltrates in the bilateral mid and lower lung zones. The ones in the mid lung zones involving upper lobes, have worsened, especially in the left p erihilar upper lobe. No pneumothorax. Probable small bilateral pleural effusions. IMPRESSION: 1. Interval worsening of bilateral infiltrates consistent with worsening of pneumonia. 2. Interval re-intubation with endotracheal tube. JORI [] POS: ERICKA
[2020-04-06] MEDS ORDERED: Calcium Chloride 1 GM/10 ML Abboject SYRINGE IVP SCH (09:00)
[2020-04-06] MEDS ORDERED: Calcium Chloride 13.6 MEQ in Sodium Chloride 0.9% 100 ML IVPB SCH ×2 (09:30→16:30)
[2020-04-06] MEDS: Apixaban 2.5 MG TAB PO SCH ×2 (10:29→20:29)
[2020-04-06 10:55] LABS: Lactic Acid 5.9 mmol/L (0.5-2.2)
[2020-04-06 14:24] LABS: Hemoglobin 9.5 g/dL (12.0-16.0); Mean Corpuscular Hemoglobin 30.5 pg (27.0-31.0); Mean Corpuscular Volume 92.5 fL (78.0-98.0); Mean Platelet Volume 13.4 fL (7.4-10.4); Platelet Count 20 thou/uL (130-400); RBC Distribution Width 14.1 % (11.5-14.5); Red Blood Cell (RBC) Count 3.11 mill/uL (4.20-5.40)
[2020-04-06 14:29] LABS: Phosphorus 3.1 mg/dL (2.3-4.7)
[2020-04-06 14:31] LABS: Anion Gap 19 mmol/L (10-20); BUN (Urea Nitrogen) 65 mg/dL (9.8-20.1); Calc. Creatinine Clearance 28 mL/min (70-130); Calcium 8.1 mg/dL (7.8-10.44); Carbon Dioxide 21 mmol/L (23-31); Chloride 104 mmol/L (98-107); Estimated GFR-MDRD 23; Glucose 234 mg/dL (83-110); Magnesium 1.9 mg/dL (1.6-2.6); Potassium 3.4 mmol/L (3.5-5.1); Sodium 141 mmol/L (136-145)
[2020-04-06 14:37] LABS: Lactic Acid 7.3 mmol/L (0.5-2.2)
[2020-04-06 14:43] LABS: Band 31 % (5-11); Burr Cells SLIGHT = 2-5 cells (100X) (0-1/hpf); Large Platelets SLIGHT; Lymphocytes 16 % (21-51); MDiff Complete? YES; Metamyelocyte 2 % (0-0); Monocytes 22 % (0-10); Neutrophil 28 % (42-75); Nucleated RBC 7 % (0); Ovalocytes SLIGHT = 2-5 cells (100X) (0-1/hpf); Platelet Morphology Comment Appears Decreased; Poikilocytosis SLIGHT = 6-15 cells (100X) (0-5/hpf); Polychromasia SLIGHT = 2-3 cells (100X) (0-2/hpf); Reactive Lymphocytes 1 % (0-10); Target Cells MODERATE= 6-15 cells (100X) (0-1/hpf); White Blood Cell (WBC) Count 7.9 thou/uL (4.8-10.8)
--- NOTE | 2020-04-06 14:47 | PRG ---
DATE OF SERVICE: 04/06/2020 SUBJECTIVE: Ms. Miramontes's status has worsened. She has required more pressor support. She is currently on Levophed and vasopressin. These were started overnight. She continues to be intubated and sedated. Chest x-ray today is also suggesting worsening of bilateral infiltrates when compared to previous chest x-ray. OBJECTIVE: VITAL SIGNS: Blood pressure 120/67, pulse 97, temperature afebrile. LUNGS: Rhonchi and rales bilaterally. HEART: Irregularly regular. ABDOMEN: Slightly distended. No bowel sounds present. EXTREMITIES: No edema. PERTINENT LABORATORY DATA: Platelet count 11,000, hemoglobin 9.9, hematocrit 30.6. IMPRESSION: 1. Respiratory failure. 2. Recent small-bowel perforation, status post laparoscopic cholecystectomy with re-exploration. 3. Atrial fibrillation. 4. Likely septic shock requiring pressor support. 5. History of pancreatic cancer. RECOMMENDATIONS: Presently, her heart rate has been stable throughout her current clinical course. At this point, we will continue with resuscitation measures that would include pressor support with vasopressin and Levophed. Heart rate appears stable. Avoid anticoagulation therapy due to low platelet count. Prognosis appears guarded. Job ID: [id number]
--- NOTE | 2020-04-06 15:38 | PDOC.EVN ---
Event Note - Event Note Event Note: Spoke with Sister Sameera TRINH. We discussed the prognosis of Sister Rohit and were able to facetime so that she could see the situation. We reviewed her advance directives and what her wishes were. Sister Sameera is in agreement that aggressive resuscitative measures are not what Sister Rohit would have wanted. At this time she wishes to change her code status to DNAR. We will discuss again later in the week mcc care goals if patient is not improving. Mak MONROE PGY 2
[2020-04-06 15:55] LABS: Actual Bicarbonate (HCO3v) 26 mEq/L (22-28); Base Excess -0.3 mEq/L (-2.0 to +3.0); Calcium, Ionized (venous) 1.11 mmol/L (1.16-1.32); Chloride (ABG LAB) 102 mmol/L (98-106); Hemoglobin (Hb) 9.4 g/dL (11.7-16.1); Potassium - ABG Lab 2.95 mmol/L (3.70-5.30); Sodium 140.5 mmol/L (133-146); pH (venous) 7.33 (7.32-7.43)
[2020-04-06] MEDS: Albumin 25% 25 GM/100 ML BOT IVPB SCH ×2 (16:15→21:55)
--- NOTE | 2020-04-06 16:22 | PRG ---
DATE OF SERVICE: 04/06/2020 SUBJECTIVE: Ms. Miramontes is an 79-year-old woman, status post exploratory laparotomy and partial small bowel resection for ischemic bowel necrosis. The patient was admitted with neutropenic septic shock. Overnight, required large volume fluid resuscitation as well as vasopressor and inotropic support. She remains sedated on mechanical ventilator support. Urinary output has improved this morning. Vasopressor support has been deescalated. OBJECTIVE: VITAL SIGNS: Include blood pressure 118/59, pulse 108, better rate controlled, though still in atrial fibrillation. LUNGS: Reveal scattered rhonchi. Breathing regular and nonlabored. ABDOMEN: Soft and nondistended. Wound VAC returns large amount of serous fluid. NEUROLOGIC: Reveals no focal deficits present. LABORATORY FINDINGS: Today include CBC with 4400 white blood cells, hemoglobin and hematocrit 9.9 and 30.6 respectively. Platelet count 11,000. Arterial blood gas includes pH 7.39, pCO2 of 39, pO2 of 61, base excess -1.8, ionized calcium 1.09. Metabolic profile includes sodium 146, potassium 3.7, chloride is 109, bicarb is 22, BUN is 66, creatinine is 2.13, glucose is 117, lactic acid is 5.9, magnesium is 1.9, and phosphorus is 3.1. IMPRESSION: 1. Acute septic shock secondary to ischemic bowel necrosis, status post exploratory laparotomy and partial small bowel resection. 2. Acute respiratory failure, stable. 3. Acute kidney injury, resolving. 4. Acute hypocalcemia. 5. Acute hypokalemia. 6. Thrombocytopenia, on heparin infusion. 7. Resolving acute neutropenia. 8. Lowwo-rg-bapmwra anemia. PLAN: 1. Continue with current fluid resuscitation and deescalate vasopressor support as blood pressure tolerates. 2. Continue with full mechanical ventilatory support until the patient is hemodynamically stable. 3. Correct abnormal electrolytes. 4. We will discontinue heparin infusion and start Eliquis p.o. 5. We will start Precedex for better sedation and to decrease work of breathing and minimize oxygen consumption. TOTAL CRITICAL CARE TIME: 40 minutes. Job ID: [id number]
[2020-04-06] MEDS: fentaNYL Citrate/PF 2,000 MCG in Sodium Chloride 0.9% 60 ML IV SCH (16:27)
[2020-04-06] MEDS ORDERED: Lactated Ringer's 1,000 ML IV SCH (16:30)
[2020-04-06] MEDS ORDERED: Potassium Chloride 40 MEQ in Sodium Chloride 0.9% 250 ML 250 ML IVPB SCH (16:30)
[2020-04-06] MEDS ORDERED: Vancomycin 1.5 GRAM/300 ML BAG 1.5 GM in Premix Bag 1 BAG IVPB SCH (17:30)
[2020-04-06 19:17] LABS: Anion Gap 19 mmol/L (10-20); BUN (Urea Nitrogen) 64 mg/dL (9.8-20.1); Calc. Creatinine Clearance 31 mL/min (70-130); Calcium 8.2 mg/dL (7.8-10.44); Carbon Dioxide 24 mmol/L (23-31); Chloride 104 mmol/L (98-107); Estimated GFR-MDRD 25; Glucose 143 mg/dL (83-110); Magnesium 1.8 mg/dL (1.6-2.6); Phosphorus 2.7 mg/dL (2.3-4.7); Potassium 3.5 mmol/L (3.5-5.1); Sodium 143 mmol/L (136-145)
[2020-04-06 19:18] LABS: Lactic Acid 6.7 mmol/L (0.5-2.2)
[2020-04-06] MEDS ORDERED: Potassium Phosphate 30 MMOL in Sodium Chloride 0.9% 500 ML IVPB SCH (20:15)
[2020-04-06] MEDS ORDERED: Magnesium 2 GM/50 ML 2 GM in Premix Bag 1 BAG IVPB SCH (20:15)
[2020-04-06 20:42] LABS: Actual Bicarbonate (HCO3v) 24 mEq/L (22-28); Base Excess -1.6 mEq/L (-2.0 to +3.0); Chloride (ABG LAB) 102 mmol/L (98-106); Hemoglobin (Hb) 9.6 g/dL (11.7-16.1); Potassium - ABG Lab 3.39 mmol/L (3.70-5.30); Sodium 139.2 mmol/L (133-146); pH (venous) 7.35 (7.32-7.43)
[2020-04-06] MEDS ORDERED: Fluconazole In NaCl,Iso-Osm 200 MG in Premix Bag 1 BAG IVPB SCH (21:00)
[2020-04-06] MEDS: metroNIDAZOLE 500 MG in Premix Bag 1 BAG IVPB SCH (21:58)
[2020-04-06] MEDS: CALCIUM GLUCONATE IV SCH (22:23)
[2020-04-06] MEDS: POTASSIUM PHOSPHATE IV SCH (22:23)
[2020-04-06] MEDS: [UNRECOGNIZED DRUG - OTHER] IV SCH (22:23)
[2020-04-06] MEDS: POTASSIUM ACETATE IV SCH (22:23)
[2020-04-06] MEDS: Lactated Ringer's 1,000 ML IV SCH (23:32)
--- NOTE | 2020-04-07 00:10 | PRG ---
DATE OF SERVICE: 04/06/2020 SUBJECTIVE: The patient was seen this evening during rounds. She was in the ICU, intubated, and sedated with no signs of acute distress. Nursing reported previously vaso was discontinued, the patient became hypotensive. Subsequently, vaso has been started, and we have started a wean on the levo drip. The patient's urinary output has been meeting her goals with intermittent one time low values each hour. Her systolic blood pressures have been in the one teens to 120s. Heart rate is 80s to 90s. She has been afebrile. She is on the ventilator. She appears comfortable. The patient did receive 500 mL of LR. Her IV fluids have been changed to LR at 100 an hour, and she is receiving potassium phos as well as magnesium this evening per orders of Dr. Vicente. The patient continues to be on Zosyn and fluconazole. She is also on TPN. OBJECTIVE: VITAL SIGNS: Temperature 97.6, pulse 91, respirations 20 on the ventilator, oxygen saturation 98% on the ventilator, and blood pressure 116/65. GENERAL: Well-appearing elderly female, intubated and sedated in ICU. No signs of acute distress. PULMONARY: Equal chest rise and fall. Clear breath sounds bilaterally. No signs of acute respiratory distress. CARDIAC: Irregular rhythm; however, the patient is no longer tachycardic. GI: Abdomen is soft, mildly tender to palpation. She has a wound VAC that is in place and putting out a significant amount of serous output into the canister. EXTREMITIES: Swollen throughout. LABORATORY FINDINGS: Labs completed this afternoon. Had a white count 7.9, hemoglobin 9.5, hematocrit 28.8, platelets 20. Sodium 143, potassium 5.3, chloride 102, bicarb 24, BUN 64, creatinine 1.93, lactic acid 6.7 from 7.3, phosphorus 2.7, magnesium 1.8. ASSESSMENT: 1. Postoperative day #1, status post exploratory laparotomy, abdominal washout, and temporary abdominal closure with wound VAC for ischemic bowel perforation. 2. Diabetic ketoacidosis, resolved. 3. Atrial fibrillation with rapid ventricular response, rate now controlled. 4. Acute kidney injury, improving. 5. Thrombocytopenia, improving. 6. Acute respiratory failure due to sepsis, stable. 7. Acute severe septic shock, improving. 8. Acute hypokalemia and hypomagnesemia, receiving replacement. 9. Uvqhj-zu-kbkrwig anemia. PLAN: Continue intubation and sedation overnight in the CCU. We will leave the vaso drip on and continue to wean the levo drip. Monitoring for a MAP goal of 70 or greater. Continue to closely monitor urinary output. Continue antibiotics. Repeat blood work in the morning. Job ID: [id number]
[2020-04-07] MEDS: Acetaminophen 500 MG TAB PER TUBE SCH ×4 (03:20→21:08)
[2020-04-07] MEDS: Hydrocortisone Sod Succ/PF 100 mg/2 ml Vial IVP SCH ×4 (03:21→21:09)
[2020-04-07] MEDS: Vasopressin 20 UNIT, Admixture Fee 1 EACH in Sodium Chloride 0.9% 50 ML IV SCH (03:21)
[2020-04-07] MEDS: Albumin 25% 25 GM/100 ML BOT IVPB SCH ×3 (03:21→16:09)
[2020-04-07 04:22] LABS: Hemoglobin 9.5 g/dL (12.0-16.0); Mean Corpuscular HGB CONC 32.6 g/dL (32.0-36.0); Mean Corpuscular Hemoglobin 30.1 pg (27.0-31.0); Mean Corpuscular Volume 92.3 fL (78.0-98.0); Mean Platelet Volume 15.2 fL (7.4-10.4); Platelet Count 11 thou/uL (130-400); RBC Distribution Width 14.2 % (11.5-14.5); Red Blood Cell (RBC) Count 3.17 mill/uL (4.20-5.40); White Blood Cell (WBC) Count 9.7 thou/uL (4.8-10.8)
[2020-04-07 04:25] LABS: Band 23 % (5-11); Lymphocytes 9 % (21-51); MDiff Complete? YES; Metamyelocyte 2 % (0-0); Monocytes 7 % (0-10); Neutrophil 59 % (42-75); Nucleated RBC 5 % (0); Platelet Morphology Comment Appears Decreased
[2020-04-07 04:26] LABS: Lactic Acid 5.9 mmol/L (0.5-2.2)
[2020-04-07 04:27] LABS: ALT (SGPT) 10 U/L (8-55); AST (SGOT) 16 U/L (5-34); Albumin 3.4 g/dL (3.4-4.8); Alkaline Phosphatase 62 U/L (40-110); Anion Gap 20 mmol/L (10-20); BUN (Urea Nitrogen) 69 mg/dL (9.8-20.1); Bilirubin, Total 2.8 mg/dL (0.2-1.2); Calc. Creatinine Clearance 31 mL/min (70-130); Calcium 7.8 mg/dL (7.8-10.44); Carbon Dioxide 23 mmol/L (23-31); Chloride 102 mmol/L (98-107); Estimated GFR-MDRD 26; Globulin 1.1 g/dL (2.4-3.5); Glucose 147 mg/dL (83-110); Potassium 3.7 mmol/L (3.5-5.1); Protein, Total 4.5 g/dL (6.0-8.3); Sodium 141 mmol/L (136-145)
[2020-04-07 04:31] LABS: Magnesium 2.1 mg/dL (1.6-2.6); Phosphorus 5.2 mg/dL (2.3-4.7)
--- NOTE | 2020-04-07 05:45 | PDOC.FM ---
- Subjective Subjective: Intubated. On sedation break. Awake and responsive. Answers yes/no. States she is uncomfortable. Spoke with MPOA, Sister Sameera, and reviewed advanced directives yesterday. The decision was made to change her to DNAR. Sister Sameera expressed wishes to not pursue further surgeries. We will revisit snf goals and prognosis at the end of the week pending clinical course. - Objective MAR Reviewed: Yes Vital Signs & Weight: Vital Signs (12 hours) Temp Pulse Resp Pulse Ox 04/07/20 04:19 85 04/07/20 04:00 21 H 04/07/20 02:00 20 04/07/20 00:41 86 20 97 04/07/20 00:38 88 04/07/20 00:00 20 04/06/20 22:00 20 04/06/20 20:26 73 04/06/20 20:00 97.6 F 21 H 97 04/06/20 18:00 24 H Weight Admit Weight 78 kg Weight 85.3 kg Most Recent Monitor Data Heart Rate from ECG 88 NIBP 160/89 NIBP BP-Mean 112 Respiration from ECG 21 SpO2 96 I&O: 04/05/20 04/06/20 04/07/20 06:59 06:59 06:59 Intake Total 4479 6073.1 4712.6 Output Total 2067 2908 6140 Balance 2412 3165.1 -1424.4 Result Diagrams: 04/07/20 03:45 04/07/20 12:33 Phys Exam - Physical Examination Constitutional: NAD (Awake and responsive.) HEENT: PERRLA Dry mucus membranes. Cracked lips. Neck: no JVD Respiratory: no wheezing, clear to auscultation bilateral Mechanical ventilation sounds Cardiovascular: RRR, no significant murmur Gastrointestinal: soft, non-tender Musculoskeletal: no edema Neurological: non-focal Psychiatric: normal affect Skin: no rash, normal turgor Dx/Plan (1) HTN (hypertension) Code(s): I10 - ESSENTIAL (PRIMARY) HYPERTENSION Status: Acute (2) HLD (hyperlipidemia) Code(s): E78.5 - HYPERLIPIDEMIA, UNSPECIFIED Status: Acute (3) GERD (gastroesophageal reflux disease) Code(s): K21.9 - GASTRO-ESOPHAGEAL REFLUX DISEASE WITHOUT ESOPHAGITIS Status: Acute (4) Atrial fibrillation with rapid ventricular response Code(s): I48.91 - UNSPECIFIED ATRIAL FIBRILLATION Status: Acute (5) Thrombocytopenia Code(s): D69.6 - THROMBOCYTOPENIA, UNSPECIFIED Status: Acute (6) IDDM (insulin dependent diabetes mellitus) Code(s): KVN2879 - Status: Acute (7) Ischemia, bowel Code(s): K55.9 - VASCULAR DISORDER OF INTESTINE, UNSPECIFIED Status: Acute (8) Large bowel perforation Code(s): K63.1 - PERFORATION OF INTESTINE (NONTRAUMATIC) Status: Acute (9) Pancreatic cancer Status: Acute Qualifiers: Pancreatic malignancy location: unspecified Qualified Code(s): C25.9 - Malignant neoplasm of pancreas, unspecified - Plan Plan: Neuro: -Sedation with Precedex, weaning fentanyl drip. Cardiovascular: -On Levophed and Vasopressin for pressure support. - Atrial fibrillation with RVR - on amiodarone drip at 0.5. Rate has been low 100s. -Cardiology consulted. Appreciate recommendations. Respiratory: -Intubated and sedated s/p most recent exploratory laparotomy 04/05/2020. -Mechanical ventilation. -On duonebs jerry q 6 hr. Gastrointestinal: -Patient has NG tube, Rectal tube, and TPN. -Stress ulcer ppx with pantoprazole 40mg IV daily. -s/p Ex lap from bowel perforation 2/2 bowel ischemia: wound vac to abdomen draining clear, yellow-tinged fluid. -General surgery on board. Renal/: -Saldana in place. -On LR @ 100ml/hour. -Albumin 25% -Hypernatremic: Sodium 150 > 146 today. -Oliguria is improving. -Acute kidney injury. Creatinine is improving. Hematologic: -She continues to be thrombocytopenic, platelets 11 this morning. -HIT labs ordered. -Eliquis 2.5mg BID. -Hematology/Oncology consulted, appreciate recommendations. -Patient has recent history of pancreatic cancer, s/p whipple procedure. On Granix. Endocrine: -On insulin gtt @ 3u/hour -On hydrocortisone BID for adrenal insufficiency. Infectious disease: -On Zosyn 2/2 bowel perforation and multiple intraabdominal surgeries. -On IV fluconazole. PPX: -Protonix 40mg daily. -Eliquis 2.5mg BID. 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 Palliative Care team consulted to discuss goals of care. Sister Sameera is MPOA for patient, presents with advanced directive documents signed by patient. Family meeting held 04/01 with all patient's provider team in attendance, discussed plan of care moving forward. Sister Sameera requests frequent updates. 04/06 made patient DNAR and discussed not pursuing further surgeries. Will revisit with PC team goals of care. Disposition: Inpatient CCU. Prognosis guarded. Addendum - Attending - Attending Attestation Date/Time: 04/07/20 3011 I personally evaluated the patient and discussed the management with Dr. Clay. I agree with the History, Examination, Assessment and Plan documented above with any addition or exceptions noted below. washout and closure by gen surg today. remains intubated.
[2020-04-07] MEDS: Piperacillin/Tazobactam 2.25 GM in Sodium Chloride 0.9% 100 ML IVPB SCH ×3 (06:02→21:09)
[2020-04-07] MEDS: metroNIDAZOLE 500 MG in Premix Bag 1 BAG IVPB SCH ×3 (06:02→21:12)
[2020-04-07 07:28] LABS: Actual Bicarbonate (HCO3a) 22.4 mEq/L (22-28); Base Excess (BEa) -3.4 mEq/L (-2.0 to +3.0); CO2 Tension 43.6 mmHg (35.0-45.0); Calcium, Ionized (arterial) 1.06 mmol/L (1.12-1.30); Carboxyhemoglobin (COHb) 0.3 gm% (0.0-3.0); Hemoglobin (Hb) 9.3 g/dL (12.0-16.0); O2 Tension (PaO2), arterial 72.3 mmHg (> 60.0); Potassium - ABG Lab 3.89 mmol/L (3.70-5.30); Puncture Site ALINE; pH, Arterial 7.33 (7.35-7.45)
[2020-04-07] MEDS: HUMULIN R 100 UNITS in Sodium Chloride 0.9% 100 ML IVPB SCH (07:36)
--- NOTE | 2020-04-07 09:12 | RAD ---
RADIOGRAPH CHEST 1 VIEW: DATE: 04/07/2020 TIME: 9:06 AM HISTORY: 79-year-old female with respiratory failure COMPARISON: 04/06/2020 FINDINGS: No change in life support lines. Diffuse severe bilateral alveolar infiltrates remain. Lung apices are relatively spared. These alveolar infiltrates have worsened at the lung bases, such that there is a greater degree of si lhouetting of the bilateral hemidiaphragms. No cardiomegaly. IMPRESSION: 1. Severe bilateral infiltrates consistent with pneumonia. 2. Interval worsening of aeration of the lung bases.
[2020-04-07] MEDS: Pantoprazole 40 MG VIAL IVP SCH (09:56)
[2020-04-07] MEDS: Lactated Ringer's 1,000 ML IV SCH ×2 (09:57→12:30)
[2020-04-07] MEDS: Apixaban 2.5 MG TAB PO SCH ×2 (09:58→21:08)
[2020-04-07] MEDS: Saccharomyces boulardii 250 MG CAP PO SCH (09:58)
[2020-04-07] MEDS ORDERED: Fentanyl 100 MCG/2 ML VIAL ONE ×2 (10:15)
[2020-04-07] MEDS ORDERED: Rocuronium Bromide 10 MG/ML (10ML VIAL) ONE (10:42)
--- NOTE | 2020-04-07 11:15 | PDOC.MOPN ---
Interval History: Remains on vent, sedated. - Vital Signs Vital Signs: Vital Signs (12 hours) Temp Pulse Resp BP Pulse Ox 04/07/20 08:00 98 04/07/20 07:40 86 104/44 L 04/07/20 07:00 97.7 F 04/07/20 06:00 22 H 04/07/20 05:00 96.4 F L 04/07/20 04:19 85 04/07/20 04:00 21 H 04/07/20 02:00 20 04/07/20 01:15 96.3 F L 04/07/20 00:41 86 20 97 04/07/20 00:38 88 04/07/20 00:00 20 Weight Admit Weight 171 lb 15.369 oz Weight 208 lb 5.389 oz Most Recent Monitor Data Heart Rate from ECG 94 NIBP 112/72 NIBP BP-Mean 85 Respiration from ECG 24 SpO2 99 - Physical Exam General: No acute distress Lungs: Other (intubated) Cardiovascular: Regular rate Abdomen: Other Neurological: Other (sedated) - Labs Result Diagrams: 04/07/20 03:45 04/07/20 03:45 Lab results: Laboratory Results - last 24 hr 04/07/20 07:22: Specimen Type ARTERIAL, Puncture Site JAY, Bicarbonate Actual 22.4, ABG pH 7.33 L, ABG pCO2 43.6, ABG pO2 72.3 H, ABG O2 Sat (Measured) 93.8 L , ABG O2 Content 12.3 L, ABG Base Excess -3.4 L, ABG Hematocrit 27.0 L, ABG Hemoglobin 9.3 L, ABG Oxyhemoglobin 93.2 L, ABG Carboxyhemoglobin 0.3, ABG Methemoglobin 0.30, ABG Deoxyhemoglobin 6.2 H, Cj Test Not Reportable, A-a O2 Gradient 301.000 H, Ionized Calcium 1.06 L, Mode of Support AC, Mechanical Rate 20, Inspired O2 60, Tidal Volume 450, PEEP or CPAP 10.0, Sodium 136, Potassium 3.89, Chloride 102 04/07/20 03:45: Phosphorus 5.2 H, Magnesium 2.1 04/07/20 03:45: APTT 43.6 H 04/07/20 03:45: Sodium 141, Potassium 3.7, Chloride 102, Carbon Dioxide 23, Anion Gap 20, BUN 69 H, Creatinine 1.89 H, Estimated GFR (MDRD) 26, Glucose 147 H, Calcium 7.8, Total Bilirubin 2.8 H, AST 16, ALT 10, Alkaline Phosphatase 62, Serum Total Protein 4.5 L, Albumin 3.4, Globulin 1.1 L, Albumin/Globulin Ratio 3.1 H 04/07/20 03:45: WBC 9.7, RBC 3.17 L, Hgb 9.5 L, Hct 29.3 L, MCV 92.3, MCH 30.1, MCHC 32.6, RDW 14.2, Plt Count 11 L*, MPV 15.2 H, Neutrophils % (Manual) 59, Band Neuts % (Manual) 23 H, Lymphocytes % (Manual) 9 L, Monocytes % (Manual) 7, Metamyelocytes % (Man) 2 H, Lymphocytes # Not Reportable, Nucleated RBCs # (Man ) 5 H, Plt Morphology Comment Appears Decreased L 04/07/20 03:45: Lactic Acid 5.9 H* 04/06/20 20:35: VBG pH 7.35, VBG pCO2 45.0, VBG pO2 37.5, VBG HCO3 24, VBG O2 Sat (Karen) 68.6, VBG Base Excess -1.6, VBG Hematocrit 28.0 L, VBG Hemoglobin 9.6 L, VBG Carboxyhemoglobin 0.5, VBG Methemoglobin 0.3, VBG Ionized Calcium 1.10 L, Whole Bld Sodium 139.2, Whole Bld Potassium 3.39 L, Whole Bld Chloride 102 04/06/20 18:45: Lactic Acid 6.7 H* 04/06/20 18:45: Sodium 143, Potassium 3.5, Chloride 104, Carbon Dioxide 24, Anion Gap 19, BUN 64 H, Creatinine 1.93 H, Estimated GFR (MDRD) 25, Glucose 143 H, Calcium 8.2, Phosphorus 2.7, Magnesium 1.8 04/06/20 17:07: POC Glucose 183 H 04/06/20 16:17: POC Glucose 221 H 04/06/20 15:50: VBG pH 7.33, VBG pCO2 50.4, VBG pO2 34.7 L, VBG HCO3 26, VBG O2 Sat (Karen) 66.9, VBG Base Excess -0.3, VBG Hematocrit 28.0 L, VBG Hemoglobin 9.4 L, VBG Carboxyhemoglobin 0.5, VBG Methemoglobin 0.3, VBG Ionized Calcium 1.11 L, Whole Bld Sodium 140.5, Whole Bld Potassium 2.95 L, Whole Bld Chloride 102 04/06/20 15:03: POC Glucose 228 H 04/06/20 14:22: POC Glucose 236 H 04/06/20 13:52: Lactic Acid 7.3 H* 04/06/20 13:52: Phosphorus 3.1 04/06/20 13:52: WBC 7.9, RBC 3.11 L, Hgb 9.5 L, Hct 28.8 L, MCV 92.5, MCH 30.5, MCHC 33.0, RDW 14.1, Plt Count 20 L*, MPV 13.4 H, Neutrophils % (Manual) 28 L, Band Neuts % (Manual) 31 H, Lymphocytes % (Manual) 16 L, Reactive Lymphs % 1, Monocytes % (Manual) 22 H, Metamyelocytes % (Man) 2 H, Lymphocytes # Not Reportable, Nucleated RBCs # (Man) 7 H, Large Platelets SLIGHT, Plt Morphology Comment Appears Decreased L, Polychromasia SLIGHT = 2-3 cells, Poikilocytosis SLIGHT = 6-15 cells, Target Cells MODERATE= 6-15 cells H, Ovalocytes SLIGHT = 2- 5 cells, [place] Cells SLIGHT = 2-5 cells 04/06/20 13:52: Sodium 141, Potassium 3.4 L, Chloride 104, Carbon Dioxide 21 L, Anion Gap 19, BUN 65 H, Creatinine 2.09 H, Estimated GFR (MDRD) 23, Glucose 234 H, Calcium 8.1, Magnesium 1.9 04/06/20 13:52: Random Vancomycin 15.0 04/06/20 13:07: POC Glucose 251 H 04/06/20 12:11: POC Glucose 254 H 04/06/20 11:15: POC Glucose 260 H Status: lab reviewed by me A/P - Problem (1) Large bowel perforation Current Visit: Yes Code(s): K63.1 - PERFORATION OF INTESTINE (NONTRAUMATIC) Status: Acute (2) Pancreatic cancer Current Visit: Yes Status: Acute Qualifiers: Pancreatic malignancy location: unspecified Qualified Code(s): C25.9 - Malignant neoplasm of pancreas, unspecified - Plan Plan: Patient going back to OR for wound closure now DNAR appreciate surgical assistance.
[2020-04-07 13:02] LABS: Anion Gap 22 mmol/L (10-20); BUN (Urea Nitrogen) 69 mg/dL (9.8-20.1); Calc. Creatinine Clearance 35 mL/min (70-130); Calcium 7.5 mg/dL (7.8-10.44); Carbon Dioxide 19 mmol/L (23-31); Chloride 103 mmol/L (98-107); Estimated GFR-MDRD 26; Glucose 183 mg/dL (83-110); Phosphorus 5.3 mg/dL (2.3-4.7); Potassium 4.6 mmol/L (3.5-5.1); Sodium 139 mmol/L (136-145)
[2020-04-07 13:10] LABS: Lactic Acid 8.9 mmol/L (0.5-2.2)
[2020-04-07] MEDS ORDERED: Calcium Chloride 1 GM/10 ML Abboject SYRINGE ONE (13:14)
[2020-04-07] MEDS ORDERED: Calcium Chloride 1 GM/10 ML Abboject SYRINGE IVP SCH (13:15)
[2020-04-07 13:42] LABS: Actual Bicarbonate (HCO3a) 17.6 mEq/L (22-28); Base Excess (BEa) -9.3 mEq/L (-2.0 to +3.0); CO2 Tension 42.7 mmHg (35.0-45.0); Calcium, Ionized (arterial) 1.19 mmol/L (1.12-1.30); Carboxyhemoglobin (COHb) 0.3 gm% (0.0-3.0); Hemoglobin (Hb) 10.1 g/dL (12.0-16.0); O2 Tension (PaO2), arterial 68.2 mmHg (> 60.0); Potassium - ABG Lab 3.97 mmol/L (3.70-5.30)
[2020-04-07 13:43] LABS: ALV-art Gradient 448.825 (0-20); Puncture Site ALINE; pH, Arterial 7.23 (7.35-7.45)
--- NOTE | 2020-04-07 13:54 | PRG ---
DATE OF SERVICE: 04/07/2020 SUBJECTIVE: Ms. Miramontes is an 79-year-old woman who is status post multiple exploratory laparotomies with partial small-bowel resection, jejunal-jejunal anastomosis, and enterorrhaphy x1. She remains on mechanical ventilator support. She is requiring high FiO2 due to progressive hypoxemia. Overall, physiology seems to be improving. We are deescalating on vasopressor support. She has required no blood transfusions. She is having loose bowel movements and has been on bowel rest. She is on TPN. PHYSICAL EXAMINATION: VITAL SIGNS: This morning, on norepinephrine at 8 mcg/minute and vasopressin at 0.02 units/minute, include a blood pressure 96/50, pulse 92, respiratory rate 24 , maximum temperature in the last 24 hours is 97.7 degrees Fahrenheit, and oxygen saturation 94% on FiO2 of 70%. HEENT: Pupils are equal, round, reactive to light bilaterally. NECK: She has no jugular venous distention noted. HEART: Reveals irregular rate and rhythm, rate controlled. She remains on amiodarone at 0.5 mg/hour. Hemodynamic parameters include a CVP of 16, SVI 28, SVRI 1510, SVV 15%, and cardiac index 2.8. LUNGS: Reveal bibasilar rhonchi. Breathing regular and nonlabored. Peak airway pressure on the ventilator is 38. ABDOMEN: Soft and nondistended. Wound VAC returns moderate to large volume serous ascites. NEUROLOGIC: Reveals no focal deficits present. LABORATORY FINDINGS: Today include a CBC with 9700 white blood cells, hemoglobin and hematocrit are 9.5 and 29.3 respectively. Platelet count is 11,000, albeit stable. Metabolic profile; sodium 141, potassium is 3.7, chloride is 102, bicarb is 23, BUN is 69, creatinine is 1.89, glucose is 147, magnesium is 2.1, and phosphorus is 5.2. Arterial blood gas; pH 7.33, pCO2 is 44, PO2 is 72, base excess -3.4, ionized calcium 1.06. Lactic acid is 5.9, down from the high 7.3 yesterday. Chest x-ray today reveals worsening bilateral interstitial and alveolar infiltrates with minimum bilateral pleural effusions present. There is no pneumothorax present. IMPRESSION: 1. Acute hypoxemic respiratory failure secondary to acute respiratory distress syndrome. 2. Acute ischemic bowel necrosis, status post partial small bowel resection with primary jejunal-jejunal anastomosis and enterorrhaphy x1. 3. Acute kidney injury, improving. 4. Acute septic shock, resolving. 5. Acute hypokalemia. 6. Acute hypocalcemia. 7. Stable acute blood loss anemia. 8. Stable acute thrombocytopenia. 9. Resolved post chemotherapy neutropenia. PLAN: 1. The patient undergoes reoperative laparotomy today for abdominal washout and closure. 2. Correct abnormal electrolytes. 3. We will place the patient on pressure control ventilation with relative inverse I:E ratio. We will accept permissive hypercapnia to minimize risks for barotrauma. 4. We will continue to deescalate on vasopressor or inotropic support as the patient's hemodynamics permits. 5. We will discuss with the patient's family today and establish a plan for future care. Total critical care time is 40 minutes. Job ID: [id number] MTDD
--- NOTE | 2020-04-07 13:58 | OP ---
DATE OF PROCEDURE: 04/07/2020 PREOPERATIVE DIAGNOSES: 1. Ischemic bowel necrosis status post exploratory laparotomy and partial small-bowel resection. 2. Open abdomen. POSTOPERATIVE DIAGNOSES: 1. Ischemic bowel necrosis status post exploratory laparotomy and partial small-bowel resection. 2. Open abdomen. OPERATIONS PERFORMED: 1. Re-exploratory laparotomy. 2. Abdominal washout. 3. Fascia closure. 4. Wound VAC application. ANESTHESIA: General endotracheal. ESTIMATED BLOOD LOSS: Negligible. FLUIDS GIVEN: 300 mL of crystalloids. COUNTS: Sponge and instrument counts were verified as correct x2. COMPLICATIONS: None apparent at the time of operation. INDICATIONS FOR OPERATION: An 79-year-old woman previously underwent exploratory laparotomy with partial small-bowel resection for ischemic bowel necrosis. Ultimately, bowel continuity was re-established. The patient returns to the operating room today for another look. Findings are consistent with intact jejunojejunal anastomosis and intact previous enterorrhaphy. There is no gross evidence of ongoing ischemia. There is no gross purulence or bile staining in the peritoneal cavity. DESCRIPTION OF OPERATION: Informed consent obtained from the patient's power of prosecuting attorney. The patient was brought to the operating room and placed in supine position. Previous Saldana catheter was placed to bedside drain. Nasogastric tube was placed to wall suction. The external wound VAC dressing was removed and abdomen was sterilely prepped and draped in the usual fashion. Wound VAC sponge and internal dressings were removed. Peritoneal cavity was entered and explored in all 4 quadrants. There was no gross purulence within the peritoneal cavity. There was moderate amount of serous ascites, was evacuated with suction. Small bowel was run from the ligament of Treitz down to the ileocecal junction, finding no acute pathology. Specifically, it was taken the previous jejunal-jejunal anastomosis remain intact and viable. The previous small-bowel repair site was also viable. The large intestine was inspected from the cecum through the ascending, transverse, descending, sigmoid colon, and rectum. No active pathology present. Finding no other pathology, exploration was terminated at this juncture. All sponges and instruments were removed and accounted for. Abdominal cavity was irrigated with saline and excess irrigant fluid was evacuated using suction. Small bowel returned to normal anatomic location. Omentum was drawn over the viscera. The fascia was approximated in the midline using a running stitch of #1 single-stranded PDS. Subcutaneous tissue was irrigated with saline. I decided not to close the skin. Therefore, wound VAC sponge was embedded in the subcutaneous position. External wound VAC dressing was drawn over the abdomen and connected to vacuum assisted device at 125 mmHg. The patient tolerated this operation without any apparent complication and was returned to recovery room in satisfactory condition. Job ID: [id number]
[2020-04-07] MEDS ORDERED: Sodium Bicarb 50 MEQ/50 ML Abboject 8.4% SYRINGE ONE (14:05)
[2020-04-07] MEDS: Sodium Bicarb 50 MEQ/50 ML Abboject 8.4% SYRINGE ONE (14:15)
[2020-04-07 15:03] LABS: Actual Bicarbonate (HCO3a) 18.5 mEq/L (22-28); Base Excess (BEa) -7.5 mEq/L (-2.0 to +3.0); CO2 Tension 39.2 mmHg (35.0-45.0); Calcium, Ionized (arterial) 1.24 mmol/L (1.12-1.30); Carboxyhemoglobin (COHb) 0.3 gm% (0.0-3.0); Hemoglobin (Hb) 9.5 g/dL (12.0-16.0); O2 Tension (PaO2), arterial 71.8 mmHg (> 60.0); Potassium - ABG Lab 3.82 mmol/L (3.70-5.30); pH, Arterial 7.29 (7.35-7.45)
[2020-04-07 15:04] LABS: Puncture Site ALINE
--- NOTE | 2020-04-07 15:10 | PRG ---
DATE OF SERVICE: 04/07/2020 SUBJECTIVE: Ms. Miramontes's status is unchanged from yesterday. She continues to be on pressor support. Heart rate appears stable in addition to a blood pressure on norepinephrine. OBJECTIVE: VITAL SIGNS: Blood pressure 120/65, pulse 85, respirations 20. LUNGS: Rhonchi and rales bilaterally. HEART: Irregularly irregular. ABDOMEN: Distended. No bowel sounds present. EXTREMITIES: No edema. PERTINENT LABORATORY DATA: Platelet count 11,000, hemoglobin 9.5, and hematocrit 29.3. Creatinine 1.87, which appears stable, with lactic acid level of 8.9. IMPRESSION: 1. Atrial fibrillation. 2. Perforated bowel. 3. Status post laparoscopic cholecystectomy. 4. Septic shock. RECOMMENDATIONS: Surprisingly, Ms. Barragans heart rate is stable in the 90s. Over the last 12 hours, she has been made DNR. I would certainly honor her and her family's wishes. At this point, continue current therapy for blood pressure and heart rate support. She continues with antibiotics. No further surgeries will be performed. Unfortunately, her prognosis appears poor. No further recommendations. Job ID: [id number]
[2020-04-07] MEDS: Norepinephrine 16 MG, Admixture Fee 1 EACH in Dextrose 5% in Water 250 ML IVPB SCH (16:08)
[2020-04-07] MEDS: Amiodarone 450 MG in Dextrose 5% in Water 250 ML IVPB SCH (16:08)
[2020-04-07 18:34] LABS: Lactic Acid 8.5 mmol/L (0.5-2.2)
[2020-04-07 19:04] LABS: Anion Gap 21 mmol/L (10-20); BUN (Urea Nitrogen) 72 mg/dL (9.8-20.1); Calc. Creatinine Clearance 36 mL/min (70-130); Calcium 8.8 mg/dL (7.8-10.44); Carbon Dioxide 20 mmol/L (23-31); Chloride 104 mmol/L (98-107); Estimated GFR-MDRD 26; Glucose 131 mg/dL (83-110); Phosphorus 4.7 mg/dL (2.3-4.7); Potassium 3.9 mmol/L (3.5-5.1); Sodium 141 mmol/L (136-145)
[2020-04-07] MEDS ORDERED: Potassium Chloride 40 MEQ in Premix Bag 1 BAG IVPB SCH (19:45)
[2020-04-07] MEDS: Fluconazole In NaCl,Iso-Osm 100 MG in Premix Bag 1 BAG IVPB SCH (21:08)
[2020-04-07 21:40] LABS: Vancomycin, Random 19.7 ug/mL (See Comment)
[2020-04-07] MEDS ORDERED: Vancomycin 1 GM in Premix Bag 1 BAG IVPB SCH (22:00)
[2020-04-07] MEDS: [UNRECOGNIZED DRUG - OTHER] IV SCH (22:03)
[2020-04-07] MEDS: POTASSIUM PHOSPHATE IV SCH (22:03)
[2020-04-07] MEDS: POTASSIUM ACETATE IV SCH (22:03)
[2020-04-07] MEDS: POTASSIUM CHLORIDE IV SCH (22:03)
--- NOTE | 2020-04-08 00:34 | PRG ---
DATE OF SERVICE: 04/07/2020 SUBJECTIVE: Patient was seen this evening during rounds. She remains intubated and sedated in the CCU. Nursing reports they are continuing to wean her pressors. At the time of my evaluation, she was only on levo at 5 mcg an hour, vaso has been discontinued. She remains hemodynamically stable with MAPS of 65 or greater. Her heart rate is in the 80s and her rhythm is atrial fibrillation. She answers questions appropriately. She reports her pain is well controlled. OBJECTIVE: VITAL SIGNS: Temperature 97.8, pulse 84, respirations 18, oxygen saturation 94% on FiO2 of 80% on the ventilator, and blood pressure 120/44 with a MAP of 66. GENERAL: Severely ill-appearing elderly female, lying in bed, intubated and sedated with no signs of acute distress. PULMONARY: Equal chest rise and fall. Clear breath sounds bilaterally. No signs of acute respiratory distress. CARDIAC: Irregularly irregular rhythm with a regular rate. ABDOMEN: Soft, nontender, nondistended. There is a midline abdominal wound VAC that is in place. There has been no output since she returned from the OR. EXTREMITIES: Gross motor and sensation is intact. She has significant edema in her bilateral upper and lower extremities. NEUROLOGIC: GCS is 11T. LABORATORY FINDINGS: Sodium 141, potassium 3.9, chloride 104, bicarb 20, BUN 72, creatinine 1.85, glucose 131, lactic acid 8.5, phosphorus 7.4, magnesium 2.0. ASSESSMENT: 1. Acute hypoxemic respiratory failure secondary to acute respiratory distress syndrome, now stable. 2. Acute small-bowel necrosis, status post small-bowel resection with primary jejunojejunal anastomosis and enteroscopy x1. Now with fascia closed and wound VAC in place. 3. Acute kidney injury, improving. 4. Severe septic shock, improving. 5. Acute hypokalemia, improving. 6. Acute blood loss anemia, stable. 7. Acute thrombocytopenia, stable. 8. Diabetic ketoacidosis, resolved. 9. Atrial fibrillation, rapid ventricular response, now rate controlled. PLAN: Continue intubation and sedation overnight. Continue to wean levo. Continue to closely monitor urinary output and MAP goal of 65 or greater. We will repeat blood work and a chest x-ray in the morning. Repeat ABGs in the morning as well. Job ID: [id number]
[2020-04-08] MEDS: Acetaminophen 500 MG TAB PER TUBE SCH ×4 (03:06→21:02)
[2020-04-08] MEDS: Hydrocortisone Sod Succ/PF 100 mg/2 ml Vial IVP SCH ×4 (03:07→21:32)
[2020-04-08] MEDS: Lactated Ringer's 1,000 ML IV SCH ×2 (03:22→12:51)
[2020-04-08 03:49] LABS: Phosphorus 4.1 mg/dL (2.3-4.7)
[2020-04-08 03:52] LABS: ALT (SGPT) 9 U/L (8-55); AST (SGOT) 20 U/L (5-34); Albumin 2.9 g/dL (3.4-4.8); Alkaline Phosphatase 70 U/L (40-110); Anion Gap 18 mmol/L (10-20); BUN (Urea Nitrogen) 72 mg/dL (9.8-20.1); Bilirubin, Total 3.5 mg/dL (0.2-1.2); Calc. Creatinine Clearance 35 mL/min (70-130); Calcium 8.5 mg/dL (7.8-10.44); Carbon Dioxide 21 mmol/L (23-31); Chloride 103 mmol/L (98-107); Estimated GFR-MDRD 25; Glucose 194 mg/dL (83-110); Potassium 4.1 mmol/L (3.5-5.1); Protein, Total 3.9 g/dL (6.0-8.3); Sodium 138 mmol/L (136-145)
[2020-04-08 03:56] LABS: Lactic Acid 7.1 mmol/L (0.5-2.2)
[2020-04-08 04:26] LABS: Band 43 % (5-11); Hemoglobin 8.9 g/dL (12.0-16.0); Hypochromia SLIGHT = 6-15 cells (100X) (0-5/hpf); Lymphocytes 7 % (21-51); MDiff Complete? YES; Mean Corpuscular HGB CONC 31.2 g/dL (32.0-36.0); Mean Corpuscular Hemoglobin 28.9 pg (27.0-31.0); Mean Corpuscular Volume 92.5 fL (78.0-98.0); Mean Platelet Volume 15.8 fL (7.4-10.4); Metamyelocyte 1 % (0-0); Monocytes 5 % (0-10); Neutrophil 44 % (42-75); Platelet Count 20 thou/uL (130-400); Platelet Morphology Comment Appears Decreased; RBC Distribution Width 14.5 % (11.5-14.5); Red Blood Cell (RBC) Count 3.07 mill/uL (4.20-5.40); White Blood Cell (WBC) Count 23.4 thou/uL (4.8-10.8)
[2020-04-08] MEDS: metroNIDAZOLE 500 MG in Premix Bag 1 BAG IVPB SCH ×4 (05:06→21:03)
[2020-04-08] MEDS: Piperacillin/Tazobactam 2.25 GM in Sodium Chloride 0.9% 100 ML IVPB SCH ×4 (05:06→21:04)
[2020-04-08] MEDS: Amiodarone 450 MG in Dextrose 5% in Water 250 ML IVPB SCH ×2 (05:15→22:52)
--- NOTE | 2020-04-08 05:52 | PDOC.FM ---
- Subjective Subjective: Intubated. Off sedation at the time of evaluation. States she is in pain. - Objective MAR Reviewed: Yes Vital Signs & Weight: Vital Signs (12 hours) Temp Pulse Resp Pulse Ox 04/08/20 04:00 97.5 F L 21 H 04/08/20 03:24 87 04/08/20 02:00 25 H 04/08/20 01:37 76 20 94 L 04/08/20 01:35 92 04/08/20 00:00 97.1 F L 23 H 04/07/20 22:00 25 H 04/07/20 21:34 93 04/07/20 20:00 97.8 F 22 H 95 04/07/20 18:43 82 20 95 04/07/20 18:21 92 04/07/20 18:00 21 H Weight Admit Weight 78 kg Weight 105 kg Most Recent Monitor Data Heart Rate from ECG 90 NIBP 97/60 NIBP BP-Mean 72 Respiration from ECG 19 SpO2 92 I&O: 04/06/20 04/07/20 04/08/20 06:59 06:59 06:59 Intake Total 6073.1 7143.1 2604.1 Output Total 2908 6332 2700 Balance 3165.1 811.1 -95.9 Result Diagrams: 04/08/20 03:00 04/08/20 03:00 Phys Exam - Physical Examination Constitutional: NAD HEENT: PERRLA, moist MMs Neck: supple Respiratory: no wheezing, no rales, no rhonchi Diminshed breath sounds bilaterally Cardiovascular: RRR, no significant murmur, no rub Gastrointestinal: soft TTP Musculoskeletal: no edema, pulses present Neurological: non-focal Psychiatric: normal affect Skin: no rash, normal turgor Dx/Plan (1) HTN (hypertension) Code(s): I10 - ESSENTIAL (PRIMARY) HYPERTENSION Status: Acute (2) HLD (hyperlipidemia) Code(s): E78.5 - HYPERLIPIDEMIA, UNSPECIFIED Status: Acute (3) GERD (gastroesophageal reflux disease) Code(s): K21.9 - GASTRO-ESOPHAGEAL REFLUX DISEASE WITHOUT ESOPHAGITIS Status: Acute (4) Atrial fibrillation with rapid ventricular response Code(s): I48.91 - UNSPECIFIED ATRIAL FIBRILLATION Status: Acute (5) Thrombocytopenia Code(s): D69.6 - THROMBOCYTOPENIA, UNSPECIFIED Status: Acute (6) IDDM (insulin dependent diabetes mellitus) Code(s): KKG4304 - Status: Acute (7) Ischemia, bowel Code(s): K55.9 - VASCULAR DISORDER OF INTESTINE, UNSPECIFIED Status: Acute (8) Large bowel perforation Code(s): K63.1 - PERFORATION OF INTESTINE (NONTRAUMATIC) Status: Acute (9) Pancreatic cancer Status: Acute Qualifiers: Pancreatic malignancy location: unspecified Qualified Code(s): C25.9 - Malignant neoplasm of pancreas, unspecified - Plan Plan: Neuro: -Sedation with Precedex and fentanyl Cardiovascular: -On Levophed @ 5mcg/hr pressure support. Vasopressin discontinued. -Atrial fibrillation, rate controlled - on amiodarone drip. Rate has been in the 90s. -Cardiology consulted. Appreciate recommendations. Respiratory: -ARDS vs PNA -daily CXR worsening. Read as c/w pneumonia. -Intubated and sedated s/p most recent exploratory laparotomy 04/05/2020. -Mechanical ventilation. -On duonebs jerry q 6 hr. Gastrointestinal: -Acute mesenteric eschemia with small bowel necrosis and perforation s/p ex lap x3. Fascial closure 04/07. -Patient has NG tube, Rectal tube, and TPN. -Stress ulcer ppx with pantoprazole 40mg IV daily. -General surgery on board. -On zosyn Renal/: -Acute kidney injury, stable -Saldana in place. -Albumin 25% -Oliguria is improving. -Creatinine is improving. Hematologic: -Acute blood loss anemia, thrombocytopenia 2/2 malignancy and chemotherapy. -She continues to be thrombocytopenic, platelets 11 this morning. -HIT labs ordered. -Eliquis 2.5mg BID. -Hematology/Oncology consulted, appreciate recommendations. -Patient has recent history of pancreatic cancer, s/p whipple procedure. On Granix. Endocrine: -Diabetic ketoacidosis, resolved. DM II. -On insulin gtt @ 3u/hour -On hydrocortisone BID for adrenal insufficiency. Infectious disease: -Septic shock, bowel perforation -Zosyn (03/31) 2/2 bowel perforation and multiple intraabdominal surgeries. -IV fluconazole (04/05) -IV Metronidazole (04/06) -IV Vancomycin (04/07) PPX: -Protonix 40mg daily. -Eliquis 2.5mg BID. 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 Palliative Care team consulted to discuss goals of care. Sister Sameera is MPOA for patient, presents with advanced directive documents signed by patient. Family meeting held 04/01 with all patient's provider team in attendance, discussed plan of care moving forward. Sister Sameera requests frequent updates. 04/06 made patient DNAR and discussed not pursuing further surgeries. Will revisit with PC team goals of care. Addendum - Attending - Attending Attestation Date/Time: 04/08/20 [id number] I personally evaluated the patient and discussed the management with Dr. Clay I agree with the History, Examination, Assessment and Plan documented above with any addition or exceptions noted below. She is requiring additional vent support. Tube feeds started today by gen surg. Given her increasing need for vent support for 2 consecutive days her prognosis is looking progressively worse.
[2020-04-08 07:21] LABS: Actual Bicarbonate (HCO3a) 20.5 mEq/L (22-28); CO2 Tension 39.5 mmHg (35.0-45.0); Calcium, Ionized (arterial) 1.17 mmol/L (1.12-1.30); Carboxyhemoglobin (COHb) 0.3 gm% (0.0-3.0); Hemoglobin (Hb) 9.8 g/dL (12.0-16.0); Potassium - ABG Lab 3.87 mmol/L (3.70-5.30); pH, Arterial 7.33 (7.35-7.45)
[2020-04-08 07:22] LABS: ALV-art Gradient 464.025 (0-20); Puncture Site ALINE
--- NOTE | 2020-04-08 07:54 | RAD ---
EXAM: Single view of the chest HISTORY: Pneumonia COMPARISON: 04/07/2020 FINDINGS: Single view of the chest shows a normal sized cardiomediastinal silhouette. The lines and tubes are unchanged in position. There are stable multifocal areas of airspace opacity. Veil-like opacities may represent layering pleural effusions. The bones are unremarkable. IMPRESSION: Stable multifocal infiltrates and bilateral pleural effusions
[2020-04-08] MEDS: Pantoprazole 40 MG VIAL IVP SCH (08:15)
[2020-04-08] MEDS: Apixaban 2.5 MG TAB PO SCH ×2 (08:15→21:47)
[2020-04-08] MEDS: Saccharomyces boulardii 250 MG CAP PO SCH (08:15)
[2020-04-08] MEDS ORDERED: Furosemide 100 MG, Admixture Fee 1 EACH in Sodium Chloride 0.9% 90 ML IVPB SCH (09:00)
--- NOTE | 2020-04-08 09:22 | PRG ---
DATE OF SERVICE: 04/08/2020 SUBJECTIVE: Ms. Miramontes's status is unchanged. She continues to be on norepinephrine. OBJECTIVE: VITAL SIGNS: Blood pressure 112/64, pulse 85, temperature afebrile. LUNGS: Clear to auscultation. HEART: Irregularly irregular. ABDOMEN: Decreased bowel sounds and distended. EXTREMITIES: No edema. PERTINENT LABORATORY DATA: Hemoglobin 8.9, platelet count 20,000. IMPRESSION: 1. Atrial fibrillation. 2. Septic shock. 3. Recent perforated bowel. RECOMMENDATIONS: We will continue current . The patient's prognosis continues to be poor. Continue antibiotic therapy and vent support. Job ID: [id number]
[2020-04-08] MEDS ORDERED: Sodium Bicarbonate Tab 325 MG TAB PER TUBE PRN (10:00)
[2020-04-08] MEDS ORDERED: Pancrelipase DR 12,000 1 CAP FS PRN (10:00)
[2020-04-08] MEDS ORDERED: Sterile Water 10 ML ONE (11:14)
[2020-04-08] MEDS ORDERED: Vecuronium 10 MG VIAL IVP SCH (11:15)
[2020-04-08] MEDS ORDERED: Sodium Chloride 0.9% (PF) 10 ML VIAL FS SCH (11:15)
--- NOTE | 2020-04-08 11:20 | PDOC.MOPN ---
Interval History: Patient sedated. Abdominal wound vac in place. - Vital Signs Vital Signs: Vital Signs (12 hours) Temp Pulse Resp BP Pulse Ox 04/08/20 10:41 92 133/48 L 04/08/20 10:00 20 04/08/20 08:00 97.5 F L 22 H 04/08/20 07:39 92 118/44 L 04/08/20 07:17 90 L 04/08/20 06:00 26 H 04/08/20 04:00 97.5 F L 21 H 04/08/20 03:24 87 04/08/20 02:00 25 H 04/08/20 01:37 76 20 94 L 04/08/20 01:35 92 04/08/20 00:00 97.1 F L 23 H Weight Admit Weight 171 lb 15.369 oz Weight 231 lb 7.766 oz Most Recent Monitor Data Heart Rate from ECG 92 NIBP 98/56 NIBP BP-Mean 70 Respiration from ECG 26 SpO2 91 - Physical Exam General: No acute distress Cardiovascular: Regular rate Abdomen: Other (wound vac, ppn) Neurological: Other (sedated/intubated) - Labs Result Diagrams: 04/08/20 03:00 04/08/20 03:00 Lab results: Laboratory Results - last 24 hr 04/08/20 07:07: Specimen Type ARTERIAL, Puncture Site JAY, Bicarbonate Actual 20.5 L, ABG pH 7.33 L, ABG pCO2 39.5, ABG pO2 57.0 L*, ABG O2 Sat (Measured) 87.9 L, ABG O2 Content 12.1 L, ABG Base Excess -5.0 L, ABG Hematocrit 29.0 L, ABG Hemoglobin 9.8 L, ABG Oxyhemoglobin 87.4 L, ABG Carboxyhemoglobin 0.3, ABG Methemoglobin 0.30, ABG Deoxyhemoglobin 12.0 H, Cj Test Not Reportable, A-a O2 Gradient 464.025 H, Ionized Calcium 1.17, Mode of Support AC, Mechanical Rate 20, Inspired O2 80, Inspiratory Time 1.25, Tidal Volume 583, PEEP or CPAP 10.0, Sodium 136, Potassium 3.87, Chloride 103 04/08/20 03:00: B-Natriuretic Peptide 2446.8 H 04/08/20 03:00: Phosphorus 4.1 04/08/20 03:00: Sodium 138, Potassium 4.1, Chloride 103, Carbon Dioxide 21 L, Anion Gap 18, BUN 72 H, Creatinine 1.90 H, Estimated GFR (MDRD) 25, Glucose 194 H, Calcium 8.5, Magnesium 2.0, Total Bilirubin 3.5 H, AST 20, ALT 9, Alkaline Phosphatase 70, Serum Total Protein 3.9 L, Albumin 2.9 L, Globulin 1.0 L, Albumin/Globulin Ratio 2.9 H 04/08/20 03:00: WBC 23.4 H, RBC 3.07 L, Hgb 8.9 L, Hct 28.4 L, MCV 92.5, MCH 28.9, MCHC 31.2 L, RDW 14.5, Plt Count 20 L*, MPV 15.8 H, Neutrophils % (Manual ) 44, Band Neuts % (Manual) 43 H, Lymphocytes % (Manual) 7 L, Monocytes % ( Manual) 5, Metamyelocytes % (Man) 1 H, Lymphocytes # Not Reportable, Hypochromia SLIGHT = 6-15 cells, Plt Morphology Comment Appears Decreased L 04/08/20 03:00: Lactic Acid 7.1 H* 04/07/20 21:10: Random Vancomycin 19.7 04/07/20 18:01: Lactic Acid 8.5 H* 04/07/20 18:01: Sodium 141, Potassium 3.9, Chloride 104, Carbon Dioxide 20 L, Anion Gap 21 H, BUN 72 H, Creatinine 1.85 H, Estimated GFR (MDRD) 26, Glucose 131 H, Calcium 8.8, Phosphorus 4.7, Magnesium 2.0 04/07/20 14:59: Specimen Type ARTERIAL, Puncture Site JAY, Bicarbonate Actual 18.5 L, ABG pH 7.29 L, ABG pCO2 39.2, ABG pO2 71.8 H, ABG O2 Sat (Measured) 92.8 L, ABG O2 Content 12.4 L, ABG Base Excess -7.5 L, ABG Hematocrit 28.0 L, ABG Hemoglobin 9.5 L, ABG Oxyhemoglobin 92.2 L, ABG Carboxyhemoglobin 0.3, ABG Methemoglobin 0.30, ABG Deoxyhemoglobin 7.2 H, A-a O2 Gradient 445.600 H, Ionized Calcium 1.24, Mode of Support AC, Mechanical Rate 20, Inspired O2 80, Inspiratory Time 1.25, Tidal Volume 522, PEEP or CPAP 10.0, Sodium 137, Potassium 3.82, Chloride 101 04/07/20 13:34: Specimen Type ARTERIAL, Puncture Site JAY, Bicarbonate Actual 17.6 L, ABG pH 7.23 L*, ABG pCO2 42.7, ABG pO2 68.2 H, ABG O2 Sat (Measured) 90.8 L, ABG O2 Content 12.9 L, ABG Base Excess -9.3 L, ABG Hematocrit 30.0 L, ABG Hemoglobin 10.1 L, ABG Oxyhemoglobin 90.3 L, ABG Carboxyhemoglobin 0.3, ABG Methemoglobin 0.30, ABG Deoxyhemoglobin 9.1 H, Cj Test Not Reportable, A-a O2 Gradient 448.825 H, Ionized Calcium 1.19, Mode of Support AC, Mechanical Rate 20, Inspired O2 80, Inspiratory Time 1.25, Tidal Volume 506, Peak Inspir Pressure 15, PEEP or CPAP 10.0, Sodium 135, Potassium 3.97, Chloride 101 04/07/20 12:33: Lactic Acid 8.9 H* 04/07/20 12:33: Sodium 139, Potassium 4.6, Chloride 103, Carbon Dioxide 19 L, Anion Gap 22 H, BUN 69 H, Creatinine 1.87 H, Estimated GFR (MDRD) 26, Glucose 183 H, Calcium 7.5 L, Phosphorus 5.3 H, Magnesium 2.0 04/04/20 09:30: Crossmatch See Detail Status: lab reviewed by me A/P - Problem (1) Large bowel perforation Current Visit: Yes Code(s): K63.1 - PERFORATION OF INTESTINE (NONTRAUMATIC) Status: Acute (2) Pancreatic cancer Current Visit: Yes Status: Acute Qualifiers: Pancreatic malignancy location: unspecified Qualified Code(s): C25.9 - Malignant neoplasm of pancreas, unspecified (3) Thrombocytopenia Current Visit: Yes Code(s): D69.6 - THROMBOCYTOPENIA, UNSPECIFIED Status: Acute - Plan Plan: dc granix monitor CBC, transfuse prn patient DNAR
[2020-04-08] MEDS ORDERED: Cefepime 2 GM in Sodium Chloride 0.9% 100 ML IVPB SCH (12:00)
--- NOTE | 2020-04-08 12:08 | ULT ---
[facility] Charge History: Pleural effusions Comparison: Chest radiograph same day Findings: Small left and mild right pleural effusion effusion. No large volume effusion. Impression: Small left and mild right pleural effusions.
[2020-04-08] MEDS ORDERED: Metolazone 2.5 MG TAB PO SCH (13:45)
[2020-04-08] MEDS: Metolazone 2.5 MG TAB PO SCH ×2 (13:47→13:49)
--- NOTE | 2020-04-08 14:27 | PRG ---
DATE OF SERVICE: 04/08/2020 SUBJECTIVE: Ms. Miramontes is an 79-year-old woman, recently underwent a partial small bowel resection for ischemic bowel necrosis. She remains sedated on mechanical ventilator support. She was weaned off vasopressin yesterday. The norepinephrine has been weaned down now to 6 mcg/minute. Her urinary output is adequate for the patient's age and weight. When laid on sedation, she moves all extremities. She follows commands. She continues to have loose bowel movements. OBJECTIVE: VITAL SIGNS: This morning include blood pressure 126/48, pulse is 95 and irregular, respiratory rate is 22, maximum temperature in last 24 hours is 98.4 degrees Fahrenheit, oxygen saturation is now 94% on 100% FiO2 since this morning. HEENT: Pupils are equally round and reactive to light bilaterally. HEART: Irregular rate and irregular rhythm. LUNGS: Reveals bibasilar rhonchi. Breathing regular and unlabored. ABDOMEN: Soft and nondistended. Wound VAC remains in place. No significant drainage recorded. NEUROLOGIC: Reveals no focal deficits present. LABORATORY FINDINGS: Today include a CBC with 23,400 white blood cells, hemoglobin and hematocrit 8.9 and 28.4 respectively. Platelet count is 20,000. Metabolic profile; sodium 138, potassium 4.1, chloride is 103, bicarb is 21, BUN is 72, creatinine is 1.90, glucose is 194. Lactic acid is 7.1 today, down from 8.5 yesterday. Magnesium is 2.0, phosphorus is 4.1. BNP is 2446.8. This is an increase when compared to 112.1 on 04/02/2020. Arterial blood gas today; pH is 7.33, pCO2 is 40, pO2 is 57, base excess is -5.0 , ionized calcium is 1.17. I have personally reviewed the chest x-ray today, which reveals worsening bilateral interstitial and alveolar infiltrates with moderate bilateral pleural effusions. No pneumothorax present. IMPRESSION: 1. Acute respiratory failure secondary to acute respiratory distress syndrome. 2. Worsening bilateral pleural effusions. 3. Acute blood loss anemia, stable. 4. Acute thrombocytopenia, marginally improving. 5. Ischemic bowel necrosis, status post multiple laparotomies with partial small bowel resection and primary anastomosis. PLAN: 1. Continue with full mechanical ventilator support. 2. We will initiate prone ventilation today. 3. We will also place small chest tubes. Hopefully, this will help with recovery of functional residual capacity to improve both oxygenation and ventilation. 4. Continue with current antibiotic regimen. We will add additional coverage for Pseudomonas. 5. We will reconvene with the patient's family within the next 24 to 48 hours if no significant improvement is recorded in this patient's physiology. Total critical care time is 40 minutes. Job ID: [id number] MTDD
[2020-04-08 15:08] VITALS: BP 108/37
[2020-04-08] MEDS ORDERED: Lidocaine 1% w/Epinephrine 1:100K 20 ML VIAL ONE ×2 (15:19→15:21)
[2020-04-08] MEDS ORDERED: Lidocaine 1% (PF) 30 ML VIAL ONE (15:22)
[2020-04-08 16:16] LABS: Heparin-Induced Ab (HITA) 0.052 OD (0.000-0.400)
--- NOTE | 2020-04-08 16:29 | PDOC.GSOPN ---
General Surgery Procedure Note - Operative Note Date: 04/08/20 Time: 16:10 Pre-op diagnosis: Suspected bilateral Pleural Effusions Post-op diagnosis: same Procedure: Bilateral Chest Tube placement Findings: Left Chest Tube: 100 ml of Serous Fluid Right Chest Tube: 300 ml of Serous Fluid Implants: None Anesthesia: local Surgeon: Iglesia Vicente (Collar Tailor: Dr. August Walker) Estimated blood loss: 50 (ml) Pathology: none sent Condition: critical - Description of Procedure Details: INDICATION: Bilateral Pleural Effusions PROCEDURE TRANSFER AND LINE UP WORKER: Dr. Iglesia Vicente (Attending Physician) ENGINEERING ADMINISTRATOR: Dr. August Walker CONSENT: Consent was obtained from the patient's MPOA prior to the procedure. Indications , risks, and benefits were explained at length. PROCEDURE SUMMARY: A time out was performed and after the chest x-ray was reviewed, with both sides evaluated and marked. Both the Procedure Shuttler Car and the Collar Tailor washed their hands immediately prior to the procedure. Both the Procedure Shuttler Car and the Collar Tailor wore surgical caps and masks, in addition to sterile gloves, throughout the procedure. The patient was prepped and draped in a sterile manner using Betadine scrub after the patient was positioned in the usual fashion. A total of 10 ml of 1% lidocaine was used to anesthesize the skin, subcutaneous tissue, superior aspect of the rib periosteum and parietal pleura on the left side. A 2 cm incision was then made parallel to the rib in the anterior axillary line at the level of the 4th rib. The subcutaneous tissue superficial and superior to the rib was dissected bluntly to the level of the pleura. The pleura was then entered bluntly, and. a gush of pleural fluid was noted from the pleural space. The disruption in the parietal pleura was expanded bluntly and a finger was inserted. A 32 Sinhala chest tube was then inserted on the left side, using the Procedure Shuttler Car's finger as a guide. The chest tube was directed superiorly, posteriorly and toward the apex, and inserted easily. The chest tube was sutured to the skin at the insertion site, and connected securely with tape to a Pleurovac. A sterile occlusive dressing was placed over the insertion site. No immediate complications were noted and approximately 100 ml of stay colored fluid was drained immediately. Estimated blood loss is 25 ml.. Next, a total of 10 ml of 1% lidocaine was used to anesthesize the skin, subcutaneous tissue, superior aspect of the rib periosteum and parietal pleura on the right side. A 2 cm incision was then made parallel to the rib in the anterior axillary line at the level of the 4th rib. The subcutaneous tissue superficial and superior to the rib was dissected bluntly to the level of the pleura. The pleura was then entered bluntly, and. a gush of pleural fluid was noted from the pleural space. The disruption in the parietal pleura was expanded bluntly and a finger was inserted. A 28 Sinhala chest tube was then inserted on the left side, using the Collar Tailor's finger as a guide. The chest tube was directed superiorly, posteriorly and toward the apex, and inserted easily. The chest tube was sutured to the skin at the insertion site, and connected securely with tape to a Pleurovac. A sterile occlusive dressing was placed over the insertion site. No immediate complications were noted and approximately 300 ml of stay colored fluid was drained immediately. Estimated blood loss is 25 ml..
[2020-04-08 19:57] LABS: SARS-CoV-2 IgG Ab Non-Reactive (NonReactive); SARS-CoV-2 IgG Index 0.01 S/CO (< 1.40)
[2020-04-08] MEDS: HUMULIN R 100 UNITS in Sodium Chloride 0.9% 100 ML IVPB SCH (20:32)
[2020-04-08] MEDS: Vasopressin 20 UNIT, Admixture Fee 1 EACH in Sodium Chloride 0.9% 50 ML IV SCH (20:32)
[2020-04-08] MEDS: Fluconazole In NaCl,Iso-Osm 100 MG in Premix Bag 1 BAG IVPB SCH (20:32)
[2020-04-08] MEDS: fentaNYL Citrate/PF 2,000 MCG in Sodium Chloride 0.9% 60 ML IV SCH (21:10)
[2020-04-08] MEDS ORDERED: Apixaban 2.5 MG TAB PO SCH (21:15)
[2020-04-08] MEDS: POTASSIUM PHOSPHATE IV SCH (22:15)
[2020-04-08] MEDS: POTASSIUM CHLORIDE IV SCH (22:15)
[2020-04-08] MEDS: [UNRECOGNIZED DRUG - OTHER] IV SCH (22:15)
[2020-04-08] MEDS: POTASSIUM ACETATE IV SCH (22:15)
[2020-04-09] MEDS ORDERED: Norepinephrine 16 MG, Admixture Fee 1 EACH in Dextrose 5% in Water 234 ML IVPB SCH (00:30)
[2020-04-09] MEDS: Lactated Ringer's 1,000 ML IV SCH ×2 (01:17→10:38)
--- NOTE | 2020-04-09 01:38 | PRG ---
DATE OF SERVICE: 04/08/2020 SUBJECTIVE: The patient was seen this evening during rounds in the CCU. She continues to be intubated and sedated. She has developed significant ARDS and is having difficulty oxygenating. Bilateral chest tubes were placed earlier today with serosanguineous output, much more on the right when compared to the left. She continues to be afebrile. Levo has been increased, subsequently vaso has also been started. She is making appropriate amount of urine. She is rate controlled and she is afebrile. OBJECTIVE: VITAL SIGNS: Temperature 96.9, pulse 74, respirations 20, oxygen saturation on FiO2, 100% on the ventilator, blood pressure 118/40. GENERAL: Ill and weak appearing elderly female, lying in bed, intubated and sedated with no signs of acute distress. PULMONARY: Equal chest rise and fall. The patient continues to have difficulties with oxygenation, although she was on the ventilator. She has bilateral chest tubes that are to wall suction both with serosanguineous output. ABDOMEN: Soft and nondistended. She has a wound VAC in place that has essentially no output. EXTREMITIES: Motor and sensation intact in all extremities. She is significantly edematous in all extremities. NEUROLOGIC: GCS is 11 T. ASSESSMENT: 1. Status post ischemic bowel with perforation. 2. Diabetic ketoacidosis, resolved. 3. Atrial fibrillation, rapid ventricular response, now rate controlled. 4. Acute kidney injury, stable. 5. Acute respiratory distress syndrome, worsening. 6. Persistent thrombocytopenia. 7. Acute hypoxemic respiratory failure. 8. Severe septic shock due to ischemic bowel perforation. PLAN: 1. Continue intubation and sedation overnight. Continue levo and vasopressors. 2. Continue all antibiotics. Repeat chest x-ray in the morning. 3. Repeat blood work as well. The patient seems to no longer be improving, in fact we are escalating her care. 4. Trauma team to discuss with the patient's family about steps moving forward in the morning. Job ID: [id number]
[2020-04-09] MEDS: Acetaminophen 500 MG TAB PER TUBE SCH (02:34)
[2020-04-09 04:47] LABS: Lactic Acid 5.7 mmol/L (0.5-2.2)
[2020-04-09 04:50] LABS: Band 42 % (5-11); Burr Cells MODERATE= 6-15 cells (100X) (0-1/hpf); Dohle Bodies SLIGHT; Hemoglobin 9.8 g/dL (12.0-16.0); Large Platelets SLIGHT; Lymphocytes 4 % (21-51); MDiff Complete? YES; Mean Corpuscular HGB CONC 30.6 g/dL (32.0-36.0); Mean Corpuscular Hemoglobin 28.9 pg (27.0-31.0); Mean Corpuscular Volume 94.7 fL (78.0-98.0); Mean Platelet Volume 16.1 fL (7.4-10.4); Metamyelocyte 2 % (0-0); Monocytes 5 % (0-10); Neutrophil 46 % (42-75); Nucleated RBC 10 % (0); Platelet Count 27 thou/uL (130-400); Platelet Morphology Comment Appears Decreased; RBC Distribution Width 15.3 % (11.5-14.5); Reactive Lymphocytes 1 % (0-10); Red Blood Cell (RBC) Count 3.37 mill/uL (4.20-5.40); Target Cells SLIGHT = 2-5 cells (100X) (0-1/hpf); Toxic Granulation SLIGHT; White Blood Cell (WBC) Count 38.4 thou/uL (4.8-10.8)
[2020-04-09] MEDS: Hydrocortisone Sod Succ/PF 100 mg/2 ml Vial IVP SCH ×2 (04:52→10:38)
[2020-04-09 04:54] LABS: Anion Gap 18 mmol/L (10-20); BUN (Urea Nitrogen) 82 mg/dL (9.8-20.1); Calc. Creatinine Clearance 38 mL/min (70-130); Calcium 8.2 mg/dL (7.8-10.44); Carbon Dioxide 19 mmol/L (23-31); Chloride 104 mmol/L (98-107); Estimated GFR-MDRD 25; Glucose 123 mg/dL (83-110); Magnesium 2.1 mg/dL (1.6-2.6); Potassium 4.7 mmol/L (3.5-5.1); Sodium 136 mmol/L (136-145)
[2020-04-09] MEDS: metroNIDAZOLE 500 MG in Premix Bag 1 BAG IVPB SCH (05:00)
[2020-04-09] MEDS: Piperacillin/Tazobactam 2.25 GM in Sodium Chloride 0.9% 100 ML IVPB SCH (05:01)
[2020-04-09 05:05] VITALS: BMI 35.9
--- NOTE | 2020-04-09 05:56 | PDOC.FM ---
- Subjective Subjective: Intubated and sedated. - Objective MAR Reviewed: Yes Vital Signs & Weight: Vital Signs (12 hours) Temp Pulse Resp Pulse Ox 04/09/20 04:00 96.8 F L 04/09/20 03:04 72 20 89 L 04/09/20 02:00 20 04/09/20 00:00 97.1 F L 20 04/08/20 22:00 20 04/08/20 21:43 75 20 89 L 04/08/20 20:00 96.9 F L 04/08/20 19:35 89 L 04/08/20 18:52 82 20 88 L 04/08/20 18:00 20 Weight Admit Weight 78 kg Weight 104 kg Most Recent Monitor Data Heart Rate from ECG 78 NIBP 117/76 NIBP BP-Mean 89 Respiration from ECG 20 SpO2 90 I&O: 04/07/20 04/08/20 04/09/20 06:59 06:59 06:59 Intake Total 7143.1 3965.4 2153 Output Total 6332 3220 1765 Balance 811.1 745.4 388 Result Diagrams: 04/09/20 04:00 04/09/20 04:00 Phys Exam - Physical Examination Constitutional: NAD HEENT: moist MMs Neck: no JVD Diminished breath sounds bilaterally. Mechanical ventilation sounds. Cardiovascular: RRR, no significant murmur Gastrointestinal: soft Wound vac in place. Musculoskeletal: no edema, pulses present Skin: no rash, normal turgor Dx/Plan (1) HTN (hypertension) Code(s): I10 - ESSENTIAL (PRIMARY) HYPERTENSION Status: Acute (2) HLD (hyperlipidemia) Code(s): E78.5 - HYPERLIPIDEMIA, UNSPECIFIED Status: Acute (3) GERD (gastroesophageal reflux disease) Code(s): K21.9 - GASTRO-ESOPHAGEAL REFLUX DISEASE WITHOUT ESOPHAGITIS Status: Acute (4) Atrial fibrillation with rapid ventricular response Code(s): I48.91 - UNSPECIFIED ATRIAL FIBRILLATION Status: Acute (5) Thrombocytopenia Code(s): D69.6 - THROMBOCYTOPENIA, UNSPECIFIED Status: Acute (6) IDDM (insulin dependent diabetes mellitus) Code(s): [id number] - Status: Acute (7) Ischemia, bowel Code(s): K55.9 - VASCULAR DISORDER OF INTESTINE, UNSPECIFIED Status: Acute (8) Large bowel perforation Code(s): K63.1 - PERFORATION OF INTESTINE (NONTRAUMATIC) Status: Acute (9) Pancreatic cancer Status: Acute Qualifiers: Pancreatic malignancy location: unspecified Qualified Code(s): C25.9 - Malignant neoplasm of pancreas, unspecified - Plan Plan: Neuro: -Sedation with Precedex and fentanyl -Pt not as responsive this morning off sedation. Cardiovascular: -On Levophed and Vasopressin for pressure support. -Atrial fibrillation, rate controlled - on amiodarone drip. Rate has been in the 90s. -Cardiology consulted. Appreciate recommendations. Respiratory: -ARDS. PNA. -daily CXR worsening. Read as c/w pneumonia. -Intubated and sedated s/p most recent exploratory laparotomy 04/05/2020. -Mechanical ventilation. -On duonebs jerry q 6 hr. -s/p bilateral chest tube placement 04/08/2020. Gastrointestinal: -Acute mesenteric eschemia with small bowel necrosis and perforation s/p ex lap x3. Fascial closure 04/07. -Patient has NG tube, Rectal tube, and TPN. -Stress ulcer ppx with pantoprazole 40mg IV daily. -General surgery on board. -On zosyn Renal/: -Acute kidney injury, stable -Saldana in place. -Oliguria is improving. -Creatinine is elevated but stable. -on Lasix gtt Hematologic: -Acute blood loss anemia, thrombocytopenia 2/2 malignancy and chemotherapy. -She continues to be thrombocytopenic, platelets 27 this morning. -Eliquis 2.5mg BID. -Hematology/Oncology consulted, appreciate recommendations. -Patient has recent history of pancreatic cancer, s/p whipple procedure. On Granix. Endocrine: -Diabetic ketoacidosis, resolved. DM II. -On insulin gtt @ 3u/hour -On hydrocortisone BID for adrenal insufficiency. Infectious disease: -Septic shock, bowel perforation -Zosyn (03/31) 2/2 bowel perforation and multiple intraabdominal surgeries. -IV fluconazole (04/05) -IV Metronidazole (04/06) -IV Vancomycin (04/07) PPX: -Protonix 40mg daily. -Eliquis 2.5mg BID. 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 Palliative Care team consulted to discuss goals of care. Sister Sameera is MPOA for patient, presents with advanced directive documents signed by patient. Family meeting held 04/01 with all patient's provider team in attendance, discussed plan of care moving forward. Sister Sameera requests frequent updates. 04/06 made patient DNAR and discussed not pursuing further surgeries. Will revisit with PC team goals of care. 04/08 - general surgery is recommending hospice care. A/P - Problem (1) HTN (hypertension) Current Visit: Yes Code(s): I10 - ESSENTIAL (PRIMARY) HYPERTENSION Status: Acute (2) HLD (hyperlipidemia) Current Visit: Yes Code(s): E78.5 - HYPERLIPIDEMIA, UNSPECIFIED Status: Acute (3) GERD (gastroesophageal reflux disease) Current Visit: Yes Code(s): K21.9 - GASTRO-ESOPHAGEAL REFLUX DISEASE WITHOUT ESOPHAGITIS Status: Acute (4) Atrial fibrillation with rapid ventricular response Current Visit: Yes Code(s): I48.91 - UNSPECIFIED ATRIAL FIBRILLATION Status : Acute (5) Thrombocytopenia Current Visit: Yes Code(s): D69.6 - THROMBOCYTOPENIA, UNSPECIFIED Status: Acute (6) IDDM (insulin dependent diabetes mellitus) Current Visit: Yes Code(s): [id number] - Status: Acute (7) Ischemia, bowel Current Visit: Yes Code(s): K55.9 - VASCULAR DISORDER OF INTESTINE, UNSPECIFIED Status: Acute (8) Large bowel perforation Current Visit: Yes Code(s): K63.1 - PERFORATION OF INTESTINE (NONTRAUMATIC) Status: Acute (9) Pancreatic cancer Current Visit: Yes Status: Acute Qualifiers: Pancreatic malignancy location: unspecified Qualified Code(s): C25.9 - Malignant neoplasm of pancreas, unspecified Addendum - Attending - Attending Attestation Date/Time: 04/09/20 [id number] I personally evaluated the patient and discussed the management with Dr. Clay. I agree with the History, Examination, Assessment and Plan documented above with any addition or exceptions noted below. She was terminally extubated this morning and passed at 1120.
--- NOTE | 2020-04-09 07:57 | RAD ---
XR Chest 1 View Portable History: Bilateral chest tubes Comparison: Radiograph prior day Findings: Bilateral thoracostomy tubes are in place with tips projecting over the mid lungs. Size dec reased pleural effusions. Mild improved lung aeration. Endotracheal tube tip sits at the level of clavicles. Weighted feeding t ube tip below diaphragm although out of field of view. Enteric tube suction tip at the GE junction. Impression: Lines and tubes as above. Improved pleural effusions and lung aeration.
[2020-04-09] MEDS ORDERED: Apixaban 2.5 MG TAB PO SCH (09:00)
[2020-04-09 10:18] VITALS: TEMP 89.9
[2020-04-09] MEDS ORDERED: Lorazepam 2 MG/ML VIAL SLOW IVP SCH (10:30)
[2020-04-09] MEDS ORDERED: Morphine 10 MG/ML VIAL SLOW IVP SCH (10:30)
--- NOTE | 2020-04-09 13:17 | PRG ---
DATE OF SERVICE: 04/09/2020 SUBJECTIVE: No significant changes noted overnight. The patient continues to be on norepinephrine. OBJECTIVE: VITAL SIGNS: Blood pressure 144/50, pulse 78, temperature afebrile. Physical exam deferred. IMPRESSION: 1. Atrial fibrillation. 2. Recent perforated bowel, status post laparoscopic cholecystectomy. 3. Septic shock. RECOMMENDATIONS: Ms. Miramontes'asif heart rate continues to be stable. She had no further recommendations. Family is to have a discussion on how to proceed this afternoon. At this point, given no further recommendations, we will follow peripherally. Prognosis appears poor. Job ID: [id number]
--- NOTE | 2020-04-09 23:13 | DIS ---
DATE OF ADMISSION: 03/31/2020 DATE OF DISCHARGE: 04/09/2020 CONSULTANTS: 1. Dr. Iglesia Vicente, General Surgery and Critical Care. 2. Dr. Maren Muir and Dr. Mejia with Cardiology. ADMITTING DIAGNOSES: 1. Acute diabetic ketoacidosis. 2. Acute ischemic bowel necrosis. 3. Acute kidney injury. 4. Acute thrombocytopenia. 5. Acute neutropenia. 6. Acute septic shock. 7. Acute respiratory failure. DIAGNOSES ON DISCHARGE: 1. Acute diabetic ketoacidosis. 2. Acute ischemic bowel necrosis. 3. Acute kidney injury. 4. Acute thrombocytopenia. 5. Acute neutropenia. 6. Acute septic shock. 7. Acute respiratory failure. 8. Acute respiratory distress syndrome. 9. Acute cardiopulmonary arrest. OPERATIONS PERFORMED: 1. Exploratory laparotomy and partial small-bowel resection on 03/31/2020. 2. A second-look exploratory laparotomy, excision of ischemic small-bowel wall with primary enterorrhaphy, primary jejunojejunostomy, and placement of feeding of nasojejunal tube on 04/02/2020. 3. Exploratory laparotomy, abdominal washout, temporary abdominal closure on 04/05/2020. 4. Exploratory laparotomy, abdominal washout, and fascia closure on 04/07/2020. All surgeries by Dr. Vicente. 5. Bilateral tube thoracostomies on 04/08/2020, to evacuate bilateral pleural effusions. HISTORY AND HOSPITAL COURSE: An 79-year-old woman with history of pancreatic carcinoma in remission. The patient was receiving chemotherapy for suppression. She developed acute onset abdominal pain, for which she was brought to the emergency department. Clinical and radiographic examination were consistent with acute ischemic bowel necrosis, for which patient underwent an emergent exploratory laparotomy, where a long segment of jejunum was resected. Postoperative course was complicated by septic shock, which required a large volume fluid resuscitation and addition to vasopressor and inotropic support. The patient achieved a temporary response, where the acute kidney injury resolved. Blood pressure was stabilizing, and vasopressor support was being weaned. She developed recurrent lactic acidosis, which prompted return to the operating room for exploration and finding no ongoing ischemic process. The patient continued to require low-dose vasopressor support. Note that the DKA had resolved within 36 hours of admission. The remainder of the postoperative course was complicated by acute respiratory distress syndrome with worsening hypoxemia and recurrent lactic acidosis. Despite aggressive critical care support with pressure control ventilation and inverse IE ratio, the patient failed to rally. Conference was had yesterday with the sisters. Decision was made therefore to re-evaluate the patient today at 10 o'clock. At that time, it was again re-emphasized that the patient's ARDS is recalcitrant to mechanical ventilator support. 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 She soon went into ventricular fibrillation, and no attempt was made to perform CPR. Ultimately, the patient developed asystole. At that time, she had no heart tone or breath sounds. She was pronounced at 11:20 a.m. Job ID: [id number]
--- NOTE | 2020-04-10 22:02 | PQF ---
CLINICAL DOCUMENTATION CLARIFICATION FORM: Dear : Iglesia Vicente Date / Time: 04/11/2020 Please exercise your independent, professional judgment in responding to the clarification form. Clinical indicators are provided on the bottom of this form for your review Please check appropriate box(es): HEART FAILURE: A. ACUITY [ x ] Acute [ ] Acute on Chronic [ ] Chronic B. TYPE: [ ] Systolic / HFrEF [ ] Diastolic / HFpEF [ ] Combined Systolic / Diastolic [ ] Other diagnosis [ ] Unable to determine In addition, please specify: Present on Admission (POA): [ ] Yes [ x ] No [ ] Unable to determine To be completed by CDI/Coding staff for physician review: Present Clinical Indicators - Signs / Symptoms / Labs Results and Location in Medical Record [ x ] Acute congestive heart failure exacerbation. Patient will be started on vasopressin drip to maintain better blood pressure. We will initiate gentle diuresis Progress note 04/03 by Iglesia Vicente DO [ x ] BNP 112.1 on 04/02, 2446.8 on 04/08 and 1405.7 on 04/09 Laboratory [ x ] Worsening bilateral pleural effusions. We will also place small chest tubes. Hopefully, this will help with recovery of functional residual capacity to improve both oxygentation and ventilation Progress note 04/08 by Iglesia Vicente DO Present Risk Factors Results and Location in Medical Record [ x ] Acute atrial fibrillation Progress note 04/03 by Iglesia Vicente DO [ x ] Hypertension, multiple intraabdominal surgeries, acute kidney injury Progress note 04/09 by Ned Herndon MD Present Treatments Results and Location in Medical Record [ x ] IV Lasix 04/02 Medications [ x ] Bilateral chest tube placement 04/08 by Iglesia Vicente DO General surgery procedure note CDS/Mill Dresser Signature: [email or web address] Phone #: Date/Time: This is a permanent part of the Medical Record [facility]
== END 2020-04-09 11:20 | disposition expired | DRG 329 ==
LOC: ERS 08:07 → CCU 10:53 → UNDODISIN 04-08 10:27
PROVIDERS: ADMIT Student in an Organized Health Care Education/Training Program; ATTEND Student in an Organized Health Care Education/Training Program
PROC: 0DB80ZZ Excision of Small Intestine, Open Approach (ICD-10-PCS; principal; 2020-03-31)
PROC: 3E033XZ Introduction of Vasopressor into Peripheral Vein, Percutaneous Approach (ICD-10-PCS; 2020-03-31)
PROC: 5A1945Z Respiratory Ventilation, 24-96 Consecutive Hours (ICD-10-PCS; 2020-03-31)
PROC: 0BH17EZ Insertion of Endotracheal Airway into Trachea, Via Natural or Artificial Opening (ICD-10-PCS; 2020-03-31)
PROC: 30233N1 Transfusion of Nonautologous Red Blood Cells into Peripheral Vein, Percutaneous Approach (ICD-10-PCS; 2020-03-31)
PROC: 0DB80ZZ Excision of Small Intestine, Open Approach (ICD-10-PCS; 2020-04-02)
PROC: 0D1A0ZA Bypass Jejunum to Jejunum, Open Approach (ICD-10-PCS; 2020-04-02)
PROC: 0DHA0UZ Insertion of Feeding Device into Jejunum, Open Approach (ICD-10-PCS; 2020-04-02)
PROC: 3E0M05Z Introduction of Adhesion Barrier into Peritoneal Cavity, Open Approach (ICD-10-PCS; 2020-04-02)
PROC: 3E0H76Z Introduction of Nutritional Substance into Lower GI, Via Natural or Artificial Opening (ICD-10-PCS; 2020-04-02)
PROC: 5A1945Z Respiratory Ventilation, 24-96 Consecutive Hours (ICD-10-PCS; 2020-04-05)
PROC: 0W9G0ZZ Drainage of Peritoneal Cavity, Open Approach (ICD-10-PCS; 2020-04-05)
PROC: 0JQ80ZZ Repair Abdomen Subcutaneous Tissue and Fascia, Open Approach (ICD-10-PCS; 2020-04-07)
PROC: 0W9G0ZZ Drainage of Peritoneal Cavity, Open Approach (ICD-10-PCS; 2020-04-07)
PROC: 0W9B00Z Drainage of Left Pleural Cavity with Drainage Device, Open Approach (ICD-10-PCS; 2020-04-08)
PROC: 0W9900Z Drainage of Right Pleural Cavity with Drainage Device, Open Approach (ICD-10-PCS; 2020-04-08)
DX: K55.029 Acute infarction of small intestine, extent unspecified (principal); E11.10 Type 2 diabetes mellitus with ketoacidosis without coma; J80 Acute respiratory distress syndrome; A41.9 Sepsis, unspecified organism; R65.21 Severe sepsis with septic shock; K63.1 Perforation of intestine (nontraumatic); K65.0 Generalized (acute) peritonitis; D61.810 Antineoplastic chemotherapy induced pancytopenia; N17.9 Acute kidney failure, unspecified; C25.9 Malignant neoplasm of pancreas, unspecified; E87.2 Acidosis; E87.1 Hypo-osmolality and hyponatremia; D62 Acute posthemorrhagic anemia; E87.0 Hyperosmolality and hypernatremia; J90 Pleural effusion, not elsewhere classified; Z51.5 Encounter for palliative care; Z66 Do not resuscitate; I11.0 Hypertensive heart disease with heart failure; I50.9 Heart failure, unspecified; E78.5 Hyperlipidemia, unspecified; F41.9 Anxiety disorder, unspecified; K21.9 Gastro-esophageal reflux disease without esophagitis; T45.1X5A Adverse effect of antineoplastic and immunosuppressive drugs, initial encounter; E87.5 Hyperkalemia; I73.9 Peripheral vascular disease, unspecified; K55.059 Acute (reversible) ischemia of intestine, part and extent unspecified; E83.51 Hypocalcemia; I48.91 Unspecified atrial fibrillation; I49.01 Ventricular fibrillation; E87.6 Hypokalemia; E83.42 Hypomagnesemia; I46.9 Cardiac arrest, cause unspecified; Z92.21 Personal history of antineoplastic chemotherapy; Z88.1 Allergy status to other antibiotic agents; Z88.2 Allergy status to sulfonamides; Z79.82 Long term (current) use of aspirin; Z79.4 Long term (current) use of insulin; Z90.710 Acquired absence of both cervix and uterus; Z90.722 Acquired absence of ovaries, bilateral; Z90.89 Acquired absence of other organs; Z88.5 Allergy status to narcotic agent
CPT/HCPCS: 36415; 36416; 36430; 71045; 74018; 74176; 76999; 80048; 80053; 80202; 82010; 82248; 82330; 82533; 82803; 82805; 83605; 83615; 83735; 83880; 84100; 84484; 84550; 85007; 85014; 85018; 85025; 85027; 85049; 85610; 85730; 86769; 86850; 86900; 86901; 87040; 87324; 87449; 88307; 90471; 90670; 93005; 93010; 93306; 94002; 94003; 94640; 96361; 96365; 96375; 96376; 99292; C9113; G0009; J0282; J0692; J1160; J1250; J1447; J1450; J1644; J1720; J1815; J1940; J2001; J2060; J2250; J2270; J2370; J2405; J2543; J2704; J3010; J3370; J3475; J3480; J3490; J7030; J7050; J7070; J7620; P9016; P9045; P9047; S0028